=== PATIENT | female | born 1955 | race Caucasian/White ===

== ENCOUNTER 2021-01-09 13:48 | Inpatient (IN) | payer MEDICARE, MEDICAID, SELFPAY ==
[2021-01-09] VITALS (19 sets, daily range): BP systolic 120–133; BP diastolic 63–78; PULSE 72–80; RESP 18–35; TEMP 36.2–36.7; O2SAT 92–99; BMI 32.7
--- NOTE | ~2021-01-09 | XR_ITS ---
EXAMINATION: [id number] INDICATION: Right pleural effusion post thoracentesis TECHNIQUE: AP and lateral views of the chest were obtained. COMPARISON: CT, 01/10/2021 FINDINGS: There are large pleural effusions, left greater than right. No pneumothorax is identified. Airspace opacities of the mid and lower lung zones are again seen. Cardiomegaly is noted. IMPRESSION: 1. Large left and moderate size right pleural effusions. No pneumothorax. 2. Airspace opacities of the mid and lower lung zones, consistent with atelectasis. 3. Cardiomegaly. Reviewed, dictated and finalized at location A. ASTRUCTURE SECURITY ARCHITECT IMPRESSION: 1. Large left and moderate size right pleural effusions. No pneumothorax. 2. Airspace opacities of the mid and lower lung zones, consistent with atelecta sis. 3. Cardiomegaly.
--- NOTE | ~2021-01-09 | US_ITS ---
EXAMINATION:US venous doppler LE BI INDICATION:Lower extremity swelling TECHNIQUE: Multiple grayscale, color flow and Doppler images of the bilateral lower extremity deep ve nous systems were obtained and reviewed. COMPARISON:No prior studies for comparison. FINDINGS: The common femoral, superficial femoral and popliteal veins demonstrate normal respiratory variation, augmentation and compressibility. Color flow is also seen within the posterior tibial, pe roneal, greater saphenous and profunda veins. IMPRESSION: 1: No lower extremity deep venous thrombosis. Reviewed, dictated and finalized at location A. ATRIC SPEECH LANGUAGE PATHOLOGIST
--- NOTE | ~2021-01-09 | US_ITS ---
EXAMINATION: US venous doppler E DATE: 01/11/2021 16:19 INDICATION: Left upper extremity swelling TECHNIQUE: [place] scale images with and without compression and Doppler images of the left upper extrem ity veins were obtained. COMPARISON: None. FINDINGS: The left internal jugular vein, subclavian vein, axillary vein, brachial veins, basilic vein, cephali c vein, radial vein, and ulnar vein are patent. IMPRESSION: 1. Patent left upper extremity veins. No evidence of deep venous thrombosis. Reviewed, dictated and finalized at location A. T MANUFACTURING SUPERVISOR
--- NOTE | ~2021-01-09 | XR_ITS ---
EXAMINATION: XR chest 1V portable DATE: 01/13/2021 05:39 INDICATION: Pleural effusion. TECHNIQUE: A single frontal view of the chest was obtained. COMPARISON: Chest single view 01/09/2021, chest CT 01/10/2021 FINDINGS: There are small right and moderate-sized left pleural effusions. There are airspace opaciti es in all lung zones bilaterally with a perihilar and basilar predominance. No pneumothorax. Cardiome claudio is noted. Surgical clips in the right upper quadrant are likely from cholecystectomy. IMPRESSION: 1. Diffuse lung disease with a perihilar and basilar predominance with improvement at right lung base , consistent with pulmonary edema versus pneumonia. 2. Small right and moderate-sized left pleural effusions. 3. Cardiomegaly. Reviewed, dictated and finalized at location A. SPERSON BURIAL NEEDS IMPRESSION: 1. Diffuse lung disease with a perihilar and basilar predominance with improvem ent at right lung base, consistent with pulmonary edema versus pneumonia. 2. Small right and moderate-sized left pleural effusions. 3. Cardiomegaly.
--- NOTE | ~2021-01-09 | XR_ITS ---
EXAMINATION: XR chest 1V portable INDICATION: Shortness of breath TECHNIQUE: Portable AP chest at 1515 hours COMPARISON: None available FINDINGS: Cardiomegaly is noted. A diffuse interstitial pattern is present. More focal airspace opaci ties are present in the lung bases. There are moderate-sized pleural effusions. No pneumothorax is id entified. IMPRESSION: 1. Cardiomegaly with pulmonary edema. 2. Moderate-sized pleural effusions. 3. Bibasilar airspace opacities, consistent with atelectasis versus pneumonia. Reviewed, dictated and finalized at location A. ING OFFICER
--- NOTE | ~2021-01-09 | XR_ITS ---
EXAMINATION: XR abdomen obstructive series EXAM DATE: 01/15/2021 13:51 INDICATION: Nausea. TECHNIQUE: Frontal upright projection of the upper abdomen, frontal projection of the lower abdomen f or interpretation. There is no prior study for comparison. FINDINGS: There is moderate to large amount of colonic stool and gas, and patient may have fecal imp action. No small bowel obstruction suspected. There is left mid abdominal suture/anastomosis material . There are cholecystectomy clips. Right hip gamma nail. There are bony degenerative changes. No evid ence of basilar pleural effusions and adjacent airspace disease. No free intraperitoneal gas suspecte d. IMPRESSION: Moderate to large amount of colonic stool and gas, constipation, possible fecal impaction . Reviewed, dictated and finalized at location A. IMPRESSION: Moderate to large amount of colonic stool and gas, constipation, po ssible fecal impaction.
--- NOTE | ~2021-01-09 | US_ITS ---
EXAMINATION: US thoracentesis DATE: 01/12/2021 11:16 INDICATION: Pleural effusions TECHNIQUE: The procedure and its risks and benefits were discussed with the patient. Potential risks discussed included bleeding, infection, and pneumothorax. The patient understood the risks and agreed to proceed. The skin was prepped and draped in sterile fashion. 1% lidocaine was used for local anes thesia. Under ultrasound guidance, a 5 Fr catheter with trochar was advanced into the right pleural e ffusion. Fluid was aspirated. The catheter was removed, and a dressing was applied. There were no imm ediate complications. FINDINGS: Ultrasound images demonstrate a right pleural effusion and the catheter within the fluid. IMPRESSION: 1. Successful ultrasound-guided thoracentesis yielding 1000 mL of clear, yellow fluid. Reviewed, dictated and finalized at location A. NG TECHNICIAN
--- NOTE | ~2021-01-09 | US_ITS ---
EXAMINATION: US renal BI DATE: 01/16/2021 10:53 INDICATION: Elevated creatinine TECHNIQUE: Multiple ultrasound grayscale images of the kidneys were obtained. COMPARISON: None. FINDINGS: The right kidney measures 9.6 x 4.1 x 3.8 cm. The left kidney measures 8.9 x 4.6 x 3.5 cm. The kidney s demonstrate normal echogenicity. There is no hydronephrosis in either kidney. No stones identified . The bladder is normal. IMPRESSION: 1. Normal kidneys without hydronephrosis. Reviewed, dictated and finalized at location B.
--- NOTE | ~2021-01-09 | CT_ITS ---
EXAMINATION: CTA chest PE protocol EXAM DATE: 01/11/2021 10:31 INDICATION: Elevated D-dimer, recent hospital stay, hypoxia. TECHNIQUE: Spiral CTA of the chest (pulmonary arteries) was performed with 100 cc Omnipaque 350 intr avenous contrast injection. Images were acquired during the pulmonary arterial phase. Coronal maxi mum intensity projection 3D-reconstructions were created by the technologist on dedicated workstation . Axial, coronal and sagittal reformatted images were reviewed. The dose-length product (DLP) for t his examination was 584.00 mGy-cm. The exposure was tailored according to patient size (auto mA exp osure control), and iterative reconstruction (ASIR) was used as additional dose reduction technique. Correlation is made to chest x-ray from yesterday. FINDINGS: The main, central pulmonary arteries are dilated which can indicate elevated pulmonary gabriel rial pressure, pulmonary arterial hypertension. There are no pulmonary emboli in the 1st through 3r d order (central and interlobar) pulmonary arteries. Some loss of attenuation in the segmental pulmo nary arteries due to respiratory motion, but no intraluminal filling defects suspected. No thoracic aortic dissection. There our large right, and moderate to large left-sided pleural effusions. The lingula and left lower lobe are completely collapsed and there is multi segmental right lower lobe atelectasis. Some scatte red bilateral upper lobe regions of groundglass attenuation, could be edema or pneumonia. Tracheobron chial tree is patent. There is no mediastinal, hilar or axillary lymphadenopathy. There is no pne umothorax. There is cardiomegaly and trace pericardial effusion. There is moderate coronary arteri al calcification, arterial sclerosis. Cholecystectomy clips. Low-density incompletely imaged left ad renal gland lesion probably adenoma. There are no osteoblastic or osteolytic lesions identified. The re is moderate thoracic dextroscoliosis. IMPRESSION: 1. Limited segmental evaluation, but no pulmonary emboli are suspected. 2. Large right, moderate to large left pleural effusions with adjacent atelectasis, collapsed lingul a and left lower lobe, nearly collapsed right lower lobe. If symptomatic, consider right-sided thorac entesis. 3. Scattered upper lobe groundglass opacities, edema or pneumonia. 4. Pulmonary arterial hypertension. 5. Cardiomegaly. Reviewed, dictated and finalized at location B. OFF MACHINE OPERATOR CLOTH IMPRESSION: 1. Limited segmental evaluation, but no pulmonary emboli are suspected. 2. Large right, moderate to large left pleural effusions with adjacent atelect asis, collapsed lingula and left lower lobe, nearly collapsed right lower lobe. If symptomatic, consider right-sided thoracentesis. 3. Scattered upper lobe groundglass opacities, edema or pneumonia. 4. Pulmonary arterial hypertension. 5. Cardiomegaly.
--- NOTE | 2021-01-09 14:27 | ED.GENADULT ---
HPI - General Adult General Chief complaint: Shortness of Breath/Dyspnea Stated complaint: LOW O2 DURING THERAPY Time Seen by Provider: 01/09/21 13:53 Source: patient History of Present Illness HPI narrative: Patient is a 65 y/o female [facility] sats. She states that she has been SOB for 1 week. Her sat was reportedly 88% on RA and she was placement on O2. She has some cough, but no chest pain or fever. Related Data Home Medications Medication Instructions Recorded Confirmed All Day Allergy (cetirizine) 1 tab-cap PO DAILY 01/09/21 01/09/21 Saccharomyces boulardii [Florastor] 250 mg PO BID 01/09/21 01/09/21 Saccharomyces boulardii [Florastor] 250 mg PO BID 01/09/21 01/09/21 allopurinol 100 mg PO DAILY 01/09/21 01/09/21 apremilast [Otezla] 30 mg PO BID 01/09/21 01/09/21 aspirin [Aspir-81] 81 mg PO DAILY 01/09/21 01/09/21 atorvastatin 80 mg PO HS 01/09/21 01/09/21 bumetanide 0.5 mg PO DAILY 01/09/21 01/09/21 cranberry fruit concentrate [Azo 250 mg PO DAILY 01/09/21 01/09/21 Cranberry] escitalopram oxalate 10 mg PO DAILY 01/09/21 01/09/21 famotidine [Pepcid] 20 mg PO DAILY 01/09/21 01/09/21 ferrous sulfate 325 mg PO DAILY 01/09/21 01/10/21 fluticasone propionate [Flonase 1 spray INTRANASAL DAILY 01/09/21 01/09/21 Allergy Relief] furosemide [Lasix] 20 mg PO DAILY 01/09/21 01/09/21 magnesium oxide 400 mg PO BID 01/09/21 01/09/21 melatonin 5 mg PO HS PRN 01/09/21 01/09/21 metoprolol tartrate 50 mg PO BID 01/09/21 01/09/21 nystatin 100,000 unit TOPICAL TID 01/09/21 01/09/21 ondansetron 4 mg PO Q8H PRN 01/09/21 01/09/21 oxybutynin chloride 5 mg PO HS 01/09/21 01/09/21 potassium chloride [K-Tab] 40 meq PO BID 01/09/21 01/09/21 sitagliptin [Januvia] 50 mg PO DAILY 01/09/21 01/09/21 sodium bicarbonate 650 mg PO BID 01/09/21 01/09/21 tacrolimus 1 applic TOPICAL BID 01/09/21 01/09/21 travoprost [Travatan Z] 1 drp EACH EYE HS 01/09/21 01/09/21 vancomycin 125 mg PO BID 01/09/21 01/09/21 Allergies Allergy/AdvReac Type Severity Reaction Status Date / Time morphine Allergy Mild HIVES/RASH Verified 01/12/21 10:35 hydrocodone AdvReac Nausea Verified 01/12/21 10:35 timolol AdvReac Nausea Verified 01/12/21 10:35 Review of Systems Constitutional: Constitutional: Denies chills, Denies fever(s), Denies headache(s) and Denies weakness Eyes: Eyes: Denies blurry vision ENT: Denies headache(s) and Denies neck pain Cardiovascular: Cardiovascular: Denies chest pain and Reports dyspnea Respiratory: Respiratory: Reports cough and Reports dyspnea Gastrointestinal: Gastrointestinal: Denies abdominal pain, Denies diarrhea, Denies nausea and Denies vomiting Genitourinary: Genitourinary: Denies hematuria and Denies dysuria Musculoskeletal: Musculoskeletal: Denies back pain and Denies neck pain Neurologic: Denies headache(s) and Denies weakness FORMERLY [facility], 1928–1983 Past Medical History Medical History (Updated 01/15/21 @ 15:56 by Lorena Muniz MD) Anxiety Anxiety Aortic stenosis moderate aortic valve stenosis with a peak velocity of 239 cm/s, mean gradient of 12 mmHg, and aortic valve area of 1.2 cm2 Aortic stenosis moderate aortic valve stenosis with a peak velocity of 239 cm/s, mean gradient of 12 mmHg, and aortic valve area of 1.2 cm2 Atrial fibrillation Atrial fibrillation C. difficile colitis Patient was diagnosed early December 2020 and is supposed to remain on p.o. vancomycin until 01/24/2021 C. difficile colitis Patient was diagnosed early December 2020 and is supposed to remain on p.o. vancomycin until 01/24/2021 CHF (congestive heart failure) CHF (congestive heart failure) Chronic kidney disease Chronic kidney disease COPD (chronic obstructive pulmonary disease) COPD (chronic obstructive pulmonary disease) Coronary artery disease Coronary artery disease Diabetes mellitus Diabetes mellitus Essential hypertension Essential hypertension GERD (gastroesophageal reflux disease) GERD (gastroesophageal reflux disease) G
--- NOTE | 2021-01-09 14:28 | ECG_ITS ---
Measurements Intervals [place] Rate: 76 P: 194 [place]: 150 QRS: 167 QRSD: 64 T: 0 QT: 365 QTc: 412 Interpretive Statements SINUS RHYTHM OR ECTOPIC ATRIAL RHYTHM RIGHT AXIS DEVIATION POSSIBLE LEFT ATRIAL ENLARGEMENT RSR' IN V1 OR V2, CONSIDER RIGHT VENTRICULAR HYPERTROPHY OR RIGHT VCD LOW VOLTAGE- DIFFUSE LEADS BORDERLINE ST-T WAVE ABNORMALITY- ANTEROLAT/INF LEADS BASELINE ARTIFACT- V1-V6 BORDERLINE ECG Electronically Signed On 01-09-2021 16:32:30 INTEGRITY ASSESSOR by Demian Smith D.O.
[2021-01-09 15:15] LABS: Basophils Absolute Auto 0.1 K/mm3 (0.0-0.1); Basophils Percent Auto 0.9 % (0.2-1.2); Eosinophils Absolute Auto 0.1 K/mm3 (0-0.3); Eosinophils Percent Auto 0.8 % (0-4.4); Hematocrit 32.9 % (37.0-47.0); Hemoglobin 10.1 g/dL (12.0-15.0); Immature Granulocyte Absolute 0.05 K/mm3 (0.00-0.031); Immature Granulocyte Percent A 0.4 % (0-0.5); Lymphocytes Absolute Auto 0.79 K/mm3 (0.9-3.2); Lymphocytes Percent Auto 6.9 % (18.3-44.2); Mean Corpuscular HGB Conc 30.7 g/dl (32-36); Mean Corpuscular Hemoglobin 28.9 pg (26-34); Mean Corpuscular Volume 94.3 fl (80-100); Mean Platelet Volume 8.9 fl (7.4-10.4); Monocytes Absolute Auto 0.6 K/mm3 (0.1-0.6); Monocytes Percent Auto 5.5 % (2.6-8.5); Neutrophils Absolute Auto 9.7 K/mm3 (1.3-6.7); Neutrophils Percent Auto 85.5 % (45.5-73.1); Platelet Count Result 345 k/mm3 (150-375); Red Blood Count 3.49 M/mm3 (4.2-5.4); White Blood Count 11.4 K/mm3 (4.5-10.0)
[2021-01-09 15:25] LABS: Alanine Aminotransferase 20 U/L (4-35); Albumin Level 2.3 g/dL (3.5-5.1); Alkaline Phosphatase 169 U/L (38-126); Anion Gap -2 mmol/L (8-16); Aspartate Amino Transferase 42 U/L (14-36); Bilirubin,Total 0.3 mg/dL (0.2-1.3); Blood Urea Nitrogen 25 mg/dL (7-17); Calcium 7.9 mg/dL (8.4-10.2); Carbon Dioxide 33 mmol/L (22-30); Chloride 109 mmol/L (98-107); Estimated CRCL calculation 51 ml/min; Estimated Glomerular Filt Rate 50; Glucose 129 mg/dL (65-105); Potassium 5.7 mmol/L (3.4-5.0); Sodium 140 mmol/L (137-145)
[2021-01-09 15:43] LABS: NT Pro B Type Natriuretic Pept 24700 PG/ML (5-100); Troponin I 0.112 ng/mL (0.000-0.034)
[2021-01-09] MEDS: FUROSEMIDE INJ 40 MG/4 ML VIAL IV PUSH (16:46)
[2021-01-09 19:09] LABS: Troponin I 0.099 ng/mL (0.000-0.034)
--- NOTE | 2021-01-09 19:38 | ADMGEN ---
This patient, Ana Paula Walden, was admitted to IMU Room 206-02 at 1830. Patient/family oriented to hospital policies and general routines including ID bracelet, bed and alarms, visiting hours, pain management, procedures, bathroom and other care routines, personal items, smoking policy, room service/diet, and visiting hours. Information on how to activate the Rapid Response Team has been discussed. Patient/Family are encouraged to report perceived risks to care and to ask questions if they do not understand what they are told or what they should do.
[2021-01-10] VITALS (11 sets, daily range): BP systolic 115–133; BP diastolic 63–84; PULSE 69–84; RESP 18–22; TEMP 36.2–36.4; O2SAT 91–95
--- NOTE | 2021-01-10 | ECHO_ITS ---
Patient Info Name: Ana Paula Walden Age: 65 years : 1955 Gender: Female Ht: 65 in Wt: 189 lbs BSA: 2.01 m2 HR: 78 bpm BP: 115 / 63 mmHg Heart Rhythm: Sinus Rhythm Technical Quality: Good Exam Date: 01/10/2021 9:16 AM Exam Location: [facility] Pulmonary Exam Room: [facility] Patient Status: Inpatient Admit Date: 01/10/2021 Staff Ordering Physician: Yoly Horowitz PA-C Rib Bender: Sara Mobley RDCS Attending Provider: Yoly Horowitz PA-C Referring Physician: Lor CARD; Exam Type: CA echo doppler color flow Study Info Indications - CAD HTN HX/O AFIB COPD - CHF EXACERBATION Complete two-dimensional, color flow and Doppler transthoracic echocardiogram is performed. Summary 1. Complete two-dimensional, color flow and Doppler transthoracic echocardiogram is performed. 2. Left ventricular chamber dimension is mildly enlarged. 3. Left ventricular systolic function is normal, estimated at 55-60%. 4. There is mildly increased left ventricular wall thickness. 5. The left ventricular diastolic function is grade II diastolic dysfunction. 6. The inferior wall, apical septum, and apical cap are hypokinetic. 7. There is moderate aortic valve stenosis with a peak velocity of 239 cm/s, mean gradient of 12 mmHg, and aortic valve area of 1.2 cm2. 8. There is mild aortic valve regurgitation. 9. There is mild mitral valve regurgitation. 10. The mitral valve has thickened leaflets and calcified leaflets. 11. There is mild tricuspid valve regurgitation. 12. Mild pulmonary hypertension, estimated pulmonary arterial systolic pressure is 36 mmHg. 13. There is mild pulmonic regurgitation. Left Ventricle Left ventricular chamber dimension is mildly enlarged. Left ventricular systolic function is normal, estimated at 55-60%. There is mildly increased left ventricular wall thickness. The left ventricular diastolic function is grade II diastolic dysfunction. The inferior wall, apical septum, and apical cap are hypokinetic. Right Ventricle Right ventricular chamber dimension is normal. Right ventricular systolic function is normal. Left Atria Left atrial chamber dimension is mildly enlarged. Right Atria Right atrial chamber dimension is normal. Atrial Septum Intact interatrial septum visualized by color flow imaging. Aortic Valve The aortic valve is trileaflet. There is moderate aortic valve stenosis with a peak velocity of 239 cm/s, mean gradient of 12 mmHg, and aortic valve area of 1.2 cm2. There is mild aortic valve regurgitation. Pulmonic Valve The pulmonic valve is normal. There is no pulmonic valve stenosis. There is mild pulmonic regurgitation. Mitral Valve The mitral valve has thickened leaflets and calcified leaflets. There is no mitral valve stenosis. There is mild mitral valve regurgitation. Tricuspid Valve The tricuspid valve leaflets are normal. There is no significant tricuspid valve stenosis. There is mild tricuspid valve regurgitation. Mild pulmonary hypertension, estimated pulmonary arterial systolic pressure is 36 mmHg. Pericardium/Pleural The pericardium appears normal. There is no pericardial effusion. Inferior Vena Cava Dilated inferior vena cava with >50% collapse upon inspiration consistent with elevated right atrial pressure, 10 mmHg. Aorta The aortic root size at the sinus of Valsalva is normal. The prox ascending aorta size is normal. There is mild aortic atherosclerosis. Leyla
--- NOTE | 2021-01-10 02:41 | PM.IMHP ---
H&P: HPI History of Present Illness Date/Time: 01/10/21 02:41 Chief Complaint: Low oxygen saturations Narrative: Ana Paula Walden is a 65 year old female of recent diagnosis of C diff 3 weeks ago, CHF, coronary artery disease, hypertension, COPD, and diabetes who presented from [facility] while participating in physical therapy. The patient had evidently does been discharged from another facility last week due to CHF exacerbation. According to alf records the patient was discharged from the hospital 12/08/2020. The patient is a fair historian due to her history of intellectual disability. The patient reports that she has been short of breath for about 1 week. She denies any chest pain. She felt as if her heart was racing but her heart rate was normal on arrival to the hospital and on evaluation at the alf. Her oxygen saturations on room air were 88%. She has been having a mild nonproductive cough. She tested negative for COVID at the alf. The patient was diagnosed with is C diff colitis and early December. She is post continue p.o. vancomycin until 01/24/2021. She reports that she is still having some loose stools. She denies any abdominal pain. She is on probiotics. Patient has remained afebrile. She has edema noted to bilateral hands 1+, trace edema lower extremities. She has difficulty with urinary incontinence. She denies any hematuria. She is currently alert and oriented x4. The patient reports that her shortness of breath has improved significantly with nasal cannula oxygen. She is satting 92% on 4 L nasal cannula. Source of information is alf records and patient report. The patient is only a fair historian. The patient has never been to this facility before. Her last hospitalization was at [place]. Review of Systems Review of Systems: Narrative: 12 systems were reviewed with pertinent positives and negatives per HPI. Except as documented in the HPI, all other systems were reviewed and are negative. [facility] Past Medical History Medical History (Updated 01/10/21 @ 03:52 by Gina Tolbert DO) Anxiety Atrial fibrillation C. difficile colitis Patient was diagnosed early December 2020 and is supposed to remain on p.o. vancomycin until 01/24/2021 CHF (congestive heart failure) Chronic kidney disease COPD (chronic obstructive pulmonary disease) Coronary artery disease Essential hypertension GERD (gastroesophageal reflux disease) Glaucoma Hyperlipidemia Hypo-osmolar hyponatremia Intellectual disability Psoriatic arthritis Surgical History Surgical History (Updated 01/10/21 @ 03:37 by Gina Tolbert DO) History of hysteroscopy January 2013 Hx of cholecystectomy S/P CABG x 2 Family History Family History (Updated 01/10/21 @ 03:46 by Gina Tolbert DO) Mother Lung disease Social History Social History (Updated 01/10/21 @ 03:50 by Gina Tolbert DO) Social History: She reports that she has lived at [facility] for approximately 1 year. She is and her lives at the alf with her. They have been for 32 years. They moved to the alf when her had a lower extremity amputation. She reports that both of her parents are still living. Primary care provider: Dr. Giovanny Barajas Code status: Full code per state form Smoking status: Never smoker Alcohol intake: never Substance use: never Occupation/Education: other Additional occupation/education comments: She is on disability due to her intellectual impairment. Gender identity (if verbalized by the patient): Female Spiritual care concerns: No Meds Home Medications and Allergies Home Medications Medication Instructions Recorded Confirmed Type All Day Allergy (cetirizine) 1 tab-cap PO DAILY 01/09/21 01/09/21 History Saccharomyces boulardii [Florastor] 250 mg PO BID 01/09/21 01/09/21 History Saccharomyces boulardi
[2021-01-10] MEDS: LATANOPROST 0.005% OP SOLN 2.5 ML BTL 1 DROP EACH EYE ×2 (03:15→20:44)
[2021-01-10] MEDS: METOPROLOL TARTRATE 50 MG TAB PO ×3 (03:15→20:42)
[2021-01-10] MEDS: ATORVASTATIN 40 MG TABLET 80 MG PO ×2 (03:15→20:43)
--- NOTE | 2021-01-10 04:33 | PC.NURSE ---
This patient, Ana Paula Walden, was received from [IMU] on 01/10/21 at 0420. Patient/family oriented to unit policies and routines
--- NOTE | 2021-01-10 04:34 | PC.NURSE ---
patient transferred to 3 rd med surg. report given to jessica tijerina.
[2021-01-10 05:51] LABS: Hemoglobin 9.4 g/dL (12.0-15.0); Mean Corpuscular HGB Conc 30.3 g/dl (32-36); Mean Corpuscular Hemoglobin 28.3 pg (26-34); Mean Corpuscular Volume 93.4 fl (80-100); Mean Platelet Volume 8.7 fl (7.4-10.4); Platelet Count Result 321 k/mm3 (150-375); Red Blood Count 3.32 M/mm3 (4.2-5.4); Red Cell Distribution Width 17.7 % (11.5-14.5); White Blood Count 9.7 K/mm3 (4.5-10.0)
[2021-01-10 05:57] LABS: Hemoglobin A1C 4.8 % (<5.7)
[2021-01-10 06:04] LABS: Anion Gap -1 mmol/L (8-16); Blood Urea Nitrogen 24 mg/dL (7-17); Calcium 8.1 mg/dL (8.4-10.2); Carbon Dioxide 32 mmol/L (22-30); Chloride 110 mmol/L (98-107); Estimated CRCL calculation 50 ml/min; Estimated Glomerular Filt Rate 50; Glucose 91 mg/dL (65-105); Potassium 5.3 mmol/L (3.4-5.0); Sodium 141 mmol/L (137-145)
[2021-01-10] MEDS: FUROSEMIDE INJ 40 MG/4 ML VIAL IV PUSH (07:28)
[2021-01-10 08:26] LABS: Glucose Point of Care 95 (65-105)
[2021-01-10] MEDS: SODIUM BICARBONATE TAB 650 MG TABLET PO ×2 (08:55→16:41)
[2021-01-10] MEDS: ENOXAPARIN 40 MG/0.4 ML SYRINGE SUB-Q (08:55)
[2021-01-10] MEDS: SACCHAROMYCES BOULARDII 250 MG CAPSULE PO ×2 (08:55→16:41)
[2021-01-10] MEDS: ESCITALOPRAM OXALATE 10 MG TABLET PO (08:56)
[2021-01-10] MEDS: ASPIRIN 81 MG ENTERIC TABLET PO (08:56)
[2021-01-10] MEDS: FLUTICASONE PROPIONATE 0.05% NA SPR 16 GM BTL (*BKC) 1 SPRAY NASAL (08:56)
[2021-01-10] MEDS: MAGNESIUM OXIDE 400 MG TABLET PO ×2 (08:56→16:42)
[2021-01-10] MEDS: FAMOTIDINE 20 MG TABLET PO (08:56)
[2021-01-10] MEDS: allopurinoL 100 MG TABLET PO (08:56)
[2021-01-10 12:00] LABS: Glucose Point of Care 113 (65-105)
--- NOTE | 2021-01-10 14:19 | PM.IMPN ---
Progress Note: A&P Assessment and Plan (1) Acute respiratory failure with hypoxia: Code(s): J96.01 - Acute respiratory failure with hypoxia Status: Acute Assessment and Plan: CXR demonstrates pulmonary edema, moderate pleural effusions, and bibasilar opacities. BNP markedly elevated at 24,700. She was initially on 4 liters per nasal cannula and she was weaned to 3 liters per nasal cannula today. Acute hypoxic respiratory failure is most likely secondary to CHF exacerbation. D. Dimer ordered given recent hospitalization and elevated. Clinically, she does not appear to have pneumonia and bibasilar opacities are likely consistent with atelectasis. Order CTA chest to r/o PE given hypoxia, elevated D. dimer, recent hospital stay Continue supplemental oxygen as needed to maintain oxygen saturation >90%, waen as tolerated Further plan as outlined below (2) CHF exacerbation: Qualifiers: Heart failure type: unspecified Qualified Code(s): I50.9 - Heart failure, unspecified Code(s): I50.9 - Heart failure, unspecified Status: Acute Assessment and Plan: Supported by CXR findings of pulmonary edema, moderate pleural effusions, and BNP 24,700. She notes increased dyspnea for 1 month, worse in the past week, orthopnea, and increased swelling to extremities. Echocardiogram performed today (01/10/21) demonstrates EF 55-60%, grade II diastolic dysfunction, hypokinesis of the inferior wall, apical septum, and apical cap, moderate aortic stenosis. She has responded well to diuresis. Cardiology consulted and input appreciated Continue IV lasix Monitor volume status closely with daily weight. Urine output is difficult due to chronic incontinence. (3) Troponin level elevated: Code(s): R77.8 - Other specified abnormalities of plasma proteins Status: Acute Assessment and Plan: Troponin was elevated to 0.112 but trend was flat. This is most likely secondary to acute CHF exacerbation and felt unlikely secondary to ACS. She has no complaints of chest pain. I have asked cardiology to see her. Her previous echo and EkGs have been requested. Echocardiogram performed today (01/10/21) demonstrates hypokinesis of the inferior wall, apical septum, and apical cap. Cardiology is following with input greatly appreciated She will need Lexiscan which was already recommended during her last hospital stay (4) Hyperkalemia: Code(s): E87.5 - Hyperkalemia Status: Acute Assessment and Plan: Improving. Likely secondary to continued oral potassium supplementation and underlying CKD. Will monitor closely with repeat BMP tomorrow Hold oral potassium supplement (5) C. difficile colitis: Code(s): A04.72 - Enterocolitis due to Clostridium difficile, not specified as recurrent Status: Acute Assessment and Plan: Diagnosed early Dec 2020. She still reports 3-4 loose stools daily but much improved overall since starting treatment in early December. She has no abdominal pain or distention. Continue oral vancomycin Initiate isolation precautions (6) Diabetes mellitus: Code(s): E11.9 - Type 2 diabetes mellitus without complications Status: Acute Assessment and Plan: Hemoglobin A1c is 4.8 on 01/10/21. Hold januvia while inpatient Continue ACHS glucose monitoring, sliding scale insulin, and hypoglycemia protocol for now although may consider discontinuing if blood sugar is well-controlled given A1c (7) Essential hypertension: Code(s): I10 - Essential (primary) hypertension Status: Acute Assessment and Plan: Blood pressures are at target. Most recent BP 121/63. Continue metoprolol Continue to monitor ad adjust treatment as necessary (8) Atrial fibrillation: Code(s): I48.91 - Unspecified atrial fibrillation Status: Inactive Assessment and Plan: Paroxysmal. She follows
[2021-01-10 15:27] LABS: D Dimer 2.26 ug/mL (<0.48)
--- NOTE | 2021-01-10 15:28 | PM.CNCAR ---
Assessment and Plan Assessment and plan (1) Troponin level elevated: Code(s): R77.8 - Other specified abnormalities of plasma proteins Status: Acute Assessment and Plan: this is related to CHF. Unlikely from acute plaque rupture. (2) CHF exacerbation: Qualifiers: Heart failure type: unspecified Qualified Code(s): I50.9 - Heart failure, unspecified Code(s): I50.9 - Heart failure, unspecified Status: Acute Assessment and Plan: Acute on chronic likely mixed systolic and diastolic congestive heart failure. Echocardiogram has already been performed and will review. continue beta-bella, IV diuretics but will reduce furosemide down to 40 mg IV daily. follow electrolytes (3) CAD (coronary artery disease): Code(s): I25.10 - Atherosclerotic heart disease of [place] coronary artery without angina pectoris Status: Acute Assessment and Plan: Plan is already established for outpatient stress test per Dr. Dias . Continue aspirin, beta-bella, statin (4) C. difficile colitis: Code(s): A04.72 - Enterocolitis due to Clostridium difficile, not specified as recurrent Status: Acute Assessment and Plan: on vancomycin (5) Essential hypertension: Code(s): I10 - Essential (primary) hypertension Status: Acute Assessment and Plan: at goal History of Present Illness History of Present Illness Consult date/time: 01/10/21 15:28 Requesting physician: Yoly Horowitz PA-C Consult reason: congestive heart failure and Other (Elevated troponin) Reason For Visit: chf Narrative: date of service 01/10/2021 History: Patient is a 65-year-old female who has a history of coronary artery disease, paroxysmal atrial fibrillation who follows with Dr. Dias. She was recently hospitalized at [facility] for C diff infection. She also had elevated troponins at that time and the plan was for an outpatient stress test to be performed after C diff infection is treated. She came to this hospital though after only being discharged recently because of shortness of breath. She states that she has been short of breath for at least a month. She also has been having some worsening lower extremity swelling also for about 1 month. She denies any chest pain, syncope, presyncope, paroxysmal nocturnal dyspnea, orthopnea, palpitations. She has no bleeding problems. She is still having diarrhea. She was found to have at least some trace to mild edema in her hands and legs. She was admitted for further workup evaluation especially since she was satting 92% on 4 L via nasal cannula. Review of Systems Review of Systems: All systems reviewed & are unremarkable except as noted in HPI and below Constitutional: Constitutional: Reports weakness Eyes: Eyes: Denies blurry vision ENT: Reports Normal hearing present Cardiovascular: Cardiovascular: Denies chest pain Respiratory: Respiratory: Reports dyspnea and Reports dyspnea on exertion Gastrointestinal: Gastrointestinal: Denies abdominal pain and Reports diarrhea Genitourinary: Genitourinary: Denies flank pain Musculoskeletal: Musculoskeletal: Denies myalgias and Denies neck pain Integumentary/Breasts: Skin/Breast: Reports dry skin Neurologic: Denies headache(s) and Denies numbness Psychiatric: Psychiatric: Denies anxiety and Denies confusion Endocrine: Endocrine: Denies fatigue Hematologic/Lymphatic: Hematologic/Lymphatic: Denies easy bleeding and Denies easy bruising Allergic/Immunologic: Allergic/Immunologic: Denies GI upset with certain foods PMFSH Past Medical History Medical History Anxiety Atrial fibrillation C. difficile colitis Patient was diagnosed early December 2020 and is supposed to remain on p.o. vancomycin until 01/24/2021 CHF (congestive heart failure) Chronic kidney disease COPD (chronic obstructive pulmonary disease) Coron
[2021-01-10 17:50] LABS: Glucose Point of Care 180 (65-105)
[2021-01-10 20:27] LABS: Glucose Point of Care 132 (65-105)
[2021-01-11 06:00] VITALS: BP 140/84; PULSE 67; RESP 20; TEMP 36.2; O2SAT 90
[2021-01-11 06:16] LABS: Basophils Absolute Auto 0.1 K/mm3 (0.0-0.1); Basophils Percent Auto 1.1 % (0.2-1.2); Eosinophils Absolute Auto 0.1 K/mm3 (0-0.3); Eosinophils Percent Auto 1.3 % (0-4.4); Hematocrit 31.8 % (37.0-47.0); Hemoglobin 9.6 g/dL (12.0-15.0); Immature Granulocyte Absolute 0.05 K/mm3 (0.00-0.031); Immature Granulocyte Percent A 0.6 % (0-0.5); Lymphocytes Absolute Auto 0.81 K/mm3 (0.9-3.2); Lymphocytes Percent Auto 9.9 % (18.3-44.2); Mean Corpuscular HGB Conc 30.2 g/dl (32-36); Mean Corpuscular Hemoglobin 28.4 pg (26-34); Mean Corpuscular Volume 94.1 fl (80-100); Mean Platelet Volume 8.7 fl (7.4-10.4); Monocytes Absolute Auto 0.7 K/mm3 (0.1-0.6); Monocytes Percent Auto 8.6 % (2.6-8.5); Neutrophils Absolute Auto 6.4 K/mm3 (1.3-6.7); Neutrophils Percent Auto 78.5 % (45.5-73.1); Platelet Count Result 293 k/mm3 (150-375); Red Blood Count 3.38 M/mm3 (4.2-5.4); Red Cell Distribution Width 17.9 % (11.5-14.5); White Blood Count 8.2 K/mm3 (4.5-10.0)
[2021-01-11 06:32] LABS: Alanine Aminotransferase 17 U/L (4-35); Albumin Level 2.4 g/dL (3.5-5.1); Alkaline Phosphatase 159 U/L (38-126); Anion Gap 1 mmol/L (8-16); Aspartate Amino Transferase 31 U/L (14-36); Bilirubin,Total 0.3 mg/dL (0.2-1.3); Blood Urea Nitrogen 24 mg/dL (7-17); Calcium 8.2 mg/dL (8.4-10.2); Carbon Dioxide 30 mmol/L (22-30); Chloride 109 mmol/L (98-107); Estimated CRCL calculation 54 ml/min; Estimated Glomerular Filt Rate 56; Glucose 94 mg/dL (65-105); Potassium 5.3 mmol/L (3.4-5.0); Sodium 140 mmol/L (137-145)
[2021-01-11 08:00] VITALS: O2SAT 90
[2021-01-11 08:07] LABS: Glucose Point of Care 111 (65-105)
--- NOTE | 2021-01-11 09:25 | PM.PNCARD ---
Progress Note: A&P Assessment and Plan (1) Troponin level elevated: Code(s): R77.8 - Other specified abnormalities of plasma proteins Status: Acute Assessment and Plan: this is related to CHF. Unlikely from acute plaque rupture. (2) CHF exacerbation: Qualifiers: Heart failure type: unspecified Qualified Code(s): I50.9 - Heart failure, unspecified Code(s): I50.9 - Heart failure, unspecified Status: Acute Assessment and Plan: Acute on chronic likely mixed systolic and diastolic congestive heart failure. continue beta-bella, will increase her furosemide back to 40 mg IV b.i.d.. Will also check a pre-albumin level (3) CAD (coronary artery disease): Code(s): I25.10 - Atherosclerotic heart disease of [place] coronary artery without angina pectoris Status: Acute Assessment and Plan: Plan is already established for outpatient stress test per Dr. Dias . Continue aspirin, beta-bella, statin (4) C. difficile colitis: Code(s): A04.72 - Enterocolitis due to Clostridium difficile, not specified as recurrent Status: Acute Assessment and Plan: on vancomycin (5) Essential hypertension: Code(s): I10 - Essential (primary) hypertension Status: Acute Assessment and Plan: at goal (6) Aortic stenosis: Code(s): I35.0 - Nonrheumatic aortic (valve) stenosis Status: Acute Assessment and Plan: Moderate Subjective Date/time seen: 01/11/21 09:25 Interval history: 65-year-old admitted for shortness of breath and diarrhea Date of service 01/11/2021: She should more short of breath today. Diffuse edema. No chest pain Review of Systems Review of Systems: All systems reviewed & are unremarkable except as noted in HPI and below Constitutional: Constitutional: Denies fatigue, Denies headache(s) and Reports weakness Eyes: Eyes: Denies blurry vision ENT: Reports Normal hearing present, Denies headache(s) and Denies neck pain Cardiovascular: Cardiovascular: Denies chest pain, Reports dyspnea and Reports dyspnea on exertion Respiratory: Respiratory: Reports dyspnea and Reports dyspnea on exertion Gastrointestinal: Gastrointestinal: Denies abdominal pain and Reports diarrhea Genitourinary: Genitourinary: Denies flank pain Musculoskeletal: Musculoskeletal: Denies myalgias, Denies neck pain and Denies numbness Integumentary/Breasts: Skin/Breast: Reports dry skin Neurologic: Reports Normal hearing present, Denies confusion, Denies headache(s), Denies numbness and Reports weakness Psychiatric: Psychiatric: Denies anxiety and Denies confusion Endocrine: Endocrine: Denies fatigue Hematologic/Lymphatic: Hematologic/Lymphatic: Denies easy bleeding and Denies easy bruising Allergic/Immunologic: Allergic/Immunologic: Denies GI upset with certain foods Exam Narrative: Exam Narrative: Alert oriented appears to be in no acute distress. Appears stated age Const: General: comfortable and no acute distress; No confusion Orientation/consciousness: No confusion HENMT: General nose exam: Normal nares present Eyes: Sclera: sclerae normal Neck: Neck: supple and no JVD Chest: Other: no reproducible chest wall pain to palpation Resp: Auscultation: clear to auscultation bilaterally Cardio: Rate: regular rate Rhythm: regular rhythm GI: Inspection: non-distended Skin: General skin exam: normal color Neuro: General: No confusion Cranial nerves: Yes Normal hearing present Cognition (Neuro): normal cognition Speech: normal speech Extrem: General: normal to inspection and edema (1+ bilateral lower extremity edema) Psych: Mental Status: mental status grossly normal Objective Data Vital Signs Vital Signs: Vital Signs - 24 hr 01/10/21 11:42 01/10/21 12:35 01/10/21 14:00 Temperature 36.4 C Pulse Rate 72 69 Respiratory Rate 20 Blood Pressure 121/63 Pulse Oximetry 93 91
--- NOTE | 2021-01-11 09:39 | PCOTNOTE ---
Attempted OT evaluation, per RN hold evaluation until patient returns from testing. will follow and attempt at later time.
[2021-01-11 09:59] LABS: Prealbumin 14.5 mg/dL (17.6-36.0)
[2021-01-11 10:52] VITALS: PULSE 67
[2021-01-11] MEDS: SACCHAROMYCES BOULARDII 250 MG CAPSULE PO ×2 (10:52→17:38)
[2021-01-11] MEDS: METOPROLOL TARTRATE 50 MG TAB PO ×2 (10:52→20:23)
[2021-01-11] MEDS: SODIUM BICARBONATE TAB 650 MG TABLET PO ×2 (10:52→17:39)
[2021-01-11] MEDS: MAGNESIUM OXIDE 400 MG TABLET PO ×2 (10:53→17:38)
[2021-01-11] MEDS: allopurinoL 100 MG TABLET PO (10:53)
[2021-01-11] MEDS: ASPIRIN 81 MG ENTERIC TABLET PO (10:53)
[2021-01-11] MEDS: ESCITALOPRAM OXALATE 10 MG TABLET PO (10:53)
[2021-01-11] MEDS: FAMOTIDINE 20 MG TABLET PO (10:53)
[2021-01-11] MEDS: FLUTICASONE PROPIONATE 0.05% NA SPR 16 GM BTL (*BKC) 1 SPRAY NASAL (10:53)
[2021-01-11] MEDS: ENOXAPARIN 40 MG/0.4 ML SYRINGE SUB-Q (10:54)
[2021-01-11 12:05] LABS: Glucose Point of Care 96 (65-105)
[2021-01-11 13:24] LABS: Prothrombin Time 13.4 Seconds (11.1-14.7)
[2021-01-11 13:25] LABS: Partial Thromboplastin Time 37.1 SECONDS (22.3-36.8)
[2021-01-11 13:37] LABS: Lactate Dehydrogenase 517 U/L (313-618)
--- NOTE | 2021-01-11 13:41 | PM.IMPN ---
Progress Note: A&P Assessment and Plan (1) Acute respiratory failure with hypoxia: Code(s): J96.01 - Acute respiratory failure with hypoxia Status: Acute Assessment and Plan: CXR demonstrated pulmonary edema, moderate pleural effusions, and bibasilar opacities. BNP markedly elevated at 24,700. She was initially on 4 liters per nasal cannula and she was weaned to 3 liters per nasal cannula 01/10. Acute hypoxic respiratory failure is most likely secondary to CHF exacerbation. D. Dimer ordered given recent hospitalization and elevated so chest CTA performed and shows no pulmonary embolism but large effusion on right and moderate to large on left with compressive atelectasis. Clinically, she does not appear to have pneumonia and bibasilar opacities are likely consistent with atelectasis. Continue supplemental oxygen as needed to maintain oxygen saturation >90%, waen as tolerated Further plan as outlined below (2) CHF exacerbation: Qualifiers: Heart failure type: unspecified Qualified Code(s): I50.9 - Heart failure, unspecified Code(s): I50.9 - Heart failure, unspecified Status: Acute Assessment and Plan: Supported by CXR findings of pulmonary edema, moderate pleural effusions, and BNP 24,700. She notes increased dyspnea for 1 month, worse in the past week, orthopnea, and increased swelling to extremities. Echocardiogram performed 01/10/21 demonstrates EF 55-60%, grade II diastolic dysfunction, hypokinesis of the inferior wall, apical septum, and apical cap, moderate aortic stenosis. Cardiology following and input appreciated Continue IV lasix, increased back to 40mg IV BID today and may consider increasing further if no improvement Monitor volume status closely with daily weight. Plan for martinez catheter for accurate urine output to see how she is responding to diuresis. (3) Generalized edema: Code(s): R60.1 - Generalized edema Status: Acute Assessment and Plan: [place] most likely secondary to CHF however hypoalbuminemia considered as well given diffuse swelling. Prealbumin low Urinalysis demonstrates 2+ protein Will check random urine protein and consider 24 hour urine protein to evaluate for possible nephrotic syndrome based on that result (4) Pleural effusion: Code(s): J90 - Pleural effusion, not elsewhere classified Status: Acute Assessment and Plan: CTA chest demonstrates large right and moderate to large left pleural effusion with adjacent atelectasis. Likely transudative secondary to fluid overload. She continues to report dyspnea and remains hypoxic. Plan for ultrasound-guided diagnostic and therapeutic thoracentesis. I discussed this with her today and she is in agreement to proceed. Continue diuresis (5) Troponin level elevated: Code(s): R77.8 - Other specified abnormalities of plasma proteins Status: Acute Assessment and Plan: Troponin was elevated to 0.112 but trend was flat. This is most likely secondary to acute CHF exacerbation and felt unlikely secondary to ACS. Cardiology was consulted with input greatly appreciated. She did have recent NSTEMI during previous hospitalization. Echocardiogram performed 01/10/21 demonstrates hypokinesis of the inferior wall, apical septum, and apical cap. Discussed with cardiology and she will need outpatient Lexiscan stress test with Dr. Dias outpatient once she recovers from her acute CHF exacerbation which she is aware of and planning for. (6) Hyperkalemia: Code(s): E87.5 - Hyperkalemia Status: Acute Assessment and Plan: Improving. Likely secondary to continued oral potassium supplementation and underlying CKD. Potassium 5.2, improving. Hold oral potassium supplement Low potassium diet Follow with BMP daily, should improve with lasix (7) C. difficile colitis: Code(s): A04.72 - Enterocolitis due to Clostridium dif
[2021-01-11 13:57] LABS: Potassium 5.2 mmol/L (3.4-5.0)
[2021-01-11 15:32] LABS: Add Urine Microscopic? YES; Appearance Urine Clear (Clear); Bacteria Urine 2+ /hpf; Bilirubin Urine Negative (Negative); Blood Urine Negative (Negative); Color Urine Yellow (Yellow); Glucose Urine UA Negative (Negative); Ketones Urine Trace mg/dL (Negative); Leukocyte Esterase Ur Negative LEU/UL (Negative); Mucus Urine Rare /lpf; Nitrate Urine Negative (Negative); Protein Urine 2+ mg/dL (Negative); Squamous Epithelial Cell Urine Rare /hpf (Few); Urobilinogen Urine Negative mg/dL (<2.0); WBC Urine 0-3 /hpf
[2021-01-11 16:27] LABS: SARS-CoV-2 RNA PCR Negative
[2021-01-11 17:12] LABS: Glucose Point of Care 99 (65-105)
[2021-01-11] MEDS: FUROSEMIDE INJ 40 MG/4 ML VIAL IV PUSH (17:38)
[2021-01-11 17:45] LABS: Total Protein Urine Random 99 mg/dL
[2021-01-11 20:00] VITALS: PULSE 67; RESP 20; O2SAT 90
[2021-01-11] MEDS: LATANOPROST 0.005% OP SOLN 2.5 ML BTL 1 DROP EACH EYE (20:21)
[2021-01-11] MEDS: MELATONIN 5 MG TABLET PO (20:21)
[2021-01-11] MEDS: ATORVASTATIN 40 MG TABLET 80 MG PO (20:21)
[2021-01-11 20:23] VITALS: PULSE 67
[2021-01-11 22:00] VITALS: BP 137/75; PULSE 72; RESP 20; TEMP 36.4; O2SAT 97
[2021-01-12] VITALS (14 sets, daily range): BP systolic 102–140; BP diastolic 48–79; PULSE 60–81; RESP 20–24; TEMP 36.3–36.6; O2SAT 86–100
[2021-01-12 06:44] LABS: Hematocrit 31.8 % (37.0-47.0); Hemoglobin 9.5 g/dL (12.0-15.0); Mean Corpuscular HGB Conc 29.9 g/dl (32-36); Mean Corpuscular Hemoglobin 28.1 pg (26-34); Mean Corpuscular Volume 94.1 fl (80-100); Mean Platelet Volume 8.6 fl (7.4-10.4); Platelet Count Result 289 k/mm3 (150-375); Red Blood Count 3.38 M/mm3 (4.2-5.4); Red Cell Distribution Width 18.2 % (11.5-14.5); White Blood Count 6.4 K/mm3 (4.5-10.0)
[2021-01-12 06:58] LABS: Alanine Aminotransferase 19 U/L (4-35); Albumin Level 2.3 g/dL (3.5-5.1); Alkaline Phosphatase 159 U/L (38-126); Anion Gap -1 mmol/L (8-16); Aspartate Amino Transferase 34 U/L (14-36); Bilirubin,Total 0.4 mg/dL (0.2-1.3); Blood Urea Nitrogen 21 mg/dL (7-17); Calcium 7.8 mg/dL (8.4-10.2); Carbon Dioxide 34 mmol/L (22-30); Chloride 106 mmol/L (98-107); Estimated CRCL calculation 54 ml/min; Estimated Glomerular Filt Rate 56; Glucose 85 mg/dL (65-105); Magnesium 1.9 mg/dL (1.6-2.3); Potassium 4.7 mmol/L (3.4-5.0); Sodium 139 mmol/L (137-145)
[2021-01-12] MEDS: FUROSEMIDE INJ 40 MG/4 ML VIAL IV PUSH ×2 (08:31→17:12)
[2021-01-12] MEDS: FLUTICASONE PROPIONATE 0.05% NA SPR 16 GM BTL (*BKC) 1 SPRAY NASAL (08:31)
[2021-01-12] MEDS: METOPROLOL TARTRATE 50 MG TAB PO ×2 (08:38→20:48)
[2021-01-12 09:01] LABS: Cholesterol 117 mg/dL (0-200); HDL Direct 40 mg/dL; Triglycerides 91 mg/dL (<150)
[2021-01-12 09:11] LABS: LDL Cholesterol Direct 56 mg/dL
--- NOTE | 2021-01-12 09:58 | PM.PNCARD ---
Progress Note: A&P Assessment and Plan (1) Troponin level elevated: Code(s): R77.8 - Other specified abnormalities of plasma proteins Status: Acute Assessment and Plan: Under likely related ACS. Plan again is to perform outpatient stress test per Dr. Dias (2) CHF exacerbation: Qualifiers: Heart failure type: unspecified Qualified Code(s): I50.9 - Heart failure, unspecified Code(s): I50.9 - Heart failure, unspecified Status: Acute Assessment and Plan: Acute on chronic likely mixed systolic and diastolic congestive heart failure. continue beta-bella, continue her furosemide back to 40 mg IV b.i.d.. She will undergo thoracentesis today. Follow electrolytes (3) CAD (coronary artery disease): Code(s): I25.10 - Atherosclerotic heart disease of [place] coronary artery without angina pectoris Status: Acute Assessment and Plan: Plan is already established for outpatient stress test per Dr. Dias . Continue aspirin, beta-bella, statin (4) C. difficile colitis: Code(s): A04.72 - Enterocolitis due to Clostridium difficile, not specified as recurrent Status: Acute Assessment and Plan: On p.o. vanc (5) Essential hypertension: Code(s): I10 - Essential (primary) hypertension Status: Acute Assessment and Plan: At reasonable goal (6) Aortic stenosis: Code(s): I35.0 - Nonrheumatic aortic (valve) stenosis Status: Acute Assessment and Plan: Moderate Subjective Date/time seen: 01/12/21 09:58 Interval history: 65-year-old admitted for shortness of breath and diarrhea Date of service 01/12/2021: She should more short of breath today. Diffuse edema. No chest pain. Still short of breath and awaiting thoracentesis Review of Systems Review of Systems: All systems reviewed & are unremarkable except as noted in HPI and below Constitutional: Constitutional: Denies fatigue, Denies headache(s) and Reports weakness Eyes: Eyes: Denies blurry vision ENT: Reports Normal hearing present, Denies headache(s) and Denies neck pain Cardiovascular: Cardiovascular: Denies chest pain, Reports dyspnea and Reports dyspnea on exertion Respiratory: Respiratory: Reports dyspnea and Reports dyspnea on exertion Gastrointestinal: Gastrointestinal: Denies abdominal pain and Reports diarrhea Genitourinary: Genitourinary: Denies flank pain Musculoskeletal: Musculoskeletal: Denies myalgias, Denies neck pain and Denies numbness Integumentary/Breasts: Skin/Breast: Reports dry skin Neurologic: Reports Normal hearing present, Denies confusion, Denies headache(s), Denies numbness and Reports weakness Psychiatric: Psychiatric: Denies anxiety and Denies confusion Endocrine: Endocrine: Denies fatigue Hematologic/Lymphatic: Hematologic/Lymphatic: Denies easy bleeding and Denies easy bruising Allergic/Immunologic: Allergic/Immunologic: Denies GI upset with certain foods Exam Narrative: Exam Narrative: Alert oriented appears to be in no acute distress. Appears stated age Const: General: comfortable and no acute distress; No confusion Orientation/consciousness: No confusion HENMT: General nose exam: Normal nares present Eyes: Sclera: sclerae normal Neck: Neck: supple and no JVD Chest: Other: no reproducible chest wall pain to palpation Resp: Auscultation: diminished lung sounds Cardio: Rate: regular rate Rhythm: regular rhythm GI: Inspection: non-distended Skin: General skin exam: normal color Neuro: General: No confusion Cranial nerves: Yes Normal hearing present Cognition (Neuro): normal cognition Speech: normal speech Extrem: General: normal to inspection and edema (1+ bilateral lower extremity edema) Psych: Mental Status: mental status grossly normal Objective Data Vital Signs Vital Signs: Vital Signs - 24 hr 01/11/21 10:52 01/11/21 20:00 01/11/21 20:23 Temperature Pulse Rat
[2021-01-12 10:06] LABS: Creatinine Urine 40.8 mg/dL
[2021-01-12] MEDS: VANCOMYCIN ORAL 125 MG/2.5 ML SYRUP PO ×2 (11:29→21:44)
[2021-01-12] MEDS: MAGNESIUM OXIDE 400 MG TABLET PO ×2 (11:29→17:12)
[2021-01-12] MEDS: ASPIRIN 81 MG ENTERIC TABLET PO (11:29)
[2021-01-12] MEDS: SODIUM BICARBONATE TAB 650 MG TABLET PO ×2 (11:30→17:12)
[2021-01-12] MEDS: FAMOTIDINE 20 MG TABLET PO (11:30)
[2021-01-12] MEDS: SACCHAROMYCES BOULARDII 250 MG CAPSULE PO ×2 (11:30→17:12)
[2021-01-12] MEDS: allopurinoL 100 MG TABLET PO (11:30)
[2021-01-12] MEDS: FERROUS SULFATE 324 MG TABLET PO (11:30)
[2021-01-12] MEDS: ESCITALOPRAM OXALATE 10 MG TABLET PO (11:30)
[2021-01-12 11:42] LABS: pH Pleural Fluid 7.537 (7.210-7.500)
[2021-01-12 12:01] LABS: Appearance Pleural Fluid Clear (Clear); Color Pleural Fluid Yellow (Colorless); Pleural fluid source Pleural fluid
[2021-01-12 12:02] LABS: Lymphocytes Pleural Fluid 72 %; Macrophages Pleural Fluid 1 %; Mesothelial Cells Pleural Flui 19 %; Monocytes Pleural Fluid 2 %; Neutrophils Pleural Fluid 6 % (0-25)
--- NOTE | 2021-01-12 14:00 | PM.CNNEP ---
Assessment and Plan Assessment and plan (1) Proteinuria: Code(s): R80.9 - Proteinuria, unspecified Status: Acute Assessment and Plan: random urine testing demonstrates about 2400mg of proteinuria could be secondary to her previous history of diabetes but HTN, vascular disease, CAD are risk factors as well follow-up on 24 hour urine collection check serological evaluation to r/o autoimmune disease or vasculitis agree with diuresis for now (2) Acute respiratory failure with hypoxia: Code(s): J96.01 - Acute respiratory failure with hypoxia Status: Acute Assessment and Plan: due to #3 and pleural effusions s/p thoracentesis diuresis as tolerated (3) CHF exacerbation: Qualifiers: Heart failure type: unspecified Qualified Code(s): I50.9 - Heart failure, unspecified Code(s): I50.9 - Heart failure, unspecified Status: Acute Assessment and Plan: diuresis follow I/O, daily weights, and respiratory status Cardiology following (4) C. difficile colitis: Code(s): A04.72 - Enterocolitis due to Clostridium difficile, not specified as recurrent Status: Acute Assessment and Plan: on oral vancomycin Will continue to follow. History of Present Illness Reason for Consult Consult date: 01/12/21 Reason for consult: proteinuria Chief Complaint Chief complaint: chf History of Present Illness Narrative: The patient is a 65-year-old female with a past medical history as outlined below who presented from her nursing facility to [facility] Emergency room for shortness of breath. The patient states that her shortness of breath has been present for about a week in association with heart palpitations. She has been at her nursing facility for the purpose of optimization her physical status the physical/occupational therapy and apparently was just discharged from another hospital / facility for a CHF exacerbation. The patient does have an intellectual disability but is a fairly good historian and this was supplemented with her shelter records. Reportedly, in association with her shortness of breath she was hypoxic satting 80% on room air and did have a nonproductive cough. Her COVID-19 testing at her nursing facility was apparently negative. She also has edema that has been present for at least the last week if not longer both in her upper and lower extremities as well. Her oxygen saturations did improve with the application of supplemental oxygen but given these constellation of symptoms, she was sent to the ER for further evaluation and therapy Workup and evaluation emergency room demonstrated the patient to be hemodynamically stable but with evidence of volume overload. Her chest x-ray demonstrated significant pleural effusions and pulmonary vascular congestion under physical exam demonstrated the a for mentioned swelling edema as noted already. I am unclear on the specifics of her previous CHF exacerbation but it seems clear by her evaluation in the ER that she still had a component of volume overload at at the time of her presentation. She was subsequent admitted the hospital for IV diuresis. Since her admission, she has been responding to IV diuretic therapy in terms of her swelling edema both by clinical and physical exam. It was noted on a urinalysis that she had 2+ protein and random urine testing also demonstrated that she had some degree of proteinuria. Cardiology has also been following the patient given her volume overload status with the presumption of congestive heart failure exacerbation as well. She appears to be responding to IV diuretic therapy at this time. Renal consultation was requested due to the a for mentioned proteinuria and the concern that possible nephrotic syndrome may be playing a role with regard to her swelling/edema/anasarca. From review her records, the patient does have some mild renal insufficienc
--- NOTE | 2021-01-12 17:11 | PM.IMPN ---
Progress Note: A&P Assessment and Plan (1) Acute respiratory failure with hypoxia: Code(s): J96.01 - Acute respiratory failure with hypoxia Status: Acute Assessment and Plan: CXR demonstrated pulmonary edema, moderate pleural effusions, and bibasilar opacities. BNP markedly elevated at 24,700. She was initially on 4 liters per nasal cannula and she was weaned to 3 liters per nasal cannula 01/10. Acute hypoxic respiratory failure is most likely secondary to CHF exacerbation. D. Dimer ordered given recent hospitalization and elevated so chest CTA performed and shows no pulmonary embolism but large effusion on right and moderate to large on left with compressive atelectasis. Clinically, she does not appear to have pneumonia and bibasilar opacities are likely consistent with atelectasis. She underwent thoracentesis w/ 1 L removed and was weaned to room air. She is back on 2 liters with good saturation and feels significantly better from a respiratory standpoint. Continue supplemental oxygen as needed to maintain oxygen saturation >90%, wean as tolerated Further plan as outlined below (2) CHF exacerbation: Qualifiers: Heart failure type: unspecified Qualified Code(s): I50.9 - Heart failure, unspecified Code(s): I50.9 - Heart failure, unspecified Status: Acute Assessment and Plan: Supported by CXR findings of pulmonary edema, moderate pleural effusions, and BNP 24,700. She notes increased dyspnea for 1 month, worse in the past week, orthopnea, and increased swelling to extremities. Echocardiogram performed 01/10/21 demonstrates EF 55-60%, grade II diastolic dysfunction. She has excellent urine output with approximately 3 liters output since martinez placed yesterday for accurate I&O. She is improving. Cardiology following and input appreciated Continue IV lasix 40mg BID She is s/p thoracentesis removing 1L today Monitor volume status closely with daily weight and strict intake and output (3) Proteinuria: Code(s): R80.9 - Proteinuria, unspecified Status: Acute Assessment and Plan: Prealbumin low. Urinalysis demonstrates 2+ protein and she has elevated random urine protein. Albumin and protein low on CMP. 24 hr urine protein ordered and pending Nephrology consulted given concern for possible nephrotic component. (4) Generalized edema: Code(s): R60.1 - Generalized edema Status: Acute Assessment and Plan: [place] most likely secondary to CHF however hypoalbuminemia considered as well given diffuse swelling. She is improving with excellent urine output with approx 3 liters since martinez placed yesterday. Continue diuresis CHINTAN hose, leg elevation, arm elevation to help with dependent fluid (5) Pleural effusion: Code(s): J90 - Pleural effusion, not elsewhere classified Status: Acute Assessment and Plan: CTA chest demonstrated large right and moderate to large left pleural effusion with adjacent atelectasis. Likely transudative secondary to fluid overload. She is s/p thoracentesis today with 1 L of fluid removed. pH is 7.537. Preliminary studies appear transudative. Gram stain demonstrates few WBC and no organisms. Continue diuresis Await final pleural studies Plan for repeat CXR tomorrow (6) Troponin level elevated: Code(s): R77.8 - Other specified abnormalities of plasma proteins Status: Acute Assessment and Plan: Troponin was elevated to 0.112 but trend was flat. This is most likely secondary to acute CHF exacerbation and felt unlikely secondary to ACS. Cardiology was consulted with input greatly appreciated. She did have recent NSTEMI during previous hospitalization. Echocardiogram performed 01/10/21 demonstrates hypokinesis of the inferior wall, apical septum, and apical cap. Discussed with cardiology and she will need outpatient Lexiscan stress test with Dr. Dias outpatient once she r
[2021-01-12] MEDS: APIXABAN 2.5 MG TABLET PO (20:48)
[2021-01-12] MEDS: LATANOPROST 0.005% OP SOLN 2.5 ML BTL 1 DROP EACH EYE (20:49)
[2021-01-12] MEDS: ATORVASTATIN 40 MG TABLET 80 MG PO (20:50)
[2021-01-13] VITALS (11 sets, daily range): BP systolic 104–118; BP diastolic 48–53; PULSE 76–83; RESP 20; TEMP 35.8–37.2; O2SAT 86–98
[2021-01-13 06:56] LABS: Hematocrit 29.2 % (37.0-47.0); Mean Corpuscular HGB Conc 30.8 g/dl (32-36); Mean Corpuscular Volume 90.7 fl (80-100); Mean Platelet Volume 8.9 fl (7.4-10.4); Platelet Count Result 265 k/mm3 (150-375); Red Blood Count 3.22 M/mm3 (4.2-5.4); Red Cell Distribution Width 17.9 % (11.5-14.5); White Blood Count 7.5 K/mm3 (4.5-10.0)
[2021-01-13 07:11] LABS: Complement C3 92 mg/dL (88-165)
[2021-01-13 07:12] LABS: Alanine Aminotransferase 19 U/L (4-35); Albumin Level 2.2 g/dL (3.5-5.1); Alkaline Phosphatase 168 U/L (38-126); Anion Gap -2 mmol/L (8-16); Aspartate Amino Transferase 38 U/L (14-36); Bilirubin,Total 0.4 mg/dL (0.2-1.3); Blood Urea Nitrogen 21 mg/dL (7-17); Calcium 7.2 mg/dL (8.4-10.2); Carbon Dioxide 36 mmol/L (22-30); Chloride 103 mmol/L (98-107); Estimated CRCL calculation 48 ml/min; Estimated Glomerular Filt Rate 50; Glucose 94 mg/dL (65-105); Magnesium 1.8 mg/dL (1.6-2.3); Potassium 4.7 mmol/L (3.4-5.0); Sodium 137 mmol/L (137-145)
[2021-01-13] MEDS: VANCOMYCIN ORAL 125 MG/2.5 ML SYRUP PO ×2 (08:10→21:43)
[2021-01-13] MEDS: SACCHAROMYCES BOULARDII 250 MG CAPSULE PO ×2 (08:11→16:56)
[2021-01-13] MEDS: MAGNESIUM OXIDE 400 MG TABLET PO ×2 (08:11→16:55)
[2021-01-13] MEDS: ESCITALOPRAM OXALATE 10 MG TABLET PO (08:11)
[2021-01-13] MEDS: SODIUM BICARBONATE TAB 650 MG TABLET PO ×2 (08:11→16:56)
[2021-01-13] MEDS: FUROSEMIDE INJ 40 MG/4 ML VIAL IV PUSH ×2 (08:11→16:55)
[2021-01-13] MEDS: ASPIRIN 81 MG ENTERIC TABLET PO (08:12)
[2021-01-13] MEDS: FAMOTIDINE 20 MG TABLET PO (08:12)
[2021-01-13] MEDS: FLUTICASONE PROPIONATE 0.05% NA SPR 16 GM BTL (*BKC) 1 SPRAY NASAL (08:12)
[2021-01-13] MEDS: allopurinoL 100 MG TABLET PO (08:12)
[2021-01-13] MEDS: APIXABAN 2.5 MG TABLET PO ×2 (08:12→21:44)
[2021-01-13] MEDS: METOPROLOL TARTRATE 50 MG TAB PO ×2 (08:12→21:35)
[2021-01-13] MEDS: FERROUS SULFATE 324 MG TABLET PO (08:12)
--- NOTE | 2021-01-13 11:56 | PM.PNNEP ---
Progress Note: A&P Assessment and Plan (1) Proteinuria: Code(s): R80.9 - Proteinuria, unspecified Status: Acute Assessment and Plan: random urine testing demonstrates about 2400mg of proteinuria could be secondary to her previous history of diabetes but HTN, vascular disease, CAD are risk factors as well follow-up on 24 hour urine collection check serological evaluation to r/o autoimmune disease or vasculitis agree with diuresis for now (2) Acute respiratory failure with hypoxia: Code(s): J96.01 - Acute respiratory failure with hypoxia Status: Acute Assessment and Plan: due to #3 and pleural effusions s/p thoracentesis diuresis as tolerated (3) CHF exacerbation: Qualifiers: Heart failure type: unspecified Qualified Code(s): I50.9 - Heart failure, unspecified Code(s): I50.9 - Heart failure, unspecified Status: Acute Assessment and Plan: diuresis follow I/O, daily weights, and respiratory status Cardiology following (4) C. difficile colitis: Code(s): A04.72 - Enterocolitis due to Clostridium difficile, not specified as recurrent Status: Acute Assessment and Plan: on oral vancomycin Will continue to follow. Subjective Date/time seen: 01/13/21 11:56 Continues to diuresis reasonably well with improvement in swelling/edema; s/p thoracentesis yesterday and tolerated procedure reasonably well; overall, she states that she is feeling better; Exam Narrative: Exam Narrative: General: WD/WN female in NAD Heart: normal S1 and S2; no rub Lungs: decreased breath sounds Abdomen: soft, nontender, nondistended, positive bowel sounds Extremities: no cyanosis or clubbing; 1+ edema Skin: warm and dry Objective Data Vital Signs Vital Signs: Vital Signs Temp Pulse Resp BP Pulse Ox 01/13/21 09:22 93 01/13/21 08:15 93 01/13/21 08:12 80 01/13/21 08:10 96 01/13/21 05:38 35.8 C L 81 20 118/53 L 96 01/12/21 21:37 36.6 C 74 20 119/48 L 99 01/12/21 20:48 68 01/12/21 14:25 95 01/12/21 14:20 86 L 01/12/21 14:00 36.3 C L 81 20 102/59 L 92 Intake/Output Intake/Output: Intake & Output 01/10/21 01/11/21 01/12/21 01/13/21 23:59 23:59 23:59 23:59 Intake Total 980 2170 730 500 Output Total 170 3850 Balance 980 2000 -3120 500 Meds/Results Medications: Active Medications Generic Name Dose Route Start Last Admin Trade Name Freq PRN Reason Stop Dose Admin Allopurinol 100 mg 01/10/21 09:00 01/13/21 08:12 Allopurinol 100 Mg Tablet PO 100 mg DAILY@0800 IVONE Administration Apixaban 2.5 mg 01/12/21 21:00 01/13/21 08:12 Apixaban 2.5 Mg Tablet PO 2.5 mg Q12HR IVONE Administration Aspirin 81 mg 01/10/21 09:00 01/13/21 08:12 Aspirin 81 Mg Enteric Tablet PO 81 mg DAILY IVONE Administration Atorvastatin Calcium 80 mg 01/10/21 02:15 01/12/21 20:50 Atorvastatin 40 Mg Tablet PO 40 mg HS IVONE Administration Dextrose 12.5 gm 01/10/21 01:56 Dextrose 50% 25 Gm/50 Ml Syringe IV PUSH PRN PRN Hypoglycemia Protocol Escitalopram Oxalate 10 mg 01/10/21 09:00 01/13/21 08:11 Escitalopram Oxalate 10 Mg Tablet PO 10 mg DAILY IVONE Administration Famotidine 20 mg 01/10/21 09:00 01/13/21 08:12 Famotidine 20 Mg Tablet PO 20 mg DAILY IVONE Administration Ferrous Sulfate 324 mg 01/12/21 09:00 01/13/21 08:12 Ferrous Sulfate 324 Mg Tablet PO 324 mg DAILY IVONE Administration Fluticasone Propionate 1 spray 01/10/21 09:00 01/13/21 08:12 Fluticasone Propionate 0.05% Na Spr 16 Gm Btl (*Bkc) NASAL 1 spray DAILY IVONE Administration Furosemide 40 mg 01/11/21 17:00 01/13/21 08:11 Furosemide Inj 40 Mg/4 Ml Vial IV PUSH 40 mg BID IVONE Administration Dextrose 1,000 mls @ 100 mls/hr 01/10/21 01:56 Dextrose 5% 1,000 Ml IVPB PRN PRN Hypoglycemia Protocol Latanop
--- NOTE | 2021-01-13 13:46 | PM.IMPN ---
Progress Note: A&P Assessment and Plan (1) Acute respiratory failure with hypoxia: Code(s): J96.01 - Acute respiratory failure with hypoxia Status: Acute Assessment and Plan: Resolved. CXR demonstrated pulmonary edema, moderate pleural effusions, and bibasilar opacities. BNP markedly elevated at 24,700. She was initially requiring 4 liters per nasal cannula. Acute hypoxic respiratory failure is most likely secondary to CHF exacerbation. D. Dimer ordered given recent hospitalization and elevated so chest CTA was performed and showed pulmonary embolism but large effusion on right and moderate to large on left with compressive atelectasis. She is s/p thoracentesis 01/12/21. Clinically, she does not appear to have pneumonia and bibasilar opacities are likely consistent with atelectasis. She was weaned to room air today and she is tolerating this well. Continue supplemental oxygen as needed to maintain oxygen saturation >90%, wean as tolerated Further plan as outlined below (2) CHF exacerbation: Qualifiers: Heart failure type: unspecified Qualified Code(s): I50.9 - Heart failure, unspecified Code(s): I50.9 - Heart failure, unspecified Status: Acute Assessment and Plan: Supported by CXR findings of pulmonary edema, moderate pleural effusions, and BNP 24,700. She noted increased dyspnea for 1 month, worse in the past week, orthopnea, and increased swelling to extremities. Echocardiogram performed 01/10/21 demonstrated EF 55-60%, grade II diastolic dysfunction. She has excellent urine output with approximately 3 liters output since martinez placed 01/11. She was weaned to room air with edema significantly improved. Cardiology following and input appreciated Continue IV lasix 40mg BID. Plan to consider transition to oral lasix tomorrow. Monitor volume status closely with daily weight and strict intake and output (3) Proteinuria: Code(s): R80.9 - Proteinuria, unspecified Status: Acute Assessment and Plan: Prealbumin low. Urinalysis demonstrates 2+ protein and she has elevated random urine protein. Albumin and protein low on CMP. 24 hr urine protein ordered and pending Nephrology consulted given concern for possible nephrotic component. Serological studies ordered to r/o autoimmune disease or vasculitis. C3 and C4 normal. Additional studies are pending. (4) Generalized edema: Code(s): R60.1 - Generalized edema Status: Acute Assessment and Plan: [place] most likely secondary to CHF however hypoalbuminemia considered as well given diffuse swelling. Much improved on exam today. Continue diuresis CHINTAN hose, leg elevation, arm elevation to help with dependent fluid (5) Pleural effusion: Code(s): J90 - Pleural effusion, not elsewhere classified Status: Acute Assessment and Plan: CTA chest demonstrated large right and moderate to large left pleural effusion with adjacent atelectasis. Likely transudative secondary to fluid overload. She is s/p thoracentesis today with 1 L of fluid removed 01/12/21. pH is 7.537. Preliminary studies appear transudative. Gram stain demonstrates few WBC and no organisms. Improved on CXR today. She was weaned to room air. Preliminary pleural cultures are negative Continue diuresis Await final pleural studies (6) Troponin level elevated: Code(s): R77.8 - Other specified abnormalities of plasma proteins Status: Acute Assessment and Plan: Troponin was elevated to 0.112 but trend was flat. This is most likely secondary to acute CHF exacerbation and felt unlikely secondary to ACS. Cardiology was consulted with input greatly appreciated. She did have recent NSTEMI during previous hospitalization at [facility]. Echocardiogram performed 01/10/21 demonstrates hypokinesis of the inferior wall, apical septum, and apical cap. Discussed with cardiology and she will need outpa
[2021-01-13 14:21] LABS: Total Volume 24 Hour Urine 2400 ml
[2021-01-13 14:28] LABS: Total Protein Urine Random 21 mg/dL
[2021-01-13 16:53] LABS: Total Protein Urine 24 Hr 504 MG/DAY (28-141)
[2021-01-13 18:54] LABS: SARS-CoV-2 RNA PCR Negative
[2021-01-13] MEDS: MELATONIN 5 MG TABLET PO (21:30)
[2021-01-13] MEDS: ATORVASTATIN 40 MG TABLET 80 MG PO (21:35)
[2021-01-13] MEDS: LATANOPROST 0.005% OP SOLN 2.5 ML BTL 1 DROP EACH EYE (21:36)
[2021-01-14] VITALS (8 sets, daily range): BP systolic 111–128; BP diastolic 50–81; PULSE 76–105; RESP 16–20; TEMP 36.1–36.6; O2SAT 92–94
--- NOTE | 2021-01-14 05:36 | PC.NURSE ---
Daylight Savings Time For Daylight Savings Time Ending in the Fall - Clocks are moved back. For Daylight Savings Time Beginning in the Spring - Clocks are moved ahead. For [facility], the time of change occurs at 0200 hrs. Time is taken from the server assistant. This entry on the patient's chart recognizes the change in time reflected during documentation. Example: 2 entries for vital signs may be charted for 0200 hrs.
[2021-01-14 06:33] LABS: Potassium 4.4 mmol/L (3.4-5.0)
[2021-01-14 06:38] LABS: Anion Gap -1 mmol/L (8-16); Blood Urea Nitrogen 20 mg/dL (7-17); Calcium 7.2 mg/dL (8.4-10.2); Carbon Dioxide 35 mmol/L (22-30); Chloride 103 mmol/L (98-107); Estimated CRCL calculation 41 ml/min; Estimated Glomerular Filt Rate 41; Glucose 93 mg/dL (65-105); Magnesium 1.8 mg/dL (1.6-2.3); Sodium 137 mmol/L (137-145)
[2021-01-14 06:45] LABS: Basophils Percent Auto 0.6 % (0.2-1.2); Eosinophils Absolute Auto 0.2 K/mm3 (0-0.3); Eosinophils Percent Auto 3.1 % (0-4.4); Hematocrit 27.4 % (37.0-47.0); Hemoglobin 8.5 g/dL (12.0-15.0); Immature Granulocyte Absolute 0.04 K/mm3 (0.00-0.031); Immature Granulocyte Percent A 0.6 % (0-0.5); Lymphocytes Absolute Auto 1.02 K/mm3 (0.9-3.2); Lymphocytes Percent Auto 14.5 % (18.3-44.2); Mean Corpuscular Hemoglobin 28.6 pg (26-34); Mean Corpuscular Volume 92.3 fl (80-100); Monocytes Absolute Auto 0.8 K/mm3 (0.1-0.6); Monocytes Percent Auto 10.7 % (2.6-8.5); Neutrophils Percent Auto 70.5 % (45.5-73.1); Platelet Count Result 239 k/mm3 (150-375); Red Blood Count 2.97 M/mm3 (4.2-5.4); Red Cell Distribution Width 17.9 % (11.5-14.5)
[2021-01-14] MEDS: allopurinoL 100 MG TABLET PO (10:05)
[2021-01-14] MEDS: ASPIRIN 81 MG ENTERIC TABLET PO (10:06)
[2021-01-14] MEDS: APIXABAN 2.5 MG TABLET PO (10:06)
[2021-01-14] MEDS: FAMOTIDINE 20 MG TABLET PO (10:07)
[2021-01-14] MEDS: ESCITALOPRAM OXALATE 10 MG TABLET PO (10:07)
[2021-01-14] MEDS: FERROUS SULFATE 324 MG TABLET PO (10:10)
[2021-01-14] MEDS: FLUTICASONE PROPIONATE 0.05% NA SPR 16 GM BTL (*BKC) 1 SPRAY NASAL (10:10)
[2021-01-14] MEDS: MAGNESIUM OXIDE 400 MG TABLET PO ×2 (10:11→17:17)
[2021-01-14] MEDS: METOPROLOL TARTRATE 50 MG TAB PO ×2 (10:12→20:18)
[2021-01-14] MEDS: SACCHAROMYCES BOULARDII 250 MG CAPSULE PO ×2 (10:12→17:16)
[2021-01-14] MEDS: SODIUM BICARBONATE TAB 650 MG TABLET PO ×2 (10:12→17:16)
[2021-01-14] MEDS: TOLNAFTATE 1% POWDER 45 GM BTL 1 APPLIC TOPICAL ×2 (10:12→20:19)
[2021-01-14] MEDS: VANCOMYCIN ORAL 125 MG/2.5 ML SYRUP PO ×2 (10:13→20:58)
[2021-01-14] MEDS: FUROSEMIDE 40 MG TABLET PO (10:13)
--- NOTE | 2021-01-14 10:21 | PM.PNCARD ---
Progress Note: A&P Assessment and Plan (1) CHF exacerbation: Qualifiers: Heart failure type: unspecified Qualified Code(s): I50.9 - Heart failure, unspecified Code(s): I50.9 - Heart failure, unspecified Status: Acute Assessment and Plan: Heart failure with preserved ejection fraction, acute now improving. Simple outpatient diuretic regimen Bumex 1 mg daily or Lasix 40 mg p.o. daily. Creatinine increased to 1.3. Monitor urine output and renal function. EF preserved by echocardiogram 55-60%. She will follow-up with her motor overhauler as an outpatient. (2) CAD (coronary artery disease): Code(s): I25.10 - Atherosclerotic heart disease of [place] coronary artery without angina pectoris Status: Acute Assessment and Plan: Patient is established with Dr. Dias (Cardiology). Patient to adhere to previous planned to obtain outpatient ischemic evaluation with her motor overhauler. Continue aggressive risk modification and medical therapy. Continue aspirin, statin, LV function preserved (3) Paroxysmal atrial fibrillation: Code(s): I48.0 - Paroxysmal atrial fibrillation Status: Acute Assessment and Plan: Maintaining sinus rhythm. She is currently on Apixaban 2.5 mg twice daily, however, the appropriate dose for her age and renal function is 5 mg twice daily. However, given decline in H&H further attention and monitoring warranted for trend. If no concern for active bleed adjust Apixaban accordingly. This places pt at increased CVA risk with A.Fib so dose change advised. (4) Troponin level elevated: Code(s): R77.8 - Other specified abnormalities of plasma proteins Status: Acute Assessment and Plan: Downward trending, no angina. As above. (5) Anemia: Code(s): D64.9 - Anemia, unspecified Status: Acute Assessment and Plan: H&H continues to decline from 10.1-8.5 over the past week. (6) C. difficile colitis: Code(s): A04.72 - Enterocolitis due to Clostridium difficile, not specified as recurrent Status: Acute Assessment and Plan: Per primary service. Subjective Date/time seen: Date of service: 01/14/21 10:21 Interval history: 65-year-old admitted for CHF and C colitis with diarrhea Patient denies chest pain. Breathing improved but not at baseline. Still short of breath with activity. No nausea, bleeding. No palpitations. No fevers or chills. Still notes ongoing diarrhea. Inquired if she would need a stent. Advised best plan would be follow-up as recommended by her motor overhauler for outpatient stress test. Patient agreed. Review of Systems Review of Systems: All systems reviewed & are unremarkable except as noted in HPI and below Constitutional: Constitutional: Denies fatigue, Denies headache(s) and Reports weakness Eyes: Eyes: Denies blurry vision ENT: Reports Normal hearing present, Denies headache(s) and Denies neck pain Cardiovascular: Cardiovascular: Denies chest pain, Reports dyspnea and Reports dyspnea on exertion Respiratory: Respiratory: Reports dyspnea and Reports dyspnea on exertion Gastrointestinal: Gastrointestinal: Denies abdominal pain and Reports diarrhea Genitourinary: Genitourinary: Denies flank pain Musculoskeletal: Musculoskeletal: Denies myalgias, Denies neck pain and Denies numbness Integumentary/Breasts: Skin/Breast: Reports dry skin Neurologic: Reports Normal hearing present, Denies confusion, Denies headache(s), Denies numbness and Reports weakness Psychiatric: Psychiatric: Denies anxiety and Denies confusion Endocrine: Endocrine: Denies fatigue Hematologic/Lymphatic: Hematologic/Lymphatic: Denies easy bleeding and Denies easy bruising Allergic/Immunologic: Allergic/Immunologic: Denies GI upset with certain foods Exam Narrative: Exam Narrative: Alert oriented appears to be in no acute distress. Appears stated age Const: General: comfortable and no acute distre
--- NOTE | 2021-01-14 10:41 | PCRCNOTE ---
01/13/21 1525 HOME O2 EVALUATION. PT REQUIRES 1L AT REST.
--- NOTE | 2021-01-14 11:21 | PM.IMPN ---
Progress Note: A&P Assessment and Plan (1) Acute respiratory failure with hypoxia: Code(s): J96.01 - Acute respiratory failure with hypoxia Status: Acute Assessment and Plan: CXR demonstrated pulmonary edema, moderate pleural effusions, and bibasilar opacities. BNP markedly elevated at 24,700. She was initially requiring 4 liters per nasal cannula. Acute hypoxic respiratory failure is most likely secondary to CHF exacerbation. D. Dimer ordered given recent hospitalization and elevated so chest CTA was performed and showed pulmonary embolism but large effusion on right and moderate to large on left with compressive atelectasis. She is s/p thoracentesis 01/12/21. Clinically, she does not appear to have pneumonia and bibasilar opacities are likely consistent with atelectasis. She was weaned to room air yesterday. She is currently on 1 liter per nasal cannula. Continue supplemental oxygen as needed to maintain oxygen saturation >90%, wean as tolerated Further plan as outlined below Noted by RN that she seems to desaturate when sleeping but she is maintain adequate oxygen saturation while awake. Will order apnea link for [facility] to assess nocturnal oxygen needs and screen for LISETTE. (2) CHF exacerbation: Qualifiers: Heart failure type: unspecified Qualified Code(s): I50.9 - Heart failure, unspecified Code(s): I50.9 - Heart failure, unspecified Status: Acute Assessment and Plan: Supported by CXR findings of pulmonary edema, moderate pleural effusions, and BNP 24,700. She noted increased dyspnea for 1 month, worse in the past week, orthopnea, and increased swelling to extremities. Echocardiogram performed 01/10/21 demonstrated EF 55-60%, grade II diastolic dysfunction. She has responded favorably to diuresis. She was on room air yesterday and placed on 1 liter today however I cannot find documentation of hypoxia today. Cardiology following and input appreciated Continue lasix, switch to furosemide 40mg QD Monitor volume status closely with daily weight and strict intake and output (3) Proteinuria: Code(s): R80.9 - Proteinuria, unspecified Status: Acute Assessment and Plan: Prealbumin low. Urinalysis demonstrates 2+ protein and she has elevated random urine protein. Albumin and protein low on CMP. 24 hour urine protein 504. Nephrology consulted given concern for possible nephrotic component. Serological studies ordered to r/o autoimmune disease or vasculitis. C3 and C4 normal. Additional studies are pending. Appreciate nephrology input, await further nephrology recommendations (4) Generalized edema: Code(s): R60.1 - Generalized edema Status: Acute Assessment and Plan: Significantly improved. [place] most likely secondary to CHF however hypoalbuminemia considered as well given diffuse swelling. Much improved on exam today. Continue diuresis CHINTAN hose, leg elevation, arm elevation to help with dependent fluid (5) Pleural effusion: Code(s): J90 - Pleural effusion, not elsewhere classified Status: Acute Assessment and Plan: CTA chest demonstrated large right and moderate to large left pleural effusion with adjacent atelectasis. Likely transudative secondary to fluid overload. She is s/p thoracentesis with 1 L of fluid removed 01/12/21. pH is 7.537. Preliminary studies appear transudative. Gram stain demonstrates few WBC and no organisms. Improved on CXR today. She was weaned to room air. Preliminary pleural cultures are negative Continue diuresis Await final pleural studies (6) Troponin level elevated: Code(s): R77.8 - Other specified abnormalities of plasma proteins Status: Acute Assessment and Plan: Troponin was elevated to 0.112 but trend was flat. This is most likely secondary to acute CHF exacerbation and not acute coronary syndrome. She will need outpatient ischemic evaluation [facility]
--- NOTE | 2021-01-14 12:58 | PM.PNNEP ---
Progress Note: A&P Assessment and Plan (1) Proteinuria: Code(s): R80.9 - Proteinuria, unspecified Status: Acute Assessment and Plan: random urine testing demonstrates about 2400mg of proteinuria could be secondary to her history of diabetes but her HTN, vascular disease, CAD are risk factors as well follow-up on 24 hour urine collection checking serological evaluation to r/o autoimmune disease or vasculitis (she does have psoriatic arthritis) agree with diuresis as tolerated (2) Stage 3a chronic kidney disease: Code(s): N18.31 - Chronic kidney disease, stage 3a Status: Chronic Assessment and Plan: baseline creatinine around 1.0 - 1.1mg/dl presumably due to cardiac/vascular disease and diabetes creatinine up a bit likely due to ongoing diuresis (3) Acute respiratory failure with hypoxia: Code(s): J96.01 - Acute respiratory failure with hypoxia Status: Acute Assessment and Plan: due to #4 and pleural effusions s/p thoracentesis diuresis as tolerated (4) CHF exacerbation: Qualifiers: Heart failure type: unspecified Qualified Code(s): I50.9 - Heart failure, unspecified Code(s): I50.9 - Heart failure, unspecified Status: Acute Assessment and Plan: diuresis follow I/O, daily weights, and respiratory status Cardiology following (5) C. difficile colitis: Code(s): A04.72 - Enterocolitis due to Clostridium difficile, not specified as recurrent Status: Acute Assessment and Plan: on oral vancomycin Will continue to follow. Subjective Date/time seen: 01/14/21 12:58 She seems to be doing reasonably well at the time of my visit - breathing has significantly improved as has swelling/edema; able to lay flat in bed without any shortness of breath; reasonable urine output with diuretic therapy; no apparent distress voiced currently. Exam Narrative: Exam Narrative: General: WD/WN female in NAD Heart: normal S1 and S2; no rub Lungs: decreased breath sounds at bases Abdomen: soft, nontender, nondistended, positive bowel sounds Extremities: no cyanosis or clubbing; trace edema Skin: warm and intact Objective Data Vital Signs Vital Signs: Vital Signs Temp Pulse Resp BP Pulse Ox 01/14/21 14:00 36.6 C 105 H 18 111/50 L 94 01/14/21 08:52 93 01/14/21 08:00 76 20 93 01/14/21 05:39 36.6 C 76 20 124/81 93 01/13/21 21:38 37.2 C 83 20 107/48 L 98 01/13/21 21:35 76 91 01/13/21 15:30 79 93 01/13/21 15:25 76 86 L Intake/Output Intake/Output: Intake & Output 01/11/21 01/12/21 01/13/21 01/15/21 23:59 23:59 23:59 00:59 Intake Total 2170 730 1300 1230 Output Total 170 3850 950 1450 Balance 1999 350 -220 Meds/Results Medications: Active Medications Generic Name Dose Route Start Last Admin Trade Name Freq PRN Reason Stop Dose Admin Allopurinol 100 mg 01/10/21 09:00 01/14/21 10:05 Allopurinol 100 Mg Tablet PO 100 mg DAILY@0800 IVONE Administration Apixaban 2.5 mg 01/12/21 21:00 01/14/21 10:06 Apixaban 2.5 Mg Tablet PO 2.5 mg Q12HR IVONE Administration Aspirin 81 mg 01/10/21 09:00 01/14/21 10:06 Aspirin 81 Mg Enteric Tablet PO 81 mg DAILY IVONE Administration Atorvastatin Calcium 80 mg 01/10/21 02:15 01/13/21 21:35 Atorvastatin 40 Mg Tablet PO 80 mg HS IVONE Administration Dextrose 12.5 gm 01/10/21 01:56 Dextrose 50% 25 Gm/50 Ml Syringe IV PUSH PRN PRN Hypoglycemia Protocol Escitalopram Oxalate 10 mg 01/10/21 09:00 01/14/21 10:07 Escitalopram Oxalate 10 Mg Tablet PO 10 mg DAILY IVONE Administration Famotidine 20 mg 01/10/21 09:00 01/14/21 10:07 Famotidine 20 Mg Tablet PO 20 mg DAILY IVONE Administration Ferrous Sulfate 324 mg 01/12/21 09:00 01/14/21 10:10 Ferrous Sulfate 324 Mg Tablet PO 324 mg DAILY IVONE Administration Fluticasone Propionat
--- NOTE | 2021-01-14 12:58 | P.PNNP_ITS ---
Progress Note: A&P Assessment and Plan (1) Proteinuria: Code(s): R80.9 - Proteinuria, unspecified Status: Acute Assessment and Plan: * random urine testing demonstrates about 2400mg of proteinuria * could be secondary to her history of diabetes but her HTN, vascular disease, CAD are risk factors as well * follow-up on 24 hour urine collection * checking serological evaluation to r/o autoimmune disease or vasculitis (she does have psoriatic arthritis) * agree with diuresis as tolerated (2) Stage 3a chronic kidney disease: Code(s): N18.31 - Chronic kidney disease, stage 3a Status: Chronic Assessment and Plan: * baseline creatinine around 1.0 - 1.1mg/dl * presumably due to cardiac/vascular disease and diabetes * creatinine up a bit likely due to ongoing diuresis (3) Acute respiratory failure with hypoxia: Code(s): J96.01 - Acute respiratory failure with hypoxia Status: Acute Assessment and Plan: * due to #4 and pleural effusions * s/p thoracentesis * diuresis as tolerated (4) CHF exacerbation: Qualifiers: Heart failure type: unspecified Qualified Code(s): I50.9 - Heart failu re, unspecified Code(s): I50.9 - Heart failure, unspecified Status: Acute Assessment and Plan: * diuresis * follow I/O, daily weights, and respiratory status * Cardiology following (5) C. difficile colitis: Code(s): A04.72 - Enterocolitis due to Clostridium difficile, not specified as recurrent Status: Acute Assessment and Plan: * on oral vancomycin Will continue to follow. Subjective Date/time seen: 01/14/21 12:58 She seems to be doing reasonably well at the time of my visit - breathing has significantly improved as has swelling/edema; able to lay flat in bed without any shortness of breath; reasonable urine output with diuretic therapy; no apparent distress voiced currently. Exam Narrative: Exam Narrative: General: WD/WN female in NAD Heart: normal S1 and S2; no rub Lungs: decreased breath sounds at bases Abdomen: soft, nontender, nondistended, positive bowel sounds Extremities: no cyanosis or clubbing; trace edema Skin: warm and intact Objective Data Vital Signs Vital Signs: Vital Signs Temp Pulse Resp BP Pulse Ox 01/14/21 14:00 36.6 C 105 H 18 111/50 L 94 01/14/21 08:52 93 01/14/21 08:00 76 20 93 01/14/21 05:39 36.6 C 76 20 124/81 93 01/13/21 21:38 37.2 C 83 20 107/48 L 98 01/13/21 21:35 76 91 01/13/21 15:30 79 93 01/13/21 15:25 76 86 L Intake/Output Intake/Output: Intake & Output 01/11/21 01/12/21 01/13/21 01/15/21 23:59 23:59 23:59 00:59 Intake Total 2170 730 1300 1230 Output Total 170 3850 950 1450 Balance 1999 -3120 350 -220 Meds/Results Medications: Active Medications Generic Name Dose Route Start Last Admin Trade Name Pelon PRN Reason Stop Dose Admin Allopurinol 100 mg 01/10/21 09:00 01/14/21 10:05 Allopurinol 100 Mg Tablet PO 100 mg DAILY@0800 IVONE Administration Apixaban 2.5 mg 01/12/21 21:00 01/14/21 10:06 Apixaban 2.5 Mg Tablet PO 2.5 mg Q12HR IVONE Administration Aspirin 81 mg 01/10/21 09:00 01/14/21 10:06 Asp
[2021-01-14] MEDS: APIXABAN 5 MG TABLET PO (20:15)
[2021-01-14] MEDS: LATANOPROST 0.005% OP SOLN 2.5 ML BTL 1 DROP EACH EYE (20:16)
[2021-01-14] MEDS: ATORVASTATIN 40 MG TABLET 80 MG PO (20:16)
[2021-01-14 21:22] LABS: Glucose Pleural Fluid 93 mg/dL; LDH Pleural Fluid 44 U/L; Total Protein Pleural Fluid <3.0 g/dL
[2021-01-15] VITALS (7 sets, daily range): BP systolic 126–144; BP diastolic 63–72; PULSE 70–82; RESP 18–20; TEMP 36.1–37.1; O2SAT 90–92
[2021-01-15 06:03] LABS: Hematocrit 28.8 % (37.0-47.0); Mean Corpuscular HGB Conc 31.3 g/dl (32-36); Mean Corpuscular Hemoglobin 28.6 pg (26-34); Mean Corpuscular Volume 91.4 fl (80-100); Mean Platelet Volume 9.1 fl (7.4-10.4); Platelet Count Result 248 k/mm3 (150-375); Red Blood Count 3.15 M/mm3 (4.2-5.4); Red Cell Distribution Width 17.5 % (11.5-14.5); White Blood Count 6.8 K/mm3 (4.5-10.0)
[2021-01-15 06:21] LABS: Anion Gap -2 mmol/L (8-16); Blood Urea Nitrogen 22 mg/dL (7-17); Calcium 7.3 mg/dL (8.4-10.2); Carbon Dioxide 33 mmol/L (22-30); Chloride 103 mmol/L (98-107); Estimated CRCL calculation 41 ml/min; Estimated Glomerular Filt Rate 41; Glucose 109 mg/dL (65-105); Magnesium 1.8 mg/dL (1.6-2.3); Potassium 4.6 mmol/L (3.4-5.0); Sodium 134 mmol/L (137-145)
[2021-01-15 06:50] LABS: Iron 36 ug/dL (37-170)
[2021-01-15 07:00] LABS: Percent Iron Saturation 20 % (20-50)
--- NOTE | 2021-01-15 08:18 | PM.PNNEP ---
Progress Note: A&P Additional Plan Proteinuria: random urine testing demonstrates about 2400mg of proteinuria 24hour urine shows only 504 mg of protein per day. This is an unlikely source of swelling. could be secondary to her history of diabetes, HTN, vascular disease checking serological evaluation to r/o autoimmune disease or vasculitis (she does have psoriatic arthritis) agree with diuresis as tolerated (2) Stage 3a chronic kidney disease: baseline creatinine around 1.0 - 1.1mg/dl presumably due to hypertension, cardiac/vascular disease and diabetes creatinine up to 1.3 a bit likely due to ongoing diuresis (3) Acute respiratory failure with hypoxia: due to #4 and pleural effusions s/p thoracentesis She feels much better since then. diuresis as tolerated. She is on furosemide 40 mg per day (4) CHF exacerbation: Chest x-ray showed pulmonary edema on the . Continue diuresis follow I/O, daily weights, and respiratory status Cardiology following (5) C. difficile colitis: on oral vancomycin Subjective Date/time seen: 01/15/21 08:18 Interval history: Patient feels okay. She says her swelling is better. She denies shortness of breath. Exam Narrative: Exam Narrative: General: WD/WN female in NAD Heart: normal S1 and S2; no rub or gallop Lungs: decreased breath sounds at bases Abdomen: soft, nontender, nondistended, positive bowel sounds Extremities: no cyanosis or clubbing; she has Omi hose on, not much edema under those, about 1+ above the Omi hose. Skin: warm and intact Objective Data Vital Signs Vital Signs: Vital Signs - 24 hr 01/14/21 08:52 01/14/21 14:00 01/14/21 20:00 Temperature 36.6 C Pulse Rate 105 H 80 Respiratory Rate 18 16 Blood Pressure 111/50 L Pulse Oximetry 93 94 92 01/14/21 20:18 01/14/21 22:00 01/14/21 22:34 Temperature 36.1 C L Pulse Rate 105 H 80 Respiratory Rate 16 Blood Pressure 128/52 L Pulse Oximetry 92 92 01/15/21 06:00 Temperature 36.6 C Pulse Rate 73 Respiratory Rate 18 Blood Pressure 132/63 Pulse Oximetry 92 Intake/Output Intake/Output: Intake & Output 01/12/21 01/13/21 01/14/21 01/15/21 22:59 22:59 23:59 23:59 Intake Total 250 Output Total 900 Balance -650 Meds/Results Medications: Active Medications Generic Name Dose Route Start Last Admin Trade Name Freq PRN Reason Stop Dose Admin Allopurinol 100 mg 01/10/21 09:00 01/14/21 10:05 Allopurinol 100 Mg Tablet PO 100 mg DAILY@0800 IVONE Administration Apixaban 5 mg 01/14/21 21:00 01/14/21 20:15 Apixaban 5 Mg Tablet PO 5 mg Q12HR IVONE Administration Aspirin 81 mg 01/10/21 09:00 01/14/21 10:06 Aspirin 81 Mg Enteric Tablet PO 81 mg DAILY IVONE Administration Atorvastatin Calcium 80 mg 01/10/21 02:15 01/14/21 20:16 Atorvastatin 40 Mg Tablet PO 80 mg HS IVONE Administration Dextrose 12.5 gm 01/10/21 01:56 Dextrose 50% 25 Gm/50 Ml Syringe IV PUSH PRN PRN Hypoglycemia Protocol Escitalopram Oxalate 10 mg 01/10/21 09:00 01/14/21 10:07 Escitalopram Oxalate 10 Mg Tablet PO 10 mg DAILY IVONE Administration Famotidine 20 mg 01/10/21 09:00 01/14/21 10:07 Famotidine 20 Mg Tablet PO 20 mg DAILY IVONE Administration Ferrous Sulfate 324 mg 01/12/21 09:00 01/14/21 10:10 Ferrous Sulfate 324 Mg Tablet PO 324 mg DAILY IVONE Administration Fluticasone Propionate 1 spray 01/10/21 09:00 01/14/21 10:10 Fluticasone Propionate 0.05% Na Spr 16 Gm Btl (*Bkc) NASAL 1 spray DAILY IVONE Administration Furosemide 40 mg 01/14/21 09:00 01/14/21 10:13 Furosemide 40 Mg Tablet PO 40 mg DAILY IVONE Administration Dextrose 1,000 mls @ 100 mls/hr 01/10/21 01:56 Dextrose 5% 1,000 Ml IVPB PRN PRN Hypoglycemia Protocol Latanoprost 1 drop 01/10/21 02:20 01/14/21 20:16 Latanoprost 0.005% Op Soln 2.5 Ml Btl EACH EYE 02/09/21 02:21 1
[2021-01-15] MEDS: ONDANSETRON INJ 4 MG/2 ML VIAL IV PUSH ×3 (10:05→20:52)
[2021-01-15] MEDS: SODIUM BICARBONATE TAB 650 MG TABLET PO ×2 (10:56→16:59)
[2021-01-15] MEDS: METOPROLOL TARTRATE 50 MG TAB PO ×2 (10:56→20:53)
[2021-01-15] MEDS: ESCITALOPRAM OXALATE 10 MG TABLET PO (10:56)
[2021-01-15] MEDS: allopurinoL 100 MG TABLET PO (10:57)
[2021-01-15] MEDS: FUROSEMIDE 40 MG TABLET PO (10:58)
[2021-01-15] MEDS: FAMOTIDINE 20 MG TABLET PO (10:59)
[2021-01-15] MEDS: TOLNAFTATE 1% POWDER 45 GM BTL 1 APPLIC TOPICAL ×2 (10:59→21:10)
[2021-01-15] MEDS: FLUTICASONE PROPIONATE 0.05% NA SPR 16 GM BTL (*BKC) 1 SPRAY NASAL (10:59)
[2021-01-15] MEDS: MAGNESIUM OXIDE 400 MG TABLET PO ×2 (11:29→16:59)
[2021-01-15] MEDS: APIXABAN 5 MG TABLET PO ×2 (11:29→20:53)
[2021-01-15] MEDS: FERROUS SULFATE 324 MG TABLET PO (11:29)
[2021-01-15] MEDS: VANCOMYCIN ORAL 125 MG/2.5 ML SYRUP PO ×2 (11:29→20:59)
[2021-01-15] MEDS: SACCHAROMYCES BOULARDII 250 MG CAPSULE PO ×2 (11:29→16:59)
[2021-01-15] MEDS: ASPIRIN 81 MG ENTERIC TABLET PO (11:29)
--- NOTE | 2021-01-15 12:40 | PM.PNCARD ---
Progress Note: A&P Additional Plan 65-year-old lady with: History of coronary artery disease. Recent hospitalization elsewhere with Clostridium difficile colitis. Admitted here with some shortness of breath and volume overload. Patient by exam today is euvolemic. She is back on oral furosemide. No cardiac recommendations today. Nausea being addressed per the primary team. 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 As such follow-up in our office will not be arranged Alexander Andres MD [facility] Subjective Date/time seen: Date of service: 01/15/21 12:40 Interval history: 65-year-old admitted for CHF and C colitis with diarrhea 01/15/2021: Patient reports no further troubles with shortness of breath. For some reason she is nauseated this morning. Has received some antiemetic treatment so far without any benefit. Denies any cardiac symptoms of any kind Exam Narrative: Exam Narrative: Alert oriented appears to be in no acute distress. Appears stated age Const: General: comfortable and no acute distress; No confusion Orientation/consciousness: No confusion HENMT: General nose exam: Normal nares present Eyes: Sclera: sclerae normal Neck: Neck: supple and no JVD Chest: Other: no reproducible chest wall pain to palpation Resp: Auscultation: diminished lung sounds Cardio: Rate: regular rate Rhythm: regular rhythm GI: Inspection: non-distended Skin: General skin exam: normal color Neuro: General: No confusion Cranial nerves: Yes Normal hearing present Cognition (Neuro): normal cognition Speech: normal speech Extrem: General: normal to inspection and edema (Lower extremity edema has resolved completely) Psych: Mental Status: mental status grossly normal Objective Data Vital Signs Vital Signs: Vital Signs - 24 hr 01/14/21 14:00 01/14/21 20:00 01/14/21 20:18 Temperature 36.6 C Pulse Rate 105 H 80 105 H Respiratory Rate 18 16 Blood Pressure 111/50 L Pulse Oximetry 94 92 01/14/21 22:00 01/14/21 22:34 01/15/21 06:00 Temperature 36.1 C L 36.6 C Pulse Rate 80 73 Respiratory Rate 16 18 Blood Pressure 128/52 L 132/63 Pulse Oximetry 92 92 92 01/15/21 10:20 01/15/21 10:56 Temperature Pulse Rate 79 Respiratory Rate Blood Pressure Pulse Oximetry 91 Intake/Output Intake/Output: Intake & Output 01/12/21 01/13/21 01/14/21 01/15/21 22:59 22:59 23:59 23:59 Intake Total 370 Output Total 900 Balance -530 Meds/Results Medications: Active Medications Generic Name Dose Route Start Last Admin Trade Name Freq PRN Reason Stop Dose Admin Allopurinol 100 mg 01/10/21 09:00 01/15/21 10:57 Allopurinol 100 Mg Tablet PO 100 mg DAILY@0800 IVONE Administration Apixaban 5 mg 01/14/21 21:00 01/15/21 11:29 Apixaban 5 Mg Tablet PO 5 mg Q12HR IVONE Administration Aspirin 81 mg 01/10/21 09:00 01/15/21 11:29 Aspirin 81 Mg Enteric Tablet PO 81 mg DAILY IVONE Administration Atorvastatin Calcium 80 mg 01/10/21 02:15 01/14/21 20:16 Atorvastatin 40 Mg Tablet PO 80 mg HS IVONE Administration Dextrose 12.5 gm 01/10/21 01:56 Dextrose 50% 25 Gm/50 Ml Syringe IV PUSH PRN PRN Hypoglycemia Protocol Escitalopram Oxalate 10 mg 01/10/21 09:00 01/15/21 10:56 Escitalopram Oxalate 10 Mg Tablet PO 10 mg DAILY IVONE Administration Famotidine 20 mg 01/10/21 09:00 01/15/21 10:59 Famotidine 20 Mg Tablet PO 20 mg DAILY IVONE Administration Ferrous Sulfate 324 mg 01/12/21 09:00 01/15/21 11:29 Ferrous Sulfate 324 Mg Tablet PO 324 mg DAILY IVONE Administration Fluticasone Propionate 1 spray 01/10/21 09:00 01/15/21 10:59 Fluticasone Propionate 0.05% Na Spr 16 Gm Btl (*Bkc) NASAL 1 spray DAILY IVONE Administration Furosemide 40 mg 01/14/21 09:00 01/15/21 10:58 Furosemide 40 Mg Tablet PO 40 mg DAILY IVONE Administration Dextros
--- NOTE | 2021-01-15 13:52 | PCOTNOTE ---
Attempted to see patient, upon introducing myself and being from OT, patient began shaking her head, teary-eyed, and stated, No, no, no - I'm not doing that today. Patient reporting she feels nauseated and is vomiting and declined OT today. Will continue plan of care tomorrow, 01/16/2021.
--- NOTE | 2021-01-15 14:55 | PCPTNOTE ---
Patient refused treatment this session due to nausea. PT will continue to follow per plan of care.
--- NOTE | 2021-01-15 15:49 | PM.IMPN ---
Progress Note: A&P Assessment and Plan (1) Acute respiratory failure with hypoxia: Code(s): J96.01 - Acute respiratory failure with hypoxia Status: Resolved Assessment and Plan: Resolved. CXR demonstrated pulmonary edema, moderate pleural effusions, and bibasilar opacities. BNP markedly elevated at 24,700. She was initially requiring 4 liters per nasal cannula. Acute hypoxic respiratory failure is most likely secondary to CHF exacerbation. D. Dimer ordered given recent hospitalization and elevated so chest CTA was performed and showed pulmonary embolism but large effusion on right and moderate to large on left with compressive atelectasis. She is s/p thoracentesis 01/12/21. Clinically, she does not appear to have pneumonia and bibasilar opacities are likely consistent with atelectasis. She is on room air today. Continue supplemental oxygen as needed to maintain oxygen saturation >90%, wean as tolerated Further plan as outlined below (2) CHF exacerbation: Qualifiers: Heart failure type: unspecified Qualified Code(s): I50.9 - Heart failure, unspecified Code(s): I50.9 - Heart failure, unspecified Status: Acute Assessment and Plan: Supported by CXR findings of pulmonary edema, moderate pleural effusions, and BNP 24,700. She noted increased dyspnea for 1 month, worse in the past week, orthopnea, and increased swelling to extremities. Echocardiogram performed 01/10/21 demonstrated EF 55-60%, grade II diastolic dysfunction. She has responded favorably to diuresis. She is on room air and doing well from this standpoint. Cardiology following and input appreciated Continue lasix 40mg daily (she was on bumetanide 0.5 and furosemide 20 prior to admission but will plan to simplify this) Monitor volume status closely with daily weight and strict intake and output (3) Constipation: Code(s): K59.00 - Constipation, unspecified Status: Acute Assessment and Plan: Plain films of the abdomen demonstrate moderate to large amount of colonic stool and gas with possible constipation vs fecal impaction. She has had small, soft stools daily and she is on vancomycin taper due to C. diff colitis in Dec 2020. I discussed that we could try digital disimpaction but she would prefer to avoid this if possible and wants to try a suppository first Add stool softener and miralax as needed Monitor clinically and consider further imaging with CT abd/pelvis if she does not improve with bowel movement (4) Nausea: Code(s): R11.0 - Nausea Status: Acute Assessment and Plan: With associated lower abdominal cramping and bloating. Likely secondary to constipation. Plan for constipation as above Continue antiemetic as needed (5) Nocturnal hypoxia: Code(s): G47.34 - Idiopathic sleep related nonobstructive alveolar hypoventilation Status: Acute Assessment and Plan: Noted by RN that she seems to desaturate when sleeping but she maintains adequate oxygen saturation while awake. Apnea link ordered to assess nocturnal oxygen needs and screen for LISETTE. Apnea link demonstrated suspected pathological breathing disorder. She will need formal outpatient sleep study (6) Proteinuria: Code(s): R80.9 - Proteinuria, unspecified Status: Acute Assessment and Plan: Prealbumin low. Urinalysis demonstrates 2+ protein and she has elevated random urine protein. Albumin and protein low on CMP. 24 hour urine protein 504. Nephrology consulted given concern for possible nephrotic component however clinical picture felt more consistent with CHF as opposed to nephrotic syndrome. Serological studies ordered to r/o autoimmune disease or vasculitis. C3 and C4 normal. Additional studies are pending. Appreciate nephrology input (7) Generalized edema: Code(s): R60.1 - Generalized edema Status: Acute Assessment and Plan: Signifi
[2021-01-15] MEDS: BISACODYL 10 MG SUPPOSITORY RECTAL (16:59)
[2021-01-15 17:01] LABS: Folic Acid 10.4 ng/mL (2.76->20)
[2021-01-15] MEDS: ATORVASTATIN 40 MG TABLET 80 MG PO (20:52)
[2021-01-15] MEDS: DOCUSATE SODIUM 100 MG CAPSULE PO (20:53)
[2021-01-15] MEDS: LATANOPROST 0.005% OP SOLN 2.5 ML BTL 1 DROP EACH EYE (20:55)
[2021-01-15 21:01] LABS: Albumin Pleural Fluid 0.4 g/dL
[2021-01-16 05:51] VITALS: BP 130/61; PULSE 73; RESP 20; TEMP 35.9; O2SAT 90
[2021-01-16 06:45] LABS: Hematocrit 29.6 % (37.0-47.0); Hemoglobin 9.4 g/dL (12.0-15.0); Mean Corpuscular HGB Conc 31.8 g/dl (32-36); Mean Corpuscular Hemoglobin 28.7 pg (26-34); Mean Corpuscular Volume 90.2 fl (80-100); Mean Platelet Volume 9.2 fl (7.4-10.4); Platelet Count Result 273 k/mm3 (150-375); Red Blood Count 3.28 M/mm3 (4.2-5.4); Red Cell Distribution Width 17.3 % (11.5-14.5); White Blood Count 6.2 K/mm3 (4.5-10.0)
[2021-01-16 06:50] LABS: Albumin Level 2.5 g/dL (3.5-5.1); Anion Gap 2 mmol/L (8-16); Blood Urea Nitrogen 20 mg/dL (7-17); Calcium 7.7 mg/dL (8.4-10.2); Carbon Dioxide 29 mmol/L (22-30); Chloride 103 mmol/L (98-107); Estimated CRCL calculation 43 ml/min; Estimated Glomerular Filt Rate 45; Glucose 94 mg/dL (65-105); Magnesium 1.9 mg/dL (1.6-2.3); Phosphorus 4.2 mg/dL (2.5-4.5); Potassium 5.5 mmol/L (3.4-5.0); Sodium 134 mmol/L (137-145)
--- NOTE | 2021-01-16 07:23 | PM.PNNEP ---
Progress Note: A&P Additional Plan Proteinuria: random urine testing demonstrates about 2400mg of proteinuria, however the random urine protein and a random urine creatinine were on different days. However the 24hour urine shows only 504 mg of protein per day. This is an unlikely source of swelling. Urinalysis shows protein but no blood. checking serological evaluation to r/o autoimmune disease or vasculitis (she does have psoriatic arthritis) Complements are okay. Other tests are all pending. Will check a renal ultrasound. The proteinuria could be secondary to her history of diabetes, HTN, vascular disease agree with diuresis as tolerated. Her creatinine seems to be relatively stable. She is on 40 mg of furosemide orally. Bicarbonate level is okay. We can stop her bicarb. (2) Stage 3a chronic kidney disease: baseline creatinine around 1.0 - 1.1mg/dl presumably due to hypertension, cardiac/vascular disease and diabetes creatinine up to 1.3 a bit likely due to ongoing diuresis (3) Acute respiratory failure with hypoxia: due to #4 and pleural effusions s/p thoracentesis She feels much better since then. Off oxygen. diuresis as tolerated. She is on furosemide 40 mg per day (4) CHF exacerbation: Chest x-ray showed pulmonary edema on the . Continue diuresis follow I/O, daily weights, and respiratory status Check a chest x-ray in the morning. Cardiology following (5) C. difficile colitis: on oral vancomycin (6) edema Not much protein in the urine. At least not enough to cause swelling. Echocardiogram shows mild pulmonary hypertension, as does the chest CTA She has no history of alcohol use or history of cirrhosis. Albumin level was a little bit low. It is not clear if this is low enough to cause 3rd spacing. Usually if it happens, this happens below 2.0. She may have some lymphatic her venous insufficiency. Subjective Date/time seen: 01/16/21 07:23 Interval history: Patient feels okay. She says her swelling is better. She sat up in a chair yesterday and at the end of her time in the chair she did not have much swelling at all. She denies shortness of breath. Exam Narrative: Exam Narrative: General: WD/WN female in NAD Heart: normal S1 and S2; no rub or gallop Lungs: decreased breath sounds at bases Abdomen: soft, nontender, nondistended, positive bowel sounds Extremities: no cyanosis or clubbing; trace to1+ edema in the presacral area. Skin: No rash Objective Data Vital Signs Vital Signs: Vital Signs - 24 hr 01/15/21 10:20 01/15/21 10:56 01/15/21 14:00 Temperature 37.1 C Pulse Rate 79 81 Respiratory Rate 18 Blood Pressure 144/72 H Pulse Oximetry 91 90 01/15/21 20:40 01/15/21 20:53 01/15/21 21:55 Temperature 36.1 C L Pulse Rate 82 70 82 Respiratory Rate 20 20 Blood Pressure 126/69 Pulse Oximetry 90 90 01/16/21 05:51 Temperature 35.9 C L Pulse Rate 73 Respiratory Rate 20 Blood Pressure 130/61 Pulse Oximetry 90 Intake/Output Intake/Output: Intake & Output 01/13/21 01/14/21 01/15/21 01/16/21 22:59 23:59 23:59 23:59 Intake Total 430 500 Output Total 2000 Balance -1570 500 Meds/Results Medications: Active Medications Generic Name Dose Route Start Last Admin Trade Name Freq PRN Reason Stop Dose Admin Allopurinol 100 mg 01/10/21 09:00 01/15/21 10:57 Allopurinol 100 Mg Tablet PO 100 mg DAILY@0800 IVONE Administration Apixaban 5 mg 01/14/21 21:00 01/15/21 20:53 Apixaban 5 Mg Tablet PO 5 mg Q12HR IVONE Administration Aspirin 81 mg 01/10/21 09:00 01/15/21 11:29 Aspirin 81 Mg Enteric Tablet PO 81 mg DAILY IVONE Administration Atorvastatin Calcium 80 mg 01/10/21 02:15 01/15/21 20:52 Atorvastatin 40 Mg Tablet PO 80 mg HS IVONE Administration Dextrose 12.5 gm 01/10/21 01:56 Dextrose 50% 25 Gm/50 Ml Syringe IV PUSH PRN PRN Hypoglycemia Protocol Docu
[2021-01-16 08:24] VITALS: PULSE 75
[2021-01-16] MEDS: METOPROLOL TARTRATE 50 MG TAB PO ×2 (08:24→21:44)
[2021-01-16] MEDS: SACCHAROMYCES BOULARDII 250 MG CAPSULE PO ×2 (08:24→17:30)
[2021-01-16] MEDS: ESCITALOPRAM OXALATE 10 MG TABLET PO (08:24)
[2021-01-16] MEDS: ASPIRIN 81 MG ENTERIC TABLET PO (08:24)
[2021-01-16] MEDS: FUROSEMIDE 40 MG TABLET PO (08:24)
[2021-01-16] MEDS: FERROUS SULFATE 324 MG TABLET PO (08:24)
[2021-01-16] MEDS: FAMOTIDINE 20 MG TABLET PO (08:24)
[2021-01-16] MEDS: allopurinoL 100 MG TABLET PO (08:25)
[2021-01-16] MEDS: DOCUSATE SODIUM 100 MG CAPSULE PO ×2 (08:25→21:44)
[2021-01-16] MEDS: FLUTICASONE PROPIONATE 0.05% NA SPR 16 GM BTL (*BKC) 1 SPRAY NASAL (08:25)
[2021-01-16] MEDS: MAGNESIUM OXIDE 400 MG TABLET PO ×2 (08:25→17:30)
[2021-01-16] MEDS: APIXABAN 5 MG TABLET PO ×2 (08:25→21:43)
[2021-01-16] MEDS: VANCOMYCIN ORAL 125 MG/2.5 ML SYRUP PO ×2 (08:27→21:52)
[2021-01-16] MEDS: TOLNAFTATE 1% POWDER 45 GM BTL 1 APPLIC TOPICAL ×2 (08:27→21:45)
[2021-01-16 08:49] LABS: Potassium 4.9 mmol/L (3.4-5.0)
[2021-01-16 09:00] VITALS: PULSE 72; RESP 18; O2SAT 92
[2021-01-16] MEDS: ONDANSETRON INJ 4 MG/2 ML VIAL IV PUSH ×2 (10:22→21:52)
--- NOTE | 2021-01-16 12:33 | PM.IMPN ---
Progress Note: A&P Assessment and Plan (1) Acute respiratory failure with hypoxia: Code(s): J96.01 - Acute respiratory failure with hypoxia Status: Acute Assessment and Plan: Resolved. CXR demonstrated pulmonary edema, moderate pleural effusions, and bibasilar opacities. BNP markedly elevated at 24,700. She was initially requiring 4 liters per nasal cannula. Acute hypoxic respiratory failure is most likely secondary to CHF exacerbation. D-Dimer was elevated, therefore chest CTA evaluated which was negative for pulmonary embolism but showed large effusion on right and moderate to large on left with compressive atelectasis. She is s/p thoracentesis 01/12/21. Clinically, she does not appear to have pneumonia and bibasilar opacities are likely consistent with atelectasis. She is on room air today. Continue supplemental oxygen as needed to maintain oxygen saturation >90%, wean as tolerated Further plan as outlined below Home O2 trial on 01/13/21 demonstrated need for 1 L O2 at rest. Plan to repeat home O2 eval with hopeful discharge tomorrow if continued improvement. (2) CHF exacerbation: Qualifiers: Heart failure type: unspecified Qualified Code(s): I50.9 - Heart failure, unspecified Code(s): I50.9 - Heart failure, unspecified Status: Acute Assessment and Plan: Supported by CXR findings of pulmonary edema, moderate pleural effusions, and BNP 24,700. She noted increased dyspnea for 1 month, worse in the past week, orthopnea, and increased swelling to extremities. Echocardiogram performed 01/10/21 demonstrated EF 55-60%, grade II diastolic dysfunction. She has responded favorably to diuresis. She is on room air and doing well from this standpoint. She appears euvolemic. Cardiology following and input appreciated Continue lasix 40mg daily (she was on bumetanide 0.5 and furosemide 20 prior to admission but will plan to simplify this) Monitor volume status closely with daily weight and strict intake and output She will need outpatient follow-up with her primary client support coordinator, located at outside facility (3) Constipation: Code(s): K59.00 - Constipation, unspecified Status: Acute Assessment and Plan: Plain films of the abdomen on 01/15 demonstrate moderate to large amount of colonic stool and gas with possible constipation vs fecal impaction. She has had small, soft stools daily and she is on vancomycin taper due to C. diff colitis in Dec 2020. She had a bowel movement yesterday following suppository. Continue stool softener and miralax as needed Monitor clinically and consider repeat KUB if symptoms recur (4) Nausea: Code(s): R11.0 - Nausea Status: Acute Assessment and Plan: With associated lower abdominal cramping and bloating. Likely secondary to constipation. This has improved today. Plan for constipation as above Continue antiemetic as needed (5) Nocturnal hypoxia: Code(s): G47.34 - Idiopathic sleep related nonobstructive alveolar hypoventilation Status: Acute Assessment and Plan: Noted by RN that she seems to desaturate when sleeping but she maintains adequate oxygen saturation while awake. Apnea link ordered to assess nocturnal oxygen needs and screen for LISETTE. Apnea link demonstrated suspected pathological breathing disorder. She will need formal outpatient sleep study (6) Proteinuria: Code(s): R80.9 - Proteinuria, unspecified Status: Acute Assessment and Plan: Prealbumin low. Urinalysis demonstrates 2+ protein and she has elevated random urine protein. Albumin and protein low on CMP. 24 hour urine protein 504. Renal ultrasound showed normal kidneys. Nephrology consulted given concern for possible nephrotic component however clinical picture felt more consistent with CHF as opposed to nephrotic syndrome. Serological studies ordered to r/o autoimmune disease or vasculitis are pending. C3 and
[2021-01-16 14:00] VITALS: BP 105/57; PULSE 68; RESP 18; TEMP 36.6; O2SAT 96
[2021-01-16 18:33] LABS: SARS-CoV-2 RNA PCR Negative
[2021-01-16] MEDS: ATORVASTATIN 40 MG TABLET 80 MG PO (21:43)
[2021-01-16 21:44] VITALS: PULSE 78
[2021-01-16] MEDS: LATANOPROST 0.005% OP SOLN 2.5 ML BTL 1 DROP EACH EYE (21:44)
[2021-01-16] MEDS: MELATONIN 5 MG TABLET PO (21:52)
[2021-01-16 22:00] VITALS: BP 114/51; PULSE 64; RESP 18; TEMP 36.2; O2SAT 94
[2021-01-17 06:00] VITALS: BP 123/60; PULSE 70; RESP 16; TEMP 36.6; O2SAT 93
[2021-01-17 06:16] LABS: Hematocrit 26.7 % (37.0-47.0); Hemoglobin 8.9 g/dL (12.0-15.0); Mean Corpuscular HGB Conc 33.3 g/dl (32-36); Mean Corpuscular Hemoglobin 29.3 pg (26-34); Mean Corpuscular Volume 87.8 fl (80-100); Mean Platelet Volume 9.3 fl (7.4-10.4); Platelet Count Result 242 k/mm3 (150-375); Red Blood Count 3.04 M/mm3 (4.2-5.4); Red Cell Distribution Width 17.4 % (11.5-14.5); White Blood Count 7.2 K/mm3 (4.5-10.0)
[2021-01-17 06:23] LABS: Albumin Level 2.2 g/dL (3.5-5.1); Anion Gap 0 mmol/L (8-16); Blood Urea Nitrogen 21 mg/dL (7-17); Calcium 7.7 mg/dL (8.4-10.2); Carbon Dioxide 27 mmol/L (22-30); Chloride 106 mmol/L (98-107); Estimated CRCL calculation 37 ml/min; Estimated Glomerular Filt Rate 38; Glucose 94 mg/dL (65-105); Phosphorus 4.1 mg/dL (2.5-4.5); Potassium 5.4 mmol/L (3.4-5.0); Sodium 133 mmol/L (137-145)
[2021-01-17 08:37] VITALS: PULSE 70
[2021-01-17] MEDS: METOPROLOL TARTRATE 50 MG TAB PO ×2 (08:37→22:40)
[2021-01-17] MEDS: TOLNAFTATE 1% POWDER 45 GM BTL 1 APPLIC TOPICAL ×2 (08:37→22:39)
[2021-01-17] MEDS: SACCHAROMYCES BOULARDII 250 MG CAPSULE PO ×2 (08:37→17:10)
[2021-01-17] MEDS: ESCITALOPRAM OXALATE 10 MG TABLET PO (08:38)
[2021-01-17] MEDS: ASPIRIN 81 MG ENTERIC TABLET PO (08:38)
[2021-01-17] MEDS: APIXABAN 5 MG TABLET PO ×2 (08:38→22:40)
[2021-01-17] MEDS: FUROSEMIDE 40 MG TABLET PO (08:38)
[2021-01-17] MEDS: FLUTICASONE PROPIONATE 0.05% NA SPR 16 GM BTL (*BKC) 1 SPRAY NASAL (08:38)
[2021-01-17] MEDS: FERROUS SULFATE 324 MG TABLET PO (08:38)
[2021-01-17] MEDS: FAMOTIDINE 20 MG TABLET PO (08:38)
[2021-01-17] MEDS: DOCUSATE SODIUM 100 MG CAPSULE PO ×2 (08:38→22:39)
[2021-01-17] MEDS: MAGNESIUM OXIDE 400 MG TABLET PO ×2 (08:38→17:10)
[2021-01-17] MEDS: allopurinoL 100 MG TABLET PO (08:38)
--- NOTE | 2021-01-17 08:59 | PM.PNNEP ---
Progress Note: A&P Additional Plan Proteinuria: random urine testing demonstrates about 2400mg of proteinuria, however the random urine protein and a random urine creatinine were on different days. However the 24hour urine shows only 504 mg of protein per day. This is an unlikely source of swelling. Urinalysis shows protein but no blood. checking serological evaluation to r/o autoimmune disease or vasculitis (she does have psoriatic arthritis) Complements are okay. Other tests are all pending. renal ultrasound Is normal most likely the proteinuria is secondary to her history of diabetes, HTN, vascular disease agree with diuresis as tolerated. her creatinine jose to 1.4. It is creeping up. She is on 40 mg of furosemide orally. Continue this for now. Bicarbonate level is okay. She is off the bicarb. (2) Stage 3a chronic kidney disease: baseline creatinine around 1.0 - 1.1mg/dl presumably due to hypertension, cardiac/vascular disease and diabetes creatinine up to 1.4 a bit likely due to ongoing diuresis She will probably end up with a new baseline creatinine in order to keep the fluid off. (3) Acute respiratory failure with hypoxia: due to #4 and pleural effusions s/p thoracentesis She feels much better since then. Off oxygen. diuresis as tolerated. She is on furosemide 40 mg per day (4) CHF exacerbation: Chest x-ray showed pulmonary edema on the . Continue diuresis follow I/O, daily weights, and respiratory status Check a chest x-ray in the morning. Cardiology following (5) C. difficile colitis: on oral vancomycin (6) edema Not much protein in the urine. At least not enough to cause swelling. Echocardiogram shows mild pulmonary hypertension, as does the chest CTA She has no history of alcohol use or history of cirrhosis. Albumin level was a little bit low. It is not clear if this is low enough to cause 3rd spacing. Usually if it happens, this happens below 2.0. She probably has some lymphatic her venous insufficiency. Subjective Date/time seen: 01/17/21 08:59 Interval history: Patient feels okay. eating okay. Sitting up in a chair every day. She denies shortness of breath. Review of Systems Cardiovascular: Cardiovascular: Reports no additional cardiovascular complaints Respiratory: Respiratory: Reports no additional respiratory complaints Gastrointestinal: Gastrointestinal: Reports no additional gastrointestinal complaints Genitourinary: Genitourinary: Reports no additional female genitourinary complaints Exam Narrative: Exam Narrative: General: WD/WN female in NAD Heart: normal S1 and S2; no rub or gallop Lungs: decreased breath sounds at bases Abdomen: soft, nontender, nondistended, positive bowel sounds Extremities: no cyanosis or clubbing; 1+ edema in the presacral area. Skin: No rash Or subcu nodules Objective Data Vital Signs Vital Signs: Vital Signs - 24 hr 01/16/21 09:00 01/16/21 14:00 01/16/21 21:44 Temperature 36.6 C Pulse Rate 72 68 78 Respiratory Rate 18 18 Blood Pressure 105/57 L Pulse Oximetry 92 96 01/16/21 22:00 01/17/21 06:00 01/17/21 08:37 Temperature 36.2 C L 36.6 C Pulse Rate 64 70 70 Respiratory Rate 18 16 Blood Pressure 114/51 L 123/60 Pulse Oximetry 94 93 Intake/Output Intake/Output: Intake & Output 01/14/21 01/15/21 01/16/21 01/17/21 23:59 23:59 23:59 23:59 Intake Total 430 1600 50 Output Total 2000 Balance -1570 1600 50 Meds/Results Medications: Active Medications Generic Name Dose Route Start Last Admin Trade Name Freq PRN Reason Stop Dose Admin Allopurinol 100 mg 01/10/21 09:00 01/17/21 08:38 Allopurinol 100 Mg Tablet PO 100 mg DAILY@0800 [facility] Administration Apixaban 5 mg 01/14/21 21:00 01/17/21 08:38 Apixaban 5 Mg Tablet PO 5 mg Q12HR IVONE Administration Aspirin 81 mg 01/10/21 09:00 01/17/21 08:38 Aspirin 81 Mg Enteric Tablet PO
[2021-01-17] MEDS: VANCOMYCIN ORAL 125 MG/2.5 ML SYRUP PO ×2 (09:59→22:47)
--- NOTE | 2021-01-17 11:17 | PCNWS ---
Weekly nutritional screen. Patient is tolerating current diet with adequate intake. No weight loss reported. Patient requested information on a low sodium diet. See nutritional teaching intervention for more details. No nutritional needs at this time.
[2021-01-17 12:52] LABS: Potassium 5.1 mmol/L (3.4-5.0)
--- NOTE | 2021-01-17 13:21 | PCNSR ---
On 01/17/21, the student, Jennifer Weiss, provided care and completed [facility] documentation on this patient. I have reviewed the student's documentation and agree with the findings.
--- NOTE | 2021-01-17 13:48 | PM.IMPN ---
Progress Note: A&P Assessment and Plan (1) Acute respiratory failure with hypoxia: Code(s): J96.01 - Acute respiratory failure with hypoxia Status: Acute Assessment and Plan: Resolved. CXR demonstrated pulmonary edema, moderate pleural effusions, and bibasilar opacities. BNP markedly elevated at 24,700. She was initially requiring 4 liters per nasal cannula. Acute hypoxic respiratory failure is most likely secondary to CHF exacerbation. D-Dimer was elevated, therefore chest CTA evaluated which was negative for pulmonary embolism but showed large effusion on right and moderate to large on left with compressive atelectasis. She is s/p thoracentesis 01/12/21. Clinically, she does not appear to have pneumonia and bibasilar opacities are likely consistent with atelectasis. She is on room air today. Continue supplemental oxygen as needed to maintain oxygen saturation >90%, wean as tolerated Further plan as outlined below Home O2 trial on 01/13/21 demonstrated need for 1 L O2 at rest. Discussed with respiratory therapist. No need for repeat home O2 eval as she will be going to nursing facility. They can titrate oxygen as needed there. She is not requiring supplemental O2 at this time. (2) CHF exacerbation: Qualifiers: Heart failure type: unspecified Qualified Code(s): I50.9 - Heart failure, unspecified Code(s): I50.9 - Heart failure, unspecified Status: Acute Assessment and Plan: Supported by CXR findings of pulmonary edema, moderate pleural effusions, and BNP 24,700. She noted increased dyspnea for 1 month, worse in the past week, orthopnea, and increased swelling to extremities. Echocardiogram performed 01/10/21 demonstrated EF 55-60%, grade II diastolic dysfunction. She has responded favorably to diuresis. She is on room air and doing well from this standpoint. She appears euvolemic. Cardiology following and input appreciated Continue lasix 40mg daily. Cautious diuresis in light of SAHIL. Monitor volume status closely with daily weight and strict intake and output She will need outpatient follow-up with her primary airport shuttle driver, located at outside facility (3) Acute kidney injury superimposed on CKD: Code(s): N17.9 - Acute kidney failure, unspecified; N18.9 - Chronic kidney disease, unspecified Status: Acute Assessment and Plan: Baseline creatinine appears to be 1.0-1.1. Of hypertension and diabetes. Creatinine is slowly creeping up and is 1.4 today. Acute injury is likely related to continue diuresis Monitor renal function closely. Continue with cautious diuresis. Appreciate nephrology input. This will likely become her new baseline as diuresis is needed given CHF Monitor BMP (4) Constipation: Code(s): K59.00 - Constipation, unspecified Status: Acute Assessment and Plan: Plain films of the abdomen on 01/15 demonstrate moderate to large amount of colonic stool and gas with possible constipation vs fecal impaction. She has had small, soft stools daily and she is on vancomycin taper due to C. diff colitis in Dec 2020. She had a bowel movement on 01/15 following suppository. Continue stool softener. Will schedule miralax to develop a more consistent bowel schedule Monitor clinically and consider repeat KUB if symptoms recur (5) Nausea: Code(s): R11.0 - Nausea Status: Acute Assessment and Plan: With associated lower abdominal cramping and bloating, likely secondary to constipation. Resolved. Continue antiemetic as needed (6) Nocturnal hypoxia: Code(s): G47.34 - Idiopathic sleep related nonobstructive alveolar hypoventilation Status: Acute Assessment and Plan: Noted by RN that she seems to desaturate when sleeping but she maintains adequate oxygen saturation while awake. Apnea link ordered to assess nocturnal oxygen needs and screen for LISETTE. Apnea link demonstrated suspected pathological
[2021-01-17 14:00] VITALS: BP 132/57; PULSE 65; RESP 20; TEMP 36.4; O2SAT 93
[2021-01-17 18:43] LABS: Anti Glomerular Basement Memb <1.0 AI (<1.0)
[2021-01-17 20:00] VITALS: PULSE 90; RESP 20; O2SAT 101
[2021-01-17 21:43] LABS: Albumin 1.9 g/dL (3.8-4.8); Alpha 1 Globulin 0.4 g/dL (0.2-0.3); Alpha 2 Globulin 0.8 g/dL (0.5-0.9); Beta 1 Globulin 0.3 g/dL (0.4-0.6); Gamma Globulin 0.6 g/dL (0.8-1.7); Protein, Total 4.2 g/dL (6.1-8.1)
[2021-01-17 22:00] VITALS: BP 119/62; PULSE 73; RESP 20; TEMP 36.6; O2SAT 101
[2021-01-17 22:40] VITALS: PULSE 90
[2021-01-17] MEDS: ATORVASTATIN 40 MG TABLET 80 MG PO (22:40)
[2021-01-17] MEDS: LATANOPROST 0.005% OP SOLN 2.5 ML BTL 1 DROP EACH EYE (22:41)
[2021-01-18 06:00] VITALS: BP 134/53; PULSE 72; RESP 20; TEMP 36.6; O2SAT 94
[2021-01-18 06:27] LABS: Hematocrit 26.2 % (37.0-47.0); Hemoglobin 8.2 g/dL (12.0-15.0); Mean Corpuscular HGB Conc 31.3 g/dl (32-36); Mean Corpuscular Hemoglobin 28.4 pg (26-34); Mean Corpuscular Volume 90.7 fl (80-100); Mean Platelet Volume 9.3 fl (7.4-10.4); Platelet Count Result 271 k/mm3 (150-375); Red Blood Count 2.89 M/mm3 (4.2-5.4); Red Cell Distribution Width 17.4 % (11.5-14.5)
[2021-01-18 06:30] LABS: Albumin Level 2.1 g/dL (3.5-5.1); Anion Gap -3 mmol/L (8-16); Blood Urea Nitrogen 23 mg/dL (7-17); Calcium 7.5 mg/dL (8.4-10.2); Carbon Dioxide 31 mmol/L (22-30); Chloride 105 mmol/L (98-107); Estimated CRCL calculation 31 ml/min; Estimated Glomerular Filt Rate 30; Glucose 102 mg/dL (65-105); Magnesium 1.9 mg/dL (1.6-2.3); Phosphorus 3.8 mg/dL (2.5-4.5); Potassium 5.4 mmol/L (3.4-5.0); Sodium 133 mmol/L (137-145)
[2021-01-18] MEDS: ONDANSETRON INJ 4 MG/2 ML VIAL IV PUSH ×2 (08:25→12:25)
[2021-01-18] MEDS: FLUTICASONE PROPIONATE 0.05% NA SPR 16 GM BTL (*BKC) 1 SPRAY NASAL (08:31)
[2021-01-18] MEDS: TOLNAFTATE 1% POWDER 45 GM BTL 1 APPLIC TOPICAL ×2 (08:31→20:37)
--- NOTE | 2021-01-18 09:34 | PCPTNOTE ---
Patient refused treatment this session due to patient nauseated at this time. Attempted to see patient at 09:32. Patient nauseous and holding basin to mouth. RN aware of patient's nausea. Will attempt in PM as appropriate. Jewell Arias, [employer]
--- NOTE | 2021-01-18 11:29 | PM.PNNEP ---
Progress Note: A&P Additional Plan Proteinuria: 24hour urine shows only 504 mg of protein per day. This is an unlikely source of swelling. Urinalysis shows protein but no blood. checking serological evaluation to r/o autoimmune disease or vasculitis (she does have psoriatic arthritis) Complements are okay. Other tests are all pending. renal ultrasound Is normal most likely the proteinuria is secondary to her history of diabetes, HTN, vascular disease agree with diuresis as tolerated. her creatinine jose to 1.7. This is a little higher. Will reduce the furosemide to20mg a day. Bicarbonate level is high, most likely from the furosemide. She is off the bicarb. (2) Stage 3a chronic kidney disease: baseline creatinine around 1.0 - 1.1mg/dl presumably due to hypertension, cardiac/vascular disease and diabetes creatinine up to 1.7 a bit likely due to ongoing diuresis She will probably end up with a new baseline creatinine in order to keep the fluid off. (3) Acute respiratory failure with hypoxia: due to #4 and pleural effusions s/p thoracentesis She feels much better since then. Off oxygen. diuresis as tolerated. She is on furosemide 40 mg per day. Reduce the dose to 20 And start this on Friday.. (4) CHF exacerbation: Chest x-ray showed pulmonary edema on the . Continue diuresis follow I/O, daily weights, and respiratory status Check a chest x-ray in the morning. Cardiology following (5) C. difficile colitis: on oral vancomycin (6) edema Most likely multifactorial. Echocardiogram shows mild pulmonary hypertension, as does the chest CTA Albumin level was a little bit low. It is not clear if this is low enough to cause 3rd spacing. She probably has some lymphatic her venous insufficiency. Subjective Date/time seen: 01/18/21 11:29 Interval history: Patient feels okay. Finishing her breakfast. She denies shortness of breath. Review of Systems Cardiovascular: Cardiovascular: Reports no additional cardiovascular complaints Respiratory: Respiratory: Reports no additional respiratory complaints Gastrointestinal: Gastrointestinal: Reports no additional gastrointestinal complaints Genitourinary: Genitourinary: Reports no additional female genitourinary complaints Exam Narrative: Exam Narrative: General: WD/WN female in NAD Heart: normal S1 and S2; no rub or gallop Lungs: decreased breath sounds at bases Abdomen: soft, nontender, nondistended, positive bowel sounds Extremities: 1+ edema in the presacral area. Skin: No rash or subcu nodules Objective Data Vital Signs Vital Signs: Vital Signs - 24 hr 01/17/21 14:00 01/17/21 20:00 01/17/21 22:00 Temperature 36.4 C L 36.6 C Pulse Rate 65 90 73 Respiratory Rate 20 20 20 Blood Pressure 132/57 L 119/62 Pulse Oximetry 93 101 H 101 H 01/17/21 22:40 01/18/21 06:00 Temperature 36.6 C Pulse Rate 90 72 Respiratory Rate 20 Blood Pressure 134/53 L Pulse Oximetry 94 Intake/Output Intake/Output: Intake & Output 01/15/21 01/16/21 01/17/21 01/18/21 23:59 23:59 23:59 23:59 Intake Total 430 1600 630 240 Output Total 2000 Balance -1570 1600 630 240 Meds/Results Medications: Active Medications Generic Name Dose Route Start Last Admin Trade Name Freq PRN Reason Stop Dose Admin Allopurinol 100 mg 01/10/21 09:00 01/17/21 08:38 Allopurinol 100 Mg Tablet PO 100 mg DAILY@0800 [facility] Administration Apixaban 5 mg 01/14/21 21:00 01/17/21 22:40 Apixaban 5 Mg Tablet PO 5 mg Q12HR IVONE Administration Aspirin 81 mg 01/10/21 09:00 01/17/21 08:38 Aspirin 81 Mg Enteric Tablet PO 81 mg DAILY IVONE Administration Atorvastatin Calcium 80 mg 01/10/21 02:15 01/17/21 22:40 Atorvastatin 40 Mg Tablet PO 80 mg HS IVONE Administration Dextrose 12.5 gm 01/10/21 01:56 Dextrose 50% 25 Gm/50 Ml Syringe IV PUSH PRN PRN Hypoglycemia Protocol Docu
--- NOTE | 2021-01-18 13:20 | PCOTNOTE ---
Attempted to see patient this pm, however patient declined due to nausea. Pt reported taking medication for the nausea, however it was not helping. Pt began dry heaving upon moving in the bed. Pt not seen for this reason.
[2021-01-18 13:55] LABS: IFOB Positive Control Positive; Immunochemical Fecal Occult Bl Negative (N)
[2021-01-18 14:00] VITALS: BP 145/71; PULSE 69; RESP 18; TEMP 36.4; O2SAT 98
--- NOTE | 2021-01-18 16:03 | PM.IMPN ---
Progress Note: A&P Assessment and Plan (1) Acute respiratory failure with hypoxia: Code(s): J96.01 - Acute respiratory failure with hypoxia Status: Acute Assessment and Plan: Resolved. CXR demonstrated pulmonary edema, moderate pleural effusions, and bibasilar opacities. BNP markedly elevated at 24,700. She was initially requiring 4 liters per nasal cannula. Acute hypoxic respiratory failure is most likely secondary to CHF exacerbation. D-Dimer was elevated, therefore chest CTA evaluated which was negative for pulmonary embolism but showed large effusion on right and moderate to large on left with compressive atelectasis. She is s/p thoracentesis 01/12/21. Clinically, she does not appear to have pneumonia and bibasilar opacities are likely consistent with atelectasis. She is on room air today. Continue supplemental oxygen as needed to maintain oxygen saturation >90%, wean as tolerated Further plan as outlined below Home O2 trial on 01/13/21 demonstrated need for 1 L O2 at rest. Discussed with respiratory therapist. No need for repeat home O2 eval as she will be going to nursing facility. They can titrate oxygen as needed there. She is not requiring supplemental O2 at this time. (2) CHF exacerbation: Qualifiers: Heart failure type: unspecified Qualified Code(s): I50.9 - Heart failure, unspecified Code(s): I50.9 - Heart failure, unspecified Status: Acute Assessment and Plan: Supported by CXR findings of pulmonary edema, moderate pleural effusions, and BNP 24,700. She noted increased dyspnea for 1 month, worse in the past week, orthopnea, and increased swelling to extremities. Echocardiogram performed 01/10/21 demonstrated EF 55-60%, grade II diastolic dysfunction. She has responded favorably to diuresis. She is on room air and doing well from this standpoint. She appears euvolemic. Cardiology following and input appreciated Continue lasix. Decreased dose to 20 mg daily. Monitor volume status closely with daily weight and strict intake and output She will need outpatient follow-up with her primary food technician, located at outside facility (3) Acute kidney injury superimposed on CKD: Code(s): N17.9 - Acute kidney failure, unspecified; N18.9 - Chronic kidney disease, unspecified Status: Acute Assessment and Plan: Baseline creatinine appears to be 1.0-1.1. CKD related to history of hypertension and diabetes. Creatinine is slowly creeping up and is 1.7 today. Acute injury is likely related to continue diuresis Monitor renal function closely. Continue with cautious diuresis, reduce furosemide 20 mg daily per nephrology recommendations. Appreciate nephrology input. This will likely become her new baseline as diuresis is needed given CHF Monitor BMP (4) Nausea: Code(s): R11.0 - Nausea Status: Acute Assessment and Plan: She is having increased nausea today. She has not been able to tolerate her oral medications and has not eaten lunch. This may be due to hyperkalemia or uremia. Antiemetics available as needed Monitor electrolytes If nausea persists and her oral intake remains decreased, cautious IV fluids will be considered (5) Hyperkalemia: Code(s): E87.5 - Hyperkalemia Status: Resolved Assessment and Plan: 5.7 upon admission. This was felt to be related to oral potassium supplementation in combination with underlying CKD. Potassium levels normalized, however subsequently have started to increase again. Potassium is 5.4 today. Low potassium diet initiated Monitor renal function and potassium daily. Nephrology input is appreciated (6) Proteinuria: Code(s): R80.9 - Proteinuria, unspecified Status: Acute Assessment and Plan: Prealbumin low. Urinalysis demonstrates 2+ protein and she has elevated random urine protein. Albumin and protein low on CMP. 24 hour urine protein 504. Margie
[2021-01-18] MEDS: PROMETHAZINE HCL 25 MG/ML AMPUL 12.5 MG IV PUSH ×2 (16:19→20:32)
[2021-01-18 21:33] LABS: ANCA Screen Negative (Negative)
[2021-01-18 21:34] VITALS: BP 152/89; PULSE 93; RESP 20; TEMP 35.9; O2SAT 95
[2021-01-19] MEDS: PROMETHAZINE HCL 25 MG/ML AMPUL 12.5 MG IV PUSH ×4 (00:31→20:11)
[2021-01-19 05:13] LABS: Creatinine, Random Urine 18 mg/dL (20-275); Total Protein/Creatinine Ratio 833 mg/g creat (21-161)
[2021-01-19 06:00] VITALS: BP 136/78; PULSE 89; RESP 20; TEMP 36.2; O2SAT 98
[2021-01-19 06:27] LABS: Albumin Level 2.5 g/dL (3.5-5.1); Anion Gap 2 mmol/L (8-16); Blood Urea Nitrogen 18 mg/dL (7-17); Calcium 7.9 mg/dL (8.4-10.2); Carbon Dioxide 27 mmol/L (22-30); Chloride 105 mmol/L (98-107); Estimated CRCL calculation 35 ml/min; Estimated Glomerular Filt Rate 41; Glucose 121 mg/dL (65-105); Sodium 134 mmol/L (137-145)
[2021-01-19] MEDS: ASPIRIN 81 MG ENTERIC TABLET PO (09:15)
[2021-01-19] MEDS: FAMOTIDINE 20 MG TABLET PO (09:15)
[2021-01-19] MEDS: FERROUS SULFATE 324 MG TABLET PO (09:15)
[2021-01-19] MEDS: allopurinoL 100 MG TABLET PO (09:15)
[2021-01-19] MEDS: APIXABAN 5 MG TABLET PO ×2 (09:15→20:11)
[2021-01-19] MEDS: MAGNESIUM OXIDE 400 MG TABLET PO ×2 (09:15→16:19)
[2021-01-19] MEDS: SACCHAROMYCES BOULARDII 250 MG CAPSULE PO ×2 (09:15→16:19)
[2021-01-19] MEDS: ESCITALOPRAM OXALATE 10 MG TABLET PO (09:15)
[2021-01-19 09:16] VITALS: PULSE 86
[2021-01-19] MEDS: METOPROLOL TARTRATE 50 MG TAB PO ×2 (09:16→20:11)
[2021-01-19] MEDS: TOLNAFTATE 1% POWDER 45 GM BTL 1 APPLIC TOPICAL ×2 (09:16→20:11)
[2021-01-19] MEDS: VANCOMYCIN ORAL 125 MG/2.5 ML SYRUP PO ×2 (09:16→20:12)
[2021-01-19] MEDS: FLUTICASONE PROPIONATE 0.05% NA SPR 16 GM BTL (*BKC) 1 SPRAY NASAL (09:17)
[2021-01-19 14:00] VITALS: BP 140/58; PULSE 62; RESP 16; TEMP 36.3; O2SAT 100
--- NOTE | 2021-01-19 15:51 | PM.IMPN ---
Progress Note: A&P Assessment and Plan (1) Acute respiratory failure with hypoxia: Code(s): J96.01 - Acute respiratory failure with hypoxia Status: Acute Assessment and Plan: Resolved. CXR demonstrated pulmonary edema, moderate pleural effusions, and bibasilar opacities. BNP markedly elevated at 24,700. She was initially requiring 4 liters per nasal cannula. Acute hypoxic respiratory failure is most likely secondary to CHF exacerbation. D-Dimer was elevated, therefore chest CTA evaluated which was negative for pulmonary embolism but showed large effusion on right and moderate to large on left with compressive atelectasis. She is s/p thoracentesis 01/12/21. Clinically, she does not appear to have pneumonia and bibasilar opacities are likely consistent with atelectasis. She has been stable on room air for several days. Continue supplemental oxygen as needed to maintain oxygen saturation >90%, wean as tolerated Further plan as outlined below Home O2 trial on 01/13/21 demonstrated need for 1 L O2 at rest. Discussed with respiratory therapist. No need for repeat home O2 eval as she will be going to nursing facility. They can titrate oxygen as needed there. She is not requiring supplemental O2 at this time. (2) CHF exacerbation: Qualifiers: Heart failure type: unspecified Qualified Code(s): I50.9 - Heart failure, unspecified Code(s): I50.9 - Heart failure, unspecified Status: Acute Assessment and Plan: Supported by CXR findings of pulmonary edema, moderate pleural effusions, and BNP 24,700. She noted increased dyspnea for 1 month, worse in the past week, orthopnea, and increased swelling to extremities. Echocardiogram performed 01/10/21 demonstrated EF 55-60%, grade II diastolic dysfunction. She has responded favorably to diuresis. She is on room air and doing well from this standpoint. She appears euvolemic. Cardiology following and input appreciated Continue lasix at decreased dose to 20 mg daily. She Mr. dose of Lasix yesterday as she was not tolerating any medications. She still appears euvolemic today. Monitor volume status closely with daily weight and strict intake and output She will need outpatient follow-up with her primary boot and shoe laborer, located at outside facility (3) Acute kidney injury superimposed on CKD: Code(s): N17.9 - Acute kidney failure, unspecified; N18.9 - Chronic kidney disease, unspecified Status: Acute Assessment and Plan: Baseline creatinine appears to be 1.0-1.1. CKD related to history of hypertension and diabetes. Creatinine was slowly creeping up to 1.7, but has improved to 1.3 today. Acute injury is likely related to continue diuresis. Monitor renal function closely. Continue with cautious diuresis. Furosemide dose has been lowered. Monitor effect on kidneys. Appreciate nephrology input. This will likely become her new baseline as diuresis is needed given CHF Monitor BMP (4) Nausea: Code(s): R11.0 - Nausea Status: Acute Assessment and Plan: She was having increased nausea yesterday. She was not able to tolerate her oral medications and did not eat much. This may have been due to hyperkalemia or uremia. Complained of nausea this morning but since has resolved. Antiemetics available as needed Monitor electrolytes (5) Hyperkalemia: Code(s): E87.5 - Hyperkalemia Status: Resolved Assessment and Plan: 5.7 upon admission. This was felt to be related to oral potassium supplementation in combination with underlying CKD. Potassium levels normalized, however subsequently started to increase again up to 5.4. Improved at 5.0 today Low potassium diet Monitor renal function and potassium daily. Nephrology input is appreciated (6) Proteinuria: Code(s): R80.9 - Proteinuria, unspecified Status: Acute Assessment and Plan: Prealbumin low. Urinalysis demonstrates
[2021-01-19 19:28] LABS: SARS-CoV-2 RNA PCR Negative
[2021-01-19 20:00] VITALS: O2SAT 100
[2021-01-19 20:11] VITALS: PULSE 67
[2021-01-19] MEDS: LATANOPROST 0.005% OP SOLN 2.5 ML BTL 1 DROP EACH EYE (20:11)
[2021-01-19] MEDS: ATORVASTATIN 40 MG TABLET 80 MG PO (20:11)
[2021-01-19 22:00] VITALS: BP 116/64; PULSE 67; RESP 18; TEMP 35.6; O2SAT 100
[2021-01-20 03:17] LABS: Cryoglobulin, QL Negative (Negative)
[2021-01-20 06:00] VITALS: BP 102/49; PULSE 68; RESP 16; TEMP 36.3; O2SAT 100
[2021-01-20 06:32] LABS: Anion Gap 0 mmol/L (8-16); Blood Urea Nitrogen 16 mg/dL (7-17); Calcium 7.9 mg/dL (8.4-10.2); Carbon Dioxide 28 mmol/L (22-30); Chloride 106 mmol/L (98-107); Estimated CRCL calculation 35 ml/min; Estimated Glomerular Filt Rate 41; Glucose 91 mg/dL (65-105); Potassium 4.7 mmol/L (3.4-5.0); Sodium 134 mmol/L (137-145)
[2021-01-20 06:36] LABS: Hematocrit 29.3 % (37.0-47.0); Hemoglobin 9.5 g/dL (12.0-15.0)
[2021-01-20] MEDS: ASPIRIN 81 MG ENTERIC TABLET PO (08:20)
[2021-01-20] MEDS: allopurinoL 100 MG TABLET PO (08:20)
[2021-01-20] MEDS: FERROUS SULFATE 324 MG TABLET PO (08:20)
[2021-01-20] MEDS: FAMOTIDINE 20 MG TABLET PO (08:20)
[2021-01-20] MEDS: APIXABAN 5 MG TABLET PO (08:20)
[2021-01-20] MEDS: ESCITALOPRAM OXALATE 10 MG TABLET PO (08:20)
[2021-01-20 08:21] VITALS: PULSE 68
[2021-01-20] MEDS: MAGNESIUM OXIDE 400 MG TABLET PO (08:21)
[2021-01-20] MEDS: FUROSEMIDE 20 MG TABLET PO (08:21)
[2021-01-20] MEDS: METOPROLOL TARTRATE 50 MG TAB PO (08:21)
[2021-01-20] MEDS: TOLNAFTATE 1% POWDER 45 GM BTL 1 APPLIC TOPICAL (08:22)
[2021-01-20] MEDS: SACCHAROMYCES BOULARDII 250 MG CAPSULE PO (08:22)
[2021-01-20] MEDS: FLUTICASONE PROPIONATE 0.05% NA SPR 16 GM BTL (*BKC) 1 SPRAY NASAL (08:22)
[2021-01-20] MEDS: VANCOMYCIN ORAL 125 MG/2.5 ML SYRUP PO (08:23)
--- NOTE | 2021-01-20 10:13 | PM.PNNEP ---
Progress Note: A&P Additional Plan Proteinuria: 24hour urine shows only 504 mg of protein per day. This is an unlikely source of swelling. Urinalysis shows protein but no blood. checking serological evaluation to r/o autoimmune disease or vasculitis (she does have psoriatic arthritis) Serology and immunofixation are all negative. renal ultrasound Is normal most likely the proteinuria is secondary to her history of diabetes, HTN, vascular disease Her creatinine has fallen to 1.3. She is on Lasix 20 mg a day and maintaining her fluid status. I am okay for discharge any time. I discussed with Sabra. (2) Stage 3a chronic kidney disease: baseline creatinine around 1.0 - 1.1mg/dl presumably due to hypertension, cardiac/vascular disease and diabetes Most likely she is at a new baseline of around 1.3. (3) Acute respiratory failure with hypoxia: due to #4 and pleural effusions s/p thoracentesis She feels much better since then. Off oxygen. diuresis as tolerated. She is on furosemide 20 mg a day. She can stay on this. (4) CHF exacerbation: Chest x-ray showed pulmonary edema on the . Continue diuresis follow I/O, daily weights, and respiratory status Check a chest x-ray in the morning. Cardiology following (5) C. difficile colitis: on oral vancomycin (6) edema Most likely multifactorial. Echocardiogram shows mild pulmonary hypertension, as does the chest CTA Albumin level was a little bit low. It is not clear if this is low enough to cause 3rd spacing. She probably has some lymphatic her venous insufficiency. Subjective Date/time seen: 01/20/21 10:13 Interval history: Patient feels okay. No shortness of breath. Swelling is better. Exam Narrative: Exam Narrative: General: WD/WN female in NAD Heart: normal S1 and S2; no rub or gallop Lungs: decreased breath sounds at bases Abdomen: soft, nontender, nondistended, positive bowel sounds Extremities: Trace edema in the presacral area. Skin: No rash or subcu nodules Objective Data Vital Signs Vital Signs: Vital Signs - 24 hr 01/19/21 14:00 01/19/21 20:00 01/19/21 20:11 Temperature 36.3 C L Pulse Rate 62 67 Respiratory Rate 16 Blood Pressure 140/58 L Pulse Oximetry 100 100 01/19/21 22:00 01/20/21 06:00 01/20/21 08:21 Temperature 35.6 C L 36.3 C L Pulse Rate 67 68 68 Respiratory Rate 18 16 Blood Pressure 116/64 102/49 L Pulse Oximetry 100 100 Intake/Output Intake/Output: Intake & Output 01/17/21 01/18/21 01/19/21 01/20/21 23:59 23:59 23:59 23:59 Intake Total 630 490 170 360 Balance 630 490 170 360 Meds/Results Medications: Active Medications Generic Name Dose Route Start Last Admin Trade Name Freq PRN Reason Stop Dose Admin Allopurinol 100 mg 01/10/21 09:00 01/20/21 08:20 Allopurinol 100 Mg Tablet PO 100 mg DAILY@0800 [facility] Administration Apixaban 5 mg 01/14/21 21:00 01/20/21 08:20 Apixaban 5 Mg Tablet PO 5 mg Q12HR [facility] Administration Aspirin 81 mg 01/10/21 09:00 01/20/21 08:20 Aspirin 81 Mg Enteric Tablet PO 81 mg DAILY [facility] Administration Atorvastatin Calcium 80 mg 01/10/21 02:15 01/19/21 20:11 Atorvastatin 40 Mg Tablet PO 80 mg HS [facility] Administration Dextrose 12.5 gm 01/10/21 01:56 Dextrose 50% 25 Gm/50 Ml Syringe IV PUSH PRN PRN Hypoglycemia Protocol Escitalopram Oxalate 10 mg 01/10/21 09:00 01/20/21 08:20 Escitalopram Oxalate 10 Mg Tablet PO 10 mg DAILY [facility] Administration Famotidine 20 mg 01/10/21 09:00 01/20/21 08:20 Famotidine 20 Mg Tablet PO 20 mg DAILY [facility] Administration Ferrous Sulfate 324 mg 01/12/21 09:00 01/20/21 08:20 Ferrous Sulfate 324 Mg Tablet PO 324 mg DAILY [facility] Administration Fluticasone Propionate 1 spray 01/10/21 09:00 01/20/21 08:22 Fluticasone Propionate 0.05% Na Spr 16 Gm Btl (*Bkc) NASAL 1 spray DAILY IVONE Administration Furosemide
--- NOTE | 2021-01-20 12:33 | PM.DS ---
DS: Admitting Diagnosis Admitting Diagnosis Admitting Diagnosis: Acute respiratory failure with hypoxia DS: Discharge Diagnosis Discharge Diagnosis (1) Acute respiratory failure with hypoxia: Code(s): J96.01 - Acute respiratory failure with hypoxia Status: Acute Assessment and Plan: Resolved. CXR demonstrated pulmonary edema, moderate pleural effusions, and bibasilar opacities. BNP markedly elevated at 24,700. Most likely secondary to CHF exacerbation. D-Dimer was elevated, therefore chest CTA evaluated which was negative for pulmonary embolism but showed large effusion on right and moderate to large on left with compressive atelectasis. She is s/p thoracentesis 01/12/21. Clinically, she does not appear to have pneumonia and bibasilar opacities are likely consistent with atelectasis. She required up to 4 L supplemental oxygen, but was weaned and was stable on room air for several days. She had a home O2 eval on 01/13/2021, which demonstrated a need for 1 L oxygen at rest. Discussed with respiratory therapist. No need for repeat home O2 eval as she will be going to nursing facility. They can titrate oxygen as needed there, however she likely will not need any supplemental O2 given her overall improvement. (2) CHF exacerbation: Qualifiers: Heart failure type: unspecified Qualified Code(s): I50.9 - Heart failure, unspecified Code(s): I50.9 - Heart failure, unspecified Status: Acute Assessment and Plan: Supported by CXR findings of pulmonary edema, moderate pleural effusions, and BNP 24,700. She noted increased dyspnea for 1 month, worsens a week prior to admission, orthopnea, and increased swelling to extremities. Echocardiogram performed 01/10/21 demonstrated EF 55-60%, grade II diastolic dysfunction. She responded favorably to diuresis. She was seen in consultation by cardiology. She will continue Lasix 20 mg daily and will need to follow-up with her primary production team advisor. (3) Acute kidney injury superimposed on CKD: Code(s): N17.9 - Acute kidney failure, unspecified; N18.9 - Chronic kidney disease, unspecified Status: Acute Assessment and Plan: Baseline creatinine appears to be 1.0-1.1. CKD related to history of hypertension and diabetes. Acute injury was related to continue diuresis. Creatinine slowly crept up to 1.7, but then leveled off to around 1.3. This will likely be her new baseline given her need for ongoing diuretic therapy. Repeat BMP in 1 week. (4) Nausea: Code(s): R11.0 - Nausea Status: Acute Assessment and Plan: She presented with nausea, which was initially felt to be related to her constipation and did improved. She did develop nausea again later in her stay, likely due to hyperkalemia versus uremia, which improved. Nausea resolved. Continue antiemetics as needed. She was tolerating a solid diet. (5) Hyperkalemia: Code(s): E87.5 - Hyperkalemia Status: Resolved Assessment and Plan: 5.7 upon admission. This was felt to be related to oral potassium supplementation in combination with underlying CKD. Potassium levels normalized, however subsequently started to increase again up to 5.4 which may have been due to SAHIL. Low potassium diet initiated. Potassium levels normalized with improved renal function. Repeat BMP in 1 week. Home potassium supplements held until further evaluation. (6) Proteinuria: Code(s): R80.9 - Proteinuria, unspecified Status: Acute Assessment and Plan: Prealbumin low. Urinalysis demonstrates 2+ protein and she has elevated random urine protein. Albumin and protein low on CMP. 24 hour urine protein 504. Renal ultrasound showed normal kidneys. Nephrotic syndrome considered however she does not have nephrotic range proteinuria. This is felt to be due to hx of DM, HTN, and vascular disease. Serological studies ordered to r/o autoimmune disease or vasculitis negative. C3
--- NOTE | 2021-01-20 13:00 | PC.NURSE ---
Report called to
[2021-01-20 14:00] VITALS: BP 108/46; PULSE 70; RESP 18; TEMP 36.5; O2SAT 100
== END 2021-01-20 14:30 | DRG 291 ==
LOC: ANHED 14:40 → ANHIMU 17:27 → ANH3MEDSUR 01-10 04:40
PROVIDERS: Internal Medicine; Internal Medicine Cardiovascular Disease; Internal Medicine Nephrology; Physician Assistant; Admitting Provider Family Medicine; Emergency Provider Emergency Medicine; PCP Family Medicine; Visit Provider Family Medicine
DX: I13.0 Hypertensive heart and chronic kidney disease with heart failure and stage 1 through stage 4 chronic kidney disease, or unspecified chronic kidney disease (principal); J96.01 Acute respiratory failure with hypoxia; I50.43 Acute on chronic combined systolic (congestive) and diastolic (congestive) heart failure; A04.72 Enterocolitis due to Clostridium difficile, not specified as recurrent; J90 Pleural effusion, not elsewhere classified; N17.9 Acute kidney failure, unspecified; E11.9 Type 2 diabetes mellitus without complications; I25.10 Atherosclerotic heart disease of native coronary artery without angina pectoris; J44.9 Chronic obstructive pulmonary disease, unspecified; E87.5 Hyperkalemia; I48.91 Unspecified atrial fibrillation; E78.5 Hyperlipidemia, unspecified; L40.50 Arthropathic psoriasis, unspecified; K21.9 Gastro-esophageal reflux disease without esophagitis; I35.0 Nonrheumatic aortic (valve) stenosis; R80.9 Proteinuria, unspecified; D63.8 Anemia in other chronic diseases classified elsewhere; N18.30 Chronic kidney disease, stage 3 unspecified
CPT/HCPCS: 32555; 36415; 71045; 71275; 74019; 76775; 80048; 80053; 80061; 80069; 81001; 81050; 82042; 82274; 82570; 82595; 82607; 82728; 82746; 82945; 82948; 83036; 83520; 83540; 83550; 83615; 83735; 83880; 83986; 84132; 84134; 84155; 84156; 84157; 84165; 84166; 84311; 84484; 85014; 85018; 85025; 85027; 85380; 85610; 85730; 86021; 86038; 86160; 86225; 87015; 87070; 87075; 87102; 87116; 87205; 87206; 88104; 88108; 88184; 88305; 89051; 93005; 93306; 93970; 93971; 94618; 94762; 96372; 96374; 96376; 97110; 97161; 97165; 97530; 97535; 99285; A9270; C9803; G0378; J1650; J1940; J2405; J2550; Q9967; U0003; U0005

== ENCOUNTER 2021-03-10 08:10 | Inpatient (IN) | payer MEDICARE, MEDICAID, SELFPAY ==
[2021-03-10] VITALS (56 sets, daily range): BP systolic 62–127; BP diastolic 42–88; PULSE 68–93; RESP 12–20; TEMP 35.7–36.4; O2SAT 94–100; BMI 29.9
--- NOTE | ~2021-03-10 | US_ITS ---
US abdomen complete EXAMINATION: US Abdomen Complete INDICATION: Elevated liver function tests. PROCEDURE: Realtime High Resolution abdomen ultrasound. COMPARISON: No prior studies for comparison FINDINGS: Gallbladder is surgically absent. Common bile duct measures 4 mm. Liver echotexture within normal limits without focal mass. Pancreas within normal limits. Pancreati c tail is obscured by bowel gas. Spleen is not visualized due to overlying bowel gas. Renal echotext ure is within normal limits bilaterally without hydronephrosis, contour deforming mass or renal stone . Right kidney measures 10.2 cm. Left kidney measures 9.1 cm. Visualized aspects of the aorta and IVC are within normal limits. Portal vein is patent. No sonograph ic Hood's sign indicated by the technologist. IMPRESSION: 1: Unremarkable abdominal ultrasound. Reviewed, dictated and finalized at location A.
--- NOTE | ~2021-03-10 | XR_ITS ---
XR abdomen/kub 1V 03/11/2021 13:28 Indication: Colitis Procedure: KUB Comparison: 01/15/2021 Findings: Bowel gas pattern is nonspecific with moderate gas in the upper abdomen. There are extensiv e surgical changes of the abdomen and pelvis. There is a dynamic compression screw in the right femor al neck. Impression: 1: Nonspecific bowel gas pattern. Extensive postoperative changes. Reviewed, dictated and finalized at location A. Impression: 1: Nonspecific bowel gas pattern. Extensive postoperative changes.
--- NOTE | ~2021-03-10 | XR_ITS ---
XR chest port-a-cath/central INDICATION: Central line placement. Dyspnea. TECHNIQUE: 2 view chest. FINDINGS: 03/10/2021 There is mild bilateral interstitial prominence and peribronchial cuffing. There is no focal consoli dation, pleural effusion, or pneumothorax. Right IJ central line tip in the right atrium. No pneumoth orax. The cardiomediastinal silhouette is normal.] IMPRESSION: 1. Findings most consistent with bronchiolitis versus an atypical or viral pneumonia. Reviewed, dictated and finalized at location A. IMPRESSION: 1. Findings most consistent with bronchiolitis versus an atypical or viral [facility].
--- NOTE | ~2021-03-10 | XR_ITS ---
XR chest 1V portable 03/10/2021 09:00 Indication: Transient alteration of awareness Procedure: AP portable chest Comparison: Findings: Borderline heart size. No focal air space disease, pulmonary edema, pleural effusion or nick pected pneumothorax. There is atherosclerosis of the aorta and coronary arteries. Impression: 1: No acute cardiopulmonary disease. Reviewed, dictated and finalized at location A. Impression: 1: No acute cardiopulmonary disease.
--- NOTE | ~2021-03-10 | CT_ITS ---
EXAMINATION: CT abdomen pelvis wo con DATE: 03/10/2021 12:22 INDICATION: Abdomen pain. Suspected infection. TECHNIQUE: Computed tomography (CT) of the abdomen and pelvis was performed without intravenous contr ast. The dose-length product was 1241.44 mGy-cm. Automated exposure control and iterative reconstruct ion technique were employed. COMPARISON: None. FINDINGS: Heart size normal. Moderate bilateral pleural effusions with underlying compressive atelect asis. Small pericardial effusion. Small hiatal hernia. The status post cholecystectomy. The liver, spleen, adrenal glands, and kidneys are unremarkable. There are bilateral renal arterial calcifications. There is a right lateral abdomin al wall hernia containing nonobstructed bowel. There is diffuse abnormal thickening of the colon, con sistent with colitis. There is diffuse subcutaneous edema throughout the visualized lower thorax and abdomen, consistent with anasarca. No evidence for aneurysm. Small amount of perirectal fluid. Mild d iffuse mesenteric edema. There is an L4 burst fracture, likely chronic. IMPRESSION: 1. Diffuse abnormal thickening of the colon, consistent with colitis, most likely infectious or infla mmatory. 2: Moderate bilateral pleural effusions. Small pericardial effusion. 3: Right sided spigelian centimeters hernia containing nonobstructed bowel. 4: Anasarca. 5: L4 burst fracture, likely chronic. Reviewed, dictated and finalized at location A. IMPRESSION: 1. Diffuse abnormal thickening of the colon, consistent with colitis, most like ly infectious or inflammatory. 2: Moderate bilateral pleural effusions. Small pericardial effusion. 3: Right sided spigelian centimeters hernia containing nonobstructed bowel. 4: Anasarca. 5: L4 burst fracture, likely chronic.
--- NOTE | 2021-03-10 08:19 | ED.RECABL ---
HPI - Recheck/Abnormal Lab/Rx General Chief Complaint: Recheck/Abnormal Lab/Rx Stated Complaint: AMS/DIABETIC ISSUES Time Seen by Provider: 03/10/21 08:18 History of Present Illness HPI narrative: Sent from [facility] for altered mental status. Per EMS report the patient is usually only oriented x2 today she is lethargic and only minimally verbal. The [facility] suspected hypoglycemia, although reported glucose in the 80. Per EMS glucose was in the 50s. They were not able to get IV access. She was given oral glucose. On arrival here she is not following commands or answering question. She does respond appropriately to noxious stimuli. Related Data Home Medications Medication Instructions Recorded Confirmed acetaminophen [Tylenol Extra 500 mg PO Q6H PRN 03/10/21 03/10/21 Strength] albuterol sulfate 2 puff INHALATION QID PRN 03/10/21 03/10/21 allopurinol 100 mg PO DAILY 03/10/21 03/10/21 apixaban [Eliquis] 5 mg PO BID 03/10/21 03/10/21 aspirin 81 mg PO DAILY 03/10/21 03/10/21 atorvastatin 80 mg PO HS 03/10/21 03/10/21 cranberry extract [cranberry] 250 mg PO DAILY 03/10/21 03/10/21 escitalopram oxalate 20 mg PO DAILY 03/10/21 03/10/21 famotidine 20 mg PO DAILY 03/10/21 03/10/21 ferrous sulfate 325 mg PO DAILY 03/10/21 03/10/21 fluticasone propion-salmeterol 1 inh INHALATION Q12H 03/10/21 03/10/21 fluticasone propionate [Flonase] 1 spray INTRANASAL DAILY 03/10/21 03/10/21 furosemide [Lasix] 20 mg PO DAILY 03/10/21 03/10/21 melatonin 5 mg PO HS PRN 03/10/21 03/10/21 metoprolol tartrate 50 mg PO Q12H 03/10/21 03/10/21 nystatin 1 applic TOPICAL TID 03/10/21 03/10/21 ondansetron 4 mg PO Q6H PRN 03/10/21 03/10/21 potassium chloride [Klor-Con M20] 20 meq PO DAILY 03/10/21 03/10/21 promethazine 25 mg PO TID PRN 03/10/21 03/10/21 sitagliptin [Januvia] 50 mg PO DAILY 03/10/21 03/10/21 spironolactone 25 mg PO DAILY 03/10/21 03/10/21 sulfamethoxazole-trimethoprim 1 tablet PO Q12H 03/10/21 03/10/21 [Bactrim DS] tacrolimus 1 applic TOPICAL BID 03/10/21 03/10/21 travoprost [Travatan Z] 1 drp EACH EYE QPM 03/10/21 03/10/21 Allergies Allergy/AdvReac Type Severity Reaction Status Date / Time morphine Allergy Itching Verified 03/10/21 10:11 hydrocodone AdvReac Nausea Verified 03/10/21 10:11 timolol AdvReac Nausea Verified 03/10/21 10:11 Review of Systems Review of Systems: ROS unobtainable: Yes unobtainable due to mental status PMFSH Past Medical History Medical History (Updated 03/10/21 @ 18:47 by Cornelio Medina MD) Anxiety Aortic stenosis moderate aortic valve stenosis with a peak velocity of 239 cm/s, mean gradient of 12 mmHg, and aortic valve area of 1.2 cm2 Atrial fibrillation C. difficile colitis Patient was diagnosed early December 2020 and is supposed to remain on p.o. vancomycin until 01/24/2021 CHF (congestive heart failure) Chronic kidney disease COPD (chronic obstructive pulmonary disease) Coronary artery disease Diabetes mellitus Essential hypertension GERD (gastroesophageal reflux disease) Glaucoma Hyperlipidemia Hypo-osmolar hyponatremia Intellectual disability Psoriatic arthritis Surgical History Surgical History (Updated 03/10/21 @ 15:33 by Fátima Villalba NP) H/O umbilical hernia repair History of hysteroscopy January 2013 Hx of cholecystectomy S/P CABG x 2 Family History Family History Mother Lung disease Social History Social History (Updated 03/10/21 @ 15:34 by Fátima Villalba NP) Social History: She reports that she has lived at [facility] for approximately 1 year. She is and her lives at the [facility] with her. They have been for 32 years. They moved to the [facility] when her had a lower extremity amputation. the patient has no children. She is disabled She reports that both of her parents are still living. Primary care provider: Dr. Giovanny Barajas Code status: Full co
[2021-03-10] MEDS: GLUCAGON FOR INJ 1 MG VIAL IM (08:20)
--- NOTE | 2021-03-10 08:20 | ECG_ITS ---
Measurements Intervals [place] Rate: 72 P: 64 NM: 169 QRS: 213 QRSD: 97 T: 101 QT: 447 QTc: 490 Interpretive Statements SINUS OR ECTOPIC ATRIAL RHYTHM RIGHT AXIS DEVIATION INCOMPLETE RIGHT BUNDLE BRANCH BLOCK LOW QRS VOLTAGE- LIMB LEADS ST-T WAVE ABNORMALITY IN ANTEROSEPTAL LEADS- CONSIDER ISCHEMIA BASELINE ARTIFACT- I, II, III, AVR, AVL, AVF, V4-V6 ABNORMAL ECG Electronically Signed On 03-10-2021 14:08:12 CDT by Demian Smith D.O.
[2021-03-10 08:52] LABS: Glucose Point of Care 158 (65-105)
[2021-03-10 08:52] LABS: Glucose Point of Care 46 (65-105)
--- NOTE | 2021-03-10 09:00 | PC.NURSE ---
Pt. is difficult to obtain IV access. RN attempted multiple times. ERP aware. ERP at bedside with ultrasound to place peripheral IV access. Pt. is hypotensive.
--- NOTE | 2021-03-10 09:00 | PC.NURSE ---
Urinary catheter inserted prior to arrival.
[2021-03-10] MEDS: SODIUM CHLORIDE 0.9% IV 1,000 ML 999 ML IV CONT ×2 (09:40→14:20)
[2021-03-10 09:51] LABS: Add Urine Microscopic? YES; Appearance Urine Cloudy (Clear); Bacteria Urine 3+ /hpf; Bilirubin Urine Negative (Negative); Blood Urine 3+ (Negative); Color Urine Amber (Yellow); Glucose Urine UA Negative (Negative); Ketones Urine Trace mg/dL (Negative); Leukocyte Esterase Ur 3+ LEU/UL (Negative); Mucus Urine Few /lpf; Nitrate Urine Negative (Negative); Protein Urine 2+ mg/dL (Negative); RBC Urine 51-75 /hpf (0-2); Specific Grav Ur 1.021 (1.001-1.035); Squamous Epithelial Cell Urine Rare /hpf (Few); Urobilinogen Urine Negative mg/dL (<2.0); WBC Urine >75 /hpf
[2021-03-10 10:07] LABS: Basophils Absolute Auto 0.1 K/mm3 (0.0-0.1); Basophils Percent Auto 0.4 % (0.2-1.2); Eosinophils Percent Auto 0.1 % (0-4.4); Hematocrit 31.4 % (37.0-47.0); Hemoglobin 10.2 g/dL (12.0-15.0); Immature Granulocyte Absolute 0.12 K/mm3 (0.00-0.031); Immature Granulocyte Percent A 0.9 % (0-0.5); Lymphocytes Absolute Auto 1.14 K/mm3 (0.9-3.2); Lymphocytes Percent Auto 8.2 % (18.3-44.2); Mean Corpuscular HGB Conc 32.5 g/dl (32-36); Mean Corpuscular Volume 86.3 fl (80-100); Mean Platelet Volume 9.7 fl (7.4-10.4); Monocytes Absolute Auto 0.6 K/mm3 (0.1-0.6); Monocytes Percent Auto 4.2 % (2.6-8.5); Neutrophils Absolute Auto 12.1 K/mm3 (1.3-6.7); Neutrophils Percent Auto 86.2 % (45.5-73.1); Platelet Count Result 223 k/mm3 (150-375); Red Blood Count 3.64 M/mm3 (4.2-5.4); Red Cell Distribution Width 18.2 % (11.5-14.5)
[2021-03-10 10:11] LABS: INR 2.4; Lactic Acid Reflex 3.9 mmol/L (0.7-2.1); Prothrombin Time 26.4 Seconds (11.1-14.7)
--- NOTE | 2021-03-10 10:12 | PC.NURSE ---
ERP aware of Pt. BG improving with Glucagon. BG 158 at 849. ERP via verbal order readback, discontinue D50.
[2021-03-10] MEDS: SODIUM CHLORIDE 0.9% IV 1,000 ML 999 ML (10:13)
--- NOTE | 2021-03-10 10:13 | PC.NURSE ---
BP improving from IV fluids. ERP aware, per ERP via verbal order readback give another NS bolus 1L.
[2021-03-10 10:30] LABS: Alanine Aminotransferase 220 U/L (4-35); Albumin Level 1.6 g/dL (3.5-5.1); Alkaline Phosphatase 144 U/L (38-126); Anion Gap 6 mmol/L (8-16); Bilirubin,Total 0.7 mg/dL (0.2-1.3); Blood Urea Nitrogen 45 mg/dL (7-17); Carbon Dioxide 27 mmol/L (22-30); Chloride 105 mmol/L (98-107); Estimated CRCL calculation 18 ml/min; Estimated Glomerular Filt Rate 16; Glucose 72 mg/dL (65-105); Potassium 3.6 mmol/L (3.4-5.0); Sodium 138 mmol/L (137-145)
[2021-03-10 10:48] LABS: Partial Thromboplastin Time < 20.0 SECONDS (22.3-36.8)
[2021-03-10] MEDS: SODIUM CHLORIDE 0.9% IV 500 ML 999 ML IV CONT (11:00)
[2021-03-10 11:10] LABS: Aspartate Amino Transferase 895 U/L (14-36)
[2021-03-10] MEDS: NOREPINEPHRINE 8 MG/D5W 250 ML 8 MG/250 ML BAG 18.75 MG IV CONT (11:39)
[2021-03-10] MEDS: VANCOMYCIN ORAL 125 MG/2.5 ML SYRUP PO ×3 (11:59→23:12)
[2021-03-10 12:58] LABS: Reflex Lactic Acid Yes or No Add Lactic
--- NOTE | 2021-03-10 13:31 | WPDCNINT ---
Assessment and Plan Assessment and plan (1) Septic shock: Code(s): A41.9 - Sepsis, unspecified organism; R65.21 - Severe sepsis with septic shock Status: Acute Assessment and Plan: Secondary to colitis most likely C diff and UTI IV fluid bolus and infusion Levophed titration to maintain map Blood cultures Check C diff Broad-spectrum antibiotics-oral vancomycin, IV Flagyl and cefepime (2) Diabetes mellitus: Code(s): E11.9 - Type 2 diabetes mellitus without complications Status: Acute Assessment and Plan: Patient was hypoglycemic on presentation which has resolved now Monitor blood sugars and treat with sliding scale every 4 hours If hypoglycemia recurs will switch IV fluids to dextrose (3) UTI (urinary tract infection): Code(s): N39.0 - Urinary tract infection, site not specified Status: Acute Assessment and Plan: See above (4) Encephalopathy: Code(s): G93.40 - Encephalopathy, unspecified Status: Acute Assessment and Plan: Will likely toxic metabolic encephalopathy (5) Colitis: Code(s): K52.9 - Noninfective gastroenteritis and colitis, unspecified Status: Acute Assessment and Plan: Broad-spectrum antibiotics Check C diff Empiric treatment for C diff in the form of Flagyl and vancomycin (6) SAHIL (acute kidney injury): Code(s): N17.9 - Acute kidney failure, unspecified Status: Acute Assessment and Plan: Likely secondary to septic shock Strict I&Os Check CK and ultrasound Monitor and replace electrolytes as needed (7) Abnormal thyroid blood test: Code(s): R79.89 - Other specified abnormal findings of blood chemistry Status: Acute Assessment and Plan: TSH elevated Check free T3 and T4 (8) Abnormal liver enzymes: Code(s): R74.8 - Abnormal levels of other serum enzymes Status: Acute Assessment and Plan: Check hepatitis panel and right upper quadrant ultrasound Monitor levels (9) CHF (congestive heart failure): Code(s): I50.9 - Heart failure, unspecified Status: Acute Assessment and Plan: Check BNP and echo Hold further IVF and Check NICOM (10) Lung infiltrate: Code(s): R91.8 - Other nonspecific abnormal finding of lung field Status: Acute Assessment and Plan: Most likely secondary to pulmonary edema COVID rule out PCR sent Patient will be in isolation Hold further IV fluids DVT prophylaxis -Lovenox Nutrition -clear liquid diet Code Status - Full Code Total Critical Care Time - 35 minutes Due to a high probability of clinically significant, life threatening deterioration, the patient required my highest level of preparedness to intervene emergently and I personally spent this critical care time directly and personally managing the patient. This critical care time included obtaining a history; examining the patient; pulse oximetry; ordering and review of studies; arranging urgent treatment with development of a management plan; evaluation of patient's response to treatment; frequent reassessment; and discussions with other providers. It was exclusive of separately billable procedures and treating other patients and teaching time. Please see Assessment and Plan section and the rest of the note for further information on patient assessment and treatment Bundle Helper Consult Note Consult date: 03/10/21 Time Seen: 13:30 HPI: Ana Paula Walden is a 65 year old female history of intellectual disability who was [facility] from [facility] with altered mental status. Patient was lethargic on presentation and is found to be hypoglycemic and hypotensive. Workup showed sepsis, UTI and colitis. She was given IV fluid bolus but her blood pressure remained low. Right IJ central venous catheter was placed by ER physician and patient was started on Levophed. Further IV fluids were not given due to concern of volume overload as patient has C
[2021-03-10 14:06] LABS: Creatine Kinase 173 U/L (30-135)
[2021-03-10 14:07] LABS: Lactic Acid 3.7 mmol/L (0.7-2.1)
[2021-03-10 14:16] LABS: NT Pro B Type Natriuretic Pept 8680 pg/mL (5-100)
--- NOTE | 2021-03-10 14:21 | PC.NURSE ---
Per ERP via verbal order readback, give patient additional 1L of NS bolus.
[2021-03-10 14:27] LABS: Glucose Point of Care 80 (65-105)
[2021-03-10 14:56] LABS: Free T4 Free Thyroxine 2.56 ng/mL (0.78-2.19)
[2021-03-10 15:10] LABS: Hepatitis B Surface Antigen Negative (Negative)
[2021-03-10] MEDS: CENTRAL LINE FLUSH 10 ML IV PUSH ×3 (15:17→21:18)
[2021-03-10] MEDS: metroNIDAZOLE 500 MG/ISO 100ML 500 MG/100 ML BAG 100 MG IVPB ×2 (15:17→20:14)
[2021-03-10] MEDS: VASOPRESSIN INJ 100 UNITS in DEXTROSE 5% 95 ML IV CONT (15:18)
[2021-03-10] MEDS: NOREPINEPHRINE 8 MG/D5W 250 ML 8 MG/250 ML BAG 28.13 MG IV CONT (15:18)
[2021-03-10 15:24] LABS: HAV RESULT Negative (Negative); Hepatitis B Core IgM Result Negative (Negative)
--- NOTE | 2021-03-10 15:24 | PM.IMHP ---
H&P: HPI History of Present Illness Date/Time: 03/10/21 15:24Thialla is a 65-year-old female patient who lives in [facility] with her of 32 years. Patient does have some mental delays was answering the questions to the best of her knowledge. The patient is typically alert orientated to self and place but not always time. When I saw the patient she was moaning in the room. She is hard of hearing so was difficult to communicate with her. She stated that she was moaning because she just did not feel very well. It was reported that the patient recently was treated for C diff . The patient still continues to have diarrhea. This morning the patient was lethargic and intermittently verbal. The [facility] suspected that she was hypoglycemic but her blood sugar was in the 80s. When EMS was activated blood sugar was in the 50s. She did receive oral glucose because they were unable to get an IV access. Here her white count was noted to be 14.0. H&H 10.2 and 31.4. Her creatinine was noted to be 2.9 she appears to be very dry. her lactic history 0.7. Liver enzymes are elevated. T4 and TSH her elevated. The patient was also found to have urinary tract infection was started on Rocephin. Her blood pressure dropped down the 62/42. A central line was placed In the emergency room and the patient was started on Levophed. The patient was started on p.o. vancomycin as well for her Colitis with possible C diff. her CT of the abdomen was read as 1.Diffuse abnormal thickening of the colon, consistent with colitis, most likely infectious or inflammatory. 2: Moderate bilateral pleural effusions. Small pericardial effusion. 3: Right sided spigelian centimeters hernia containing nonobstructed bowel. 4: Anasarca. 5: L4 burst fracture, likely chronic. the patient was consulted by plastic duplicator who has already seen the patient and made recommendations. patient is being admitted to inpatient ice on the date of service 03/10/2021 Chief Complaint: Lethargic Review of Systems Review of Systems: All systems reviewed & are unremarkable except as noted in HPI and below Constitutional: Constitutional: Reports as per HPI and Reports no additional constitutional complaints Eyes: Eyes: Reports as per HPI and Reports no additional eye complaints ENT: Reports system reviewed and no additional complaints, except as documented and Reports Normal hearing present Cardiovascular: Cardiovascular: Reports no additional cardiovascular complaints Respiratory: Respiratory: Reports no additional respiratory complaints and Reports no additional respiratory complaints Gastrointestinal: Gastrointestinal: Reports as per HPI and Reports no additional gastrointestinal complaints Musculoskeletal: Musculoskeletal: Reports no additional musculoskeletal complaints Integumentary/Breasts: Skin/Breast: Reports system reviewed and no additional complaints, except as docu and Reports as per HPI Neurologic: Reports system reviewed and no additional complaints, except as documented, Reports as per HPI and Reports Normal hearing present Psychiatric: Psychiatric: Reports no additional psychiatric complaints and Reports as per HPI Endocrine: Endocrine: Reports no additional endocrine complaints Hematologic/Lymphatic: Hematologic/Lymphatic: Reports no additional hematologic/lymphatic complaints Allergic/Immunologic: Allergic/Immunologic: Reports no additional allergic/immunologic complaints [facility] Past Medical History Medical History (Updated 03/10/21 @ 15:54 by Fátima Villalba NP) Anxiety Aortic stenosis moderate aortic valve stenosis with a peak velocity of 239 cm/s, mean gradient of 12 mmHg, and aortic valve area of 1.2 cm2 Atrial fibrillation C. difficile colitis Patient was diagnosed early December 2020 and is supposed to remain on p.o. vancomycin until 01/24/2021 CHF (congestive heart failure) Chronic kidney disease COPD (chronic obstructive pulmonary disease) Coronary
[2021-03-10 15:28] LABS: Hepatitis C Virus Antibody Negative (Negative)
--- NOTE | 2021-03-10 16:18 | PHAR ---
TALKED TO VICKY PEREZ'Vera RENAL DOSE ADJUSTMENT OF CEFEPIME TO Q12HR
[2021-03-10 17:05] LABS: Glucose Point of Care 85 (65-105)
[2021-03-10] MEDS: ONDANSETRON INJ 4 MG/2 ML VIAL IV PUSH (18:30)
--- NOTE | 2021-03-10 18:36 | ADMGEN ---
This patient, Ana Paula Walden, was admitted to Intensive Care Unit-8 at 1500. Patient/family oriented to hospital policies and general routines including ID bracelet, bed and alarms, visiting hours, pain management, procedures, bathroom and other care routines, personal items, smoking policy, room service/diet, and visiting hours. Information on how to activate the Rapid Response Team has been discussed. Patient/Family are encouraged to report perceived risks to care and to ask questions if they do not understand what they are told or what they should do.
[2021-03-10 18:43] LABS: Lactic Acid Reflex 5.8 mmol/L (0.7-2.1)
[2021-03-10] MEDS: DEXTROSE 50% 25 GM/50 ML SYRINGE IV PUSH (20:11)
[2021-03-10 20:34] LABS: Glucose Point of Care 121 (65-105)
[2021-03-10 20:34] LABS: Glucose Point of Care 68 (65-105)
[2021-03-10 20:40] LABS: Fractional Inspired Oxygen 36 %; HCO3 VBG 17.9 mEq/l (24.0-30.0); PCO2 VBG 31.4 mmHg (42.0-48.0); PO2 VBG 160.5 mmHg (35.0-45.0); pH VBG 7.373 (7.300-7.400)
[2021-03-10 20:41] LABS: Device NASAL CANNULA
[2021-03-10] MEDS: HYDROCORTISONE SODIUM SUCCINATE 100 MG/2 ML VIAL IV PUSH (21:18)
[2021-03-10] MEDS: NOREPINEPHRINE 8 MG/D5W 250 ML 8 MG/250 ML BAG 20.63 MG IV CONT (22:31)
[2021-03-10] MEDS: ALBUMIN HUMAN 25% 25 GM/100 ML 100 ML IVPB (23:12)
[2021-03-10 23:28] LABS: Glucose Point of Care 119 (65-105)
[2021-03-11] VITALS (18 sets, daily range): BP systolic 60–101; BP diastolic 29–72; PULSE 71–126; RESP 19–24; TEMP 35.9–36.4; O2SAT 82–100
[2021-03-11] MEDS: metroNIDAZOLE 500 MG/ISO 100ML 500 MG/100 ML BAG 100 MG IVPB ×2 (01:57→09:47)
[2021-03-11] MEDS: ALBUMIN HUMAN 25% 25 GM/100 ML 100 ML IVPB ×2 (05:32→13:32)
[2021-03-11] MEDS: CENTRAL LINE FLUSH 10 ML IV PUSH ×2 (05:35→13:58)
[2021-03-11] MEDS: HYDROCORTISONE SODIUM SUCCINATE 100 MG/2 ML VIAL IV PUSH ×2 (05:36→13:54)
[2021-03-11] MEDS: VANCOMYCIN ORAL 125 MG/2.5 ML SYRUP PO (05:39)
[2021-03-11 05:41] LABS: Basophils Percent Auto 0.1 % (0.2-1.2); Hematocrit 25.1 % (37.0-47.0); Hemoglobin 8.3 g/dL (12.0-15.0); Immature Granulocyte Absolute 0.45 K/mm3 (0.00-0.031); Immature Granulocyte Percent A 1.3 % (0-0.5); Lymphocytes Absolute Auto 0.37 K/mm3 (0.9-3.2); Lymphocytes Percent Auto 1.1 % (18.3-44.2); Mean Corpuscular HGB Conc 33.1 g/dl (32-36); Mean Corpuscular Hemoglobin 28.2 pg (26-34); Mean Corpuscular Volume 85.4 fl (80-100); Mean Platelet Volume 9.9 fl (7.4-10.4); Monocytes Absolute Auto 0.4 K/mm3 (0.1-0.6); Monocytes Percent Auto 1.2 % (2.6-8.5); Neutrophils Absolute Auto 33.3 K/mm3 (1.3-6.7); Neutrophils Percent Auto 96.3 % (45.5-73.1); Nucleated Red Blood Cells Perc 0.1 % (0.0-0.2); Platelet Count Result 258 k/mm3 (150-375); Red Blood Count 2.94 M/mm3 (4.2-5.4); Red Cell Distribution Width 18.4 % (11.5-14.5); White Blood Count 34.6 K/mm3 (4.5-10.0)
[2021-03-11 06:25] LABS: Glucose Point of Care 117 (65-105)
[2021-03-11] MEDS: NOREPINEPHRINE 8 MG/D5W 250 ML 8 MG/250 ML BAG 28.13 MG IV CONT (09:42)
[2021-03-11 09:46] LABS: Alanine Aminotransferase 324 U/L (4-35); Albumin Level 1.8 g/dL (3.5-5.1); Alkaline Phosphatase 144 U/L (38-126); Anion Gap 16 mmol/L (8-16); Bilirubin,Total 0.4 mg/dL (0.2-1.3); Blood Urea Nitrogen 39 mg/dL (7-17); Carbon Dioxide 14 mmol/L (22-30); Chloride 108 mmol/L (98-107); Estimated CRCL calculation 17 ml/min; Estimated Glomerular Filt Rate 15; Glucose 131 mg/dL (65-105); Magnesium 1.6 mg/dL (1.6-2.3); Potassium 4.1 mmol/L (3.4-5.0); Sodium 138 mmol/L (137-145)
[2021-03-11 09:48] LABS: Aspartate Amino Transferase 1450 U/L (14-36)
[2021-03-11] MEDS: ENOXAPARIN 30 MG/0.3 ML SYRINGE SUB-Q (09:48)
[2021-03-11 10:00] LABS: Glucose Point of Care 103 (65-105)
--- NOTE | 2021-03-11 10:10 | WPDINTPN ---
Progress Note: A&P Assessment and Plan (1) Septic shock: Code(s): A41.9 - Sepsis, unspecified organism; R65.21 - Severe sepsis with septic shock Status: Acute Assessment and Plan: Secondary to colitis most likely C diff and UTI IV fluid bolus was given on presentation but patient is overall volume overloaded as evidenced from CT showing pleural effusions and anasarca On arrival to ICU NICOM was done and patient was not responsive to further IV fluid bolus Continue Levophed vasopressin and stress dose hydrocortisone 25% albumin added Blood cultures sent and pending Pending C diff Continue Broad-spectrum antibiotics-oral vancomycin, IV Flagyl and cefepime Suspect cardiogenic component-ECHO is ordered and pending (2) Diabetes mellitus: Code(s): E11.9 - Type 2 diabetes mellitus without complications Status: Acute Assessment and Plan: Patient was hypoglycemic on presentation which has resolved now Monitor blood sugars and treat with sliding scale every 4 hours If hypoglycemia recurs will switch IV fluids to dextrose (3) UTI (urinary tract infection): Code(s): N39.0 - Urinary tract infection, site not specified Status: Acute Assessment and Plan: See above (4) Encephalopathy: Code(s): G93.40 - Encephalopathy, unspecified Status: Acute Assessment and Plan: Will likely toxic metabolic encephalopathy (5) Colitis: Code(s): K52.9 - Noninfective gastroenteritis and colitis, unspecified Status: Acute Assessment and Plan: Broad-spectrum antibiotics Check C diff Empiric treatment for C diff in the form of Flagyl and vancomycin Persistently elevated lactic acid level Will consult general surgery although it does not appear to be ischemic from CT report (6) SAHIL (acute kidney injury): Code(s): N17.9 - Acute kidney failure, unspecified Status: Acute Assessment and Plan: Likely secondary to septic shock. Worsening creatinine Strict I&Os CK mildly elevated Pending ultrasound Monitor and replace electrolytes as needed (7) Abnormal thyroid blood test: Code(s): R79.89 - Other specified abnormal findings of blood chemistry Status: Acute Assessment and Plan: TSH elevated Check free T3 and T4 (8) Abnormal liver enzymes: Code(s): R74.8 - Abnormal levels of other serum enzymes Status: Acute Assessment and Plan: Likely secondary to shock liver Negative hepatitis panel Pending right upper quadrant ultrasound Monitor levels (9) CHF (congestive heart failure): Code(s): I50.9 - Heart failure, unspecified Status: Acute Assessment and Plan: Elevated BNP Pending echo NICOM not responsive to IV fluid bolus (10) Metabolic acidosis: Code(s): E87.2 - Acidosis Status: Acute Assessment and Plan: And IV bicarb and change IV fluids to bicarb (11) Lung infiltrate: Code(s): R91.8 - Other nonspecific abnormal finding of lung field Status: Acute Assessment and Plan: Most likely secondary to pulmonary edema COVID rule out PCR sent and pending Patient will be in isolation Cautious IV fluids Additional Plan DVT prophylaxis -Lovenox Nutrition -clear liquid diet Code Status - Full Code Total Critical Care Time - 40 minutes Due to a high probability of clinically significant, life threatening deterioration, the patient required my highest level of preparedness to intervene emergently and I personally spent this critical care time directly and personally managing the patient. This critical care time included obtaining a history; examining the patient; pulse oximetry; ordering and review of studies; arranging urgent treatment with development of a management plan; evaluation of patient's response to treatment; frequent reassessment; and discussions with other providers. It was exclusive of separately billable procedures and treating ot
[2021-03-11] MEDS: SODIUM BICARBONATE 8.4% 50 MEQ/50 ML SYRINGE 100 MEQ IV PUSH ×2 (11:04→13:59)
[2021-03-11] MEDS: CALCIUM CHLOR 1,000MG/100ML NS 1,000 MG/100 ML BAG 100 MG IVPB (11:12)
[2021-03-11] MEDS: NOREPINEPHRINE 8 MG/D5W 250 ML 8 MG/250 ML BAG 56.25 MG IV CONT ×2 (11:53→14:43)
[2021-03-11] MEDS: SODIUM BICARBONATE 8.4% 150 MEQ in WATER, STERILE FOR INJECTION 950 ML 75 MEQ IV CONT (12:20)
[2021-03-11] MEDS: SODIUM CHLORIDE 0.9% IV 1,000 ML 999 ML IV CONT (12:22)
--- NOTE | 2021-03-11 13:04 | ECG_ITS ---
Measurements Intervals [place] Rate: 123 P: WI: 0 QRS: 106 QRSD: 145 T: 26 QT: 347 QTc: 497 Interpretive Statements ATRIAL FLUTTER/TACHYCARDIA WITH RAPID VENTRICULAR RESPONSE RIGHT AXIS DEVIATION RIGHT BUNDLE BRANCH BLOCK LOW VOLTAGE- DIFFUSE LEADS BASELINE WANDER- V4, V6 ABNORMAL ECG Electronically Signed On 03-11-2021 16:46:38 CDT by Demian Smith D.O.
--- NOTE | 2021-03-11 13:08 | P.PNCROSS_ITS ---
Event Note Event Note Event Note: Since I saw her this morning patient is Levophed requirement has continue to increase. She was on 15 mics of Levophed when I saw her in the morning. And I was called by nurse because she was unable to get noninvasive blood pressure. Patient was on 30 mics of Levophed and vasopressin. I emergently placed arterial line in right femoral site. Patient was hypotensive with systolics in 70s to 80s. While I was doing the procedure she had a bowel movement which had large amount of blood in it. This could explain her deterioration today. On Eliquis at home for AFib although I could not find any mention of Eliquis on the correction paperwork that I saw and the diagnosis mentioned is paroxysmal tachycardia which I am resuming may be AFib. But patient has not been on Eliquis since admission yesterday. Consult GI. Surgery has already been consulted Will transfuse 2 packed red cells at this time Q4H hemoglobin monitoring Check PT INR PTT and fibrinogen IV PPI q.12 hours starting now Will give fluid bolus until blood is available Continue vasopressors. Add epinephrine Patient is fairly tachycardic right now but does not appear to be AFib as it is fairly regular. I will check EKG. May need amiodarone if goes into AFib with RVR IV bicarb given for acidosis. Check ABG I will repeat CT scan of abdomen pelvis once patient is stable enough to be transported I spoke to patient's mother by phone and updated her with patient's current and worsening status. I updated her with patient having septic shock secondary to UTI and colitis, baseline congestive heart failure, acute kidney injury, and now GI bleed. She confirmed that patient is full code. Additional critical care time for the day 60 minutes
[2021-03-11] MEDS: SODIUM CHLORIDE 0.9% IV 500 ML IV CONT (13:09)
[2021-03-11 13:13] LABS: Glucose Point of Care 81 (65-105)
--- NOTE | 2021-03-11 13:16 | WPDPROCEDUR ---
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
[2021-03-11 13:30] LABS: Hematocrit 17.8 % (37.0-47.0); Hemoglobin 5.6 g/dL (12.0-15.0)
[2021-03-11 13:36] LABS: Partial Thromboplastin Time 69.8 SECONDS (22.3-36.8); Prothrombin Time 97.2 Seconds (11.1-14.7)
[2021-03-11 13:36] LABS: Alveolar/Arterial O2 Gradient 131.7 mmHg; Base Excess ABG -12.1 mEq/l (+/-2.0); Fractional Inspired Oxygen 36 %; HCO3 ABG 14.5 mEq/l (22.0-26.0); Oxygen Content ABG 7.9 %vol (16.0-22.0); Oxygen Saturation ABG 94.3 % (95.0-100.0); Oxyhemoglobin 91.3 % THb (90.0-100.0); PO2 ABG 83.2 mmHg (80.0-100.0); PO2 FiO2 Ratio Arterial Blood 2.31 %
[2021-03-11 13:38] LABS: Device NASAL CANNULA; Site Drawn ARTLINE; pH ABG 7.223 (7.350-7.450)
[2021-03-11 13:39] LABS: INR 13.2
[2021-03-11 14:02] LABS: Fibrinogen 74 mg/dl (215-510)
--- NOTE | 2021-03-11 14:29 | PM.IMPN ---
Progress Note: A&P Assessment and Plan (1) Septic shock: Code(s): A41.9 - Sepsis, unspecified organism; R65.21 - Severe sepsis with septic shock Status: Acute Assessment and Plan: Could be secondary to possible C diff or pneumonia or UTI Pt has line in situ receiving blood and vasopressor and IV ABX (2) Diabetes mellitus: Code(s): E11.9 - Type 2 diabetes mellitus without complications Status: Acute Assessment and Plan: Sliding scale insulin and check A1c. (3) UTI (urinary tract infection): Code(s): N39.0 - Urinary tract infection, site not specified Status: Acute Assessment and Plan: Started on cefepime (4) Encephalopathy: Code(s): G93.40 - Encephalopathy, unspecified Status: Acute Assessment and Plan: Could be related to the infection or low blood sugar. Pt has history of MR (5) C. difficile colitis: Code(s): A04.72 - Enterocolitis due to Clostridium difficile, not specified as recurrent Status: Acute Assessment and Plan: The patient was started on oral Vanco home not sure what she was on at the senior care. (6) SAHIL (acute kidney injury): Code(s): N17.9 - Acute kidney failure, unspecified Status: Acute Assessment and Plan: Vasopressors hydration (7) Abnormal thyroid blood test: Code(s): R79.89 - Other specified abnormal findings of blood chemistry Status: Acute Assessment and Plan: Continue to monitor. (8) Abnormal liver enzymes: Code(s): R74.8 - Abnormal levels of other serum enzymes Status: Acute Assessment and Plan: secondary to sepsis and ? MOF (9) CHF (congestive heart failure): Code(s): I50.9 - Heart failure, unspecified Status: Acute Assessment and Plan: HOLD all medications (10) Suspected COVID-19 virus infection: Code(s): Z20.822 - Contact with and (suspected) exposure to COVID-19 Status: Acute Assessment and Plan: The patient was placed in droplet isolation.awaiting result of covid (11) Metabolic acidosis: Code(s): E87.2 - Acidosis Status: Acute Assessment and Plan: Secondary to sepsis (12) Severe anemia: Code(s): D64.9 - Anemia, unspecified Status: Acute Assessment and Plan: Pt to receive blood, BP is low Hb is 5 (13) Pneumonia: Code(s): J18.9 - Pneumonia, unspecified organism Status: Acute Assessment and Plan: Cultures taken pt is on iv Cefepime Covid test is negative Likley bacterial pneumonia. Family aware of prognosis Pt is DNR with active treatments Family would like to come and visit patient Subjective Date/time seen: 03/11/21 14:29 Interval history: Pt is a frail old lady with multiple medical problems, septic shock, severe anaemia, diarrhea, arf, hypotensive, encephalitis V MR, lung finding possible pneumonia bacterial v covid. UTI.elevated liver function. Long discussion with her mother CHRISTOPHER and ASTRID her brother. Realize she is unwell and would like active treatments but would like to make her DNR status. Pt has been unwell for one year in and out of hospital. With different medical issues including UTIs. Both and were admitted to [facility] roughly one year ago before covid, as they could not look after them. has health issues she has health issues and MR. They have visited them but talked only behind glass door over the past year. Family aware her prognosis is poor. Informed them her BP is low which is a critical sign. Covid test is negative, cultures are pending Review of Systems Review of Systems: All systems reviewed & are unremarkable except as noted in HPI and below Exam Narrative: Exam Narrative: Frail elderly lady Neuro: General: oriented to person and oriented to place Cranial nerves: Yes Equal, round and reactive pupils present and Yes hard of hearing Cognition (Neuro): abnormal c
[2021-03-11] MEDS: AMIODARONE 150 MG/D5W 100 ML 150 MG/100 ML BAG 600 MG IV CONT (14:38)
[2021-03-11] MEDS: PANTOPRAZOLE SODIUM IV 40 MG VIAL IV PUSH (14:46)
[2021-03-11] MEDS: PHYTONADIONE ADULT INJ 10 MG in DEXTROSE 5% IN WATER 50 ML 100 MG IVPB (14:49)
--- NOTE | 2021-03-11 14:52 | PM.EVENT ---
Event Note Event Note Event Note: Patient continues to be hypotensive. Hemoglobin came back at 5.6. For units of packed red cells are ordered. Will transfuse 2 units and 2 units are to be on a hold. Her INR came back 13.2 and fibrinogen is 70 for PTT is 69 suggestive of DIC from sepsis. 4 units of FFP and 10 mg of vitamin K ordered. I spoke to Dr. angeles who will see her today but I do not believe there is any surgical option at this point considering how hemodynamically unstable she is. I did get a KUB as patient at this time is too unstable for CT. KUB showed nonspecific bowel gas pattern and postoperative changes and no free air. I will add epinephrine infusion shock. ABG showed metabolic acidosis and patient was given 2 more amps of bicarb
[2021-03-11 14:53] LABS: SARS-CoV-2 RNA PCR Negative
--- NOTE | 2021-03-11 15:08 | WPDGICN ---
Assessment and Plan Additional Plan GI Consultation Dr. Penaloza 11 Mar 2021 This is a 65 year old female jail patient with a history of CAD s/p CABG, CHF, Afib, Aortic Stenosis, Diabetes, CKD, HTN, HLD, COPD, Psoriatic arthritis, Glaucoma, Hyponatremia, C. diff 12/2020, intellectual disability, umbilical hernia repair and CCx who is admitted with decreased mental status. She is diagnosed with Urosepsis. Patient is seen at the request of the [employer] service to evaluate for hematochezia. The patient?s primary care provider is Dr. Shanna Barajas. Patient is obtunded and cannot provide any meaningful history. Patient had large BRBPR earlier today during central line. No report of hematemesis. No history of endocarditis, rheumatic fever, dental prophylaxis, heart valve surgery, bleeding disorder or joint replacement. Allergies: see list. Medications: see list; includes aspirin 81. Social history and Family history: N/C and unknown. Last colonoscopy is unknown. Physical exam: 4+ bilateral lower extremity edema. No jaundice, spider angioma, palmar erythema. Skull is normocephalic atraumatic. Sclera are non-icteric. Oropharynx is clear. Neck is supple without thyromegaly. Lungs are clear. Heart is rate and rhythm regular. S1 and S2 normal. Normal active bowel sounds. Non-tender, non-rigid, non-distended without hepatosplenomegaly or masses. No guarding. Rectal is deferred. Neuro is obtunded. Labs: 03-11-2021 Hct 25->18. MCV 85. INR 13, PTT 70. TBili 0.4, A/P 144, AST 1450, ALT 324 03-10-2021 Hct 31, WBC 14. INR 2.4, PTT < 20 Negative Hep A IgM, Hep B S Ag, Core IgM, S Ag, Hep C. Imaging: CT A/P with diffuse colonic wall thickening, Spigalian hernia and anasarca. Assessment and plan: A. Acute blood loss anemia with hematochezia on aspirin with abnormal imaging-digestive: - Concern that patient has Sepsis with MSOF complicated by DIC and possibly hemolysis - GI bleed most likely r/t ischemic colitis but cannot rule out UGI source - Patient now with SEVERE coagulopathy - IV PPI drip - Correct coagulopathy with vit K, FFP - Follow H+H; transfuse as needed - Check Haptoglobin - Avoid aspirin, NSAIDS and anticoagulants - Given instability and coagulopathy not a candidate for endoscopy B. Abnormal LFT's: - Hemolysis vs ischemia - Hep screen negative - CT with unremarkable liver - Follow for now C. History of C. diff and abnormal imaging-digestive: - Could be related but more likely global ischemia - Check stool for C. diff - Would empirically treat with Vanco pNG Thank you for allowing me to care for your patient. Case discussed with [employer]. Jorgito Penaloza M.D. (c) [phone] Cc: Dr. Shanna Barajas GI Consult Note Consult date/time: 03/11/21 15:08 HPI: Ana Paula Walden is a 65 year old female [facility] Past Medical History Medical History (Updated 03/11/21 @ 14:59 by Hilary Egan MD) Anxiety Aortic stenosis moderate aortic valve stenosis with a peak velocity of 239 cm/s, mean gradient of 12 mmHg, and aortic valve area of 1.2 cm2 Atrial fibrillation C. difficile colitis Patient was diagnosed early December 2020 and is supposed to remain on p.o. vancomycin until 01/24/2021 CHF (congestive heart failure) Chronic kidney disease COPD (chronic obstructive pulmonary disease) Coronary artery disease Diabetes mellitus Essential hypertension GERD (gastroesophageal reflux disease) Glaucoma Hyperlipidemia Hypo-osmolar hyponatremia Intellectual disability Psoriatic arthritis Surgical History Surgical History (Updated 03/10/21 @ 15:33 by Fátima Villalba NP) H/O umbilical hernia repair History of hysteroscopy January 2013 Hx of cholecystectomy S/P CABG x 2 Family History Family History Mother Lung disease Social History Social History (Updated 03/10/21 @ 15:34 by Fátima Villalba NP) Social History: She reports that she has lived at [facility]
--- NOTE | 2021-03-11 15:21 | PM.EVENT ---
Event Note Event Note Event Note: Patient continued to remain in shock despite all aggressive measures including bicarb push, calcium, vasopressors, fluid bolus. Patient was made DNR by family after discussion with Dr. Egan. I did speak to Dr. murrieta spent with GI and he believe the patient's bleeding was likely secondary to DIC from sepsis a did not have any additional recommendations. Epinephrine was added for persistent shock. PRBC infusion was started as wide open. Patient had another large bloody bowel movement. Soon patient lost her pulse. Patient had no palpable pulse in either carotid or femoral artery. No pulse is variation seen on art line. She was bradycardic. She had no heart sounds or respiratory effort. Patient was DNR. Patient was pronounced at 3:18 p.m. All infusions were discontinued. Family is on their way Additional critical care time 40 minutes
--- NOTE | 2021-03-11 15:36 | P.DN_ITS ---
Discharge Sum: Prov Provider Primary care physician: Giovanny Barajas MD Admitting provider: Dustin Traylor MD Consults: 03/10/21 12:52 Consult to Physician Routine Comment: Consulting Provider: Edd Garcia Reason for consultation: Septic shock Has provider been notified: Yes 03/11/21 Consult to Physician Routine Comment: CALLED EXCHANGE WITH CONSULT INFORMATION Consulting Provider: Sumanth Quigley call center supervisor/MD group to consult: General Surgery Reason for consultation: Colitis Has provider been notified: Yes Consult to Physician Routine Comment: called md with consult information Consulting Provider: Jorgito Penaloza call center supervisor/MD group to consult: GI Reason for consultation: GI Bleeding Has provider been notified: Yes Discharge Sum: Diag Contributing Factors (1) Septic shock: (2) Diabetes mellitus: (3) UTI (urinary tract infection): (4) Encephalopathy: (5) C. difficile colitis: (6) SAHIL (acute kidney injury): (7) Abnormal thyroid blood test: (8) Abnormal liver enzymes: (9) CHF (congestive heart failure): (10) Metabolic acidosis: (11) Severe anemia: (12) Pneumonia: Discharge Sum: Summary Date and Time Date of admission: 03/10/21 12:50 Pt is a frail old lady with multiple medical problems, septic shock, severe anaemia, diarrhea, arf, hypotensive, encephalitis V MR, lung finding possible pneumonia. UTI. Elevated liver function. Long discussion with her mother CHRISTOPHER and ASTRID her brother. Realize she is unwell and would like active treatments but would like to make her DNR status. Pt has been unwell for one year in and out of hospital. With different medical issues including UTIs. Both and were admitted to [facility] roughly one year ago before covid, as they could not look after them. has health issues she has health issues and MR. They have visited them but talked only behind glass door over the past year. Family aware her prognosis is poor. Informed them her BP is low which is a critical sign. Covid test is negative, cultures are pending, unfortunately pt despite resuscitation with vasopressors and blood pt at 1518. Family informed. Additional Data Attending physician: Dustin Traylor MD
[2021-03-14 21:11] LABS: Triiodothyronine T3 Free 1.4 pg/mL (2.3-4.2)
== END 2021-03-11 15:18 | disposition expired | DRG 871 ==
LOC: ANHED 13:04 → ANHICU 18:47
PROVIDERS: Internal Medicine; Admitting Provider Internal Medicine; Emergency Provider Emergency Medicine; PCP Family Medicine; Visit Provider Family Medicine
DX: A41.9 Sepsis, unspecified organism (principal); R65.21 Severe sepsis with septic shock; G93.41 Metabolic encephalopathy; K72.00 Acute and subacute hepatic failure without coma; D65 Disseminated intravascular coagulation [defibrination syndrome]; A04.72 Enterocolitis due to Clostridium difficile, not specified as recurrent; N17.9 Acute kidney failure, unspecified; I13.0 Hypertensive heart and chronic kidney disease with heart failure and stage 1 through stage 4 chronic kidney disease, or unspecified chronic kidney disease; I48.20 Chronic atrial fibrillation, unspecified; E87.1 Hypo-osmolality and hyponatremia; D62 Acute posthemorrhagic anemia; E87.2 Acidosis; N39.0 Urinary tract infection, site not specified; E86.0 Dehydration; Z20.822 Contact with and (suspected) exposure to COVID-19; E11.22 Type 2 diabetes mellitus with diabetic chronic kidney disease; N18.9 Chronic kidney disease, unspecified; L40.50 Arthropathic psoriasis, unspecified; E78.5 Hyperlipidemia, unspecified; H40.9 Unspecified glaucoma; K21.9 Gastro-esophageal reflux disease without esophagitis; I25.10 Atherosclerotic heart disease of native coronary artery without angina pectoris; J44.9 Chronic obstructive pulmonary disease, unspecified; I35.0 Nonrheumatic aortic (valve) stenosis; F41.9 Anxiety disorder, unspecified; Z90.49 Acquired absence of other specified parts of digestive tract; Z95.1 Presence of aortocoronary bypass graft; Z66 Do not resuscitate
CPT/HCPCS: 36415; 36430; 36600; 71045; 74018; 74176; 76700; 80053; 80074; 81001; 82550; 82803; 82805; 82948; 83605; 83735; 83880; 84439; 84443; 84481; 85014; 85018; 85025; 85384; 85610; 85730; 86850; 86900; 86901; 86923; 87040; 87077; 87086; 87088; 87186; 87324; 93005; 96361; 96365; 96367; 96372; 99291; A9270; C1751; C9113; C9803; J0282; J0692; J0696; J1610; J1650; J1720; J2405; J3430; J7030; J7040; J7060; P9016; P9047; U0003; U0005